=== PATIENT | female | born 1935 | race Caucasian/White ===

== ENCOUNTER 2016-10-21 18:41 | Observation (INO) ==
[2016-10-21 19:19] LABS: MANUAL DIFF NEEDED? NO
[2016-10-21 19:34] LABS: BASO% 0.2 % (0.0-0.8); EOS% 3.6 % (0.0-10.0); HEMATOCRIT 42.5 % (37.0-47.0); HEMOGLOBIN 13.5 g/dL (12.0-16.0); IMM GRAN# 0.01 X1000 (0.0-0.04); IMM GRAN% 0.1 % (0.0-0.5); LYMPH# 1.65 X1000 (1.2-3.4); MCHC 31.8 g/dL (33-37); MCV 97.7 FL (81-99); MONO# 0.84 X1000 (0.11-0.59); MONO% 10.2 % (1.7-9.3); MPV 9.9 FL (7.4-10.4); NEUT% 65.9 % (42.2-75.2); PLT 344 X1000 (130-400); RBC 4.35 XMIL (4.2-5.4)
[2016-10-21 19:43] LABS: ALBUMIN 4.3 g/dL (3.5-5.0); CALCIUM 9.8 mg/dL (8.8-10.2); MAGNESIUM 2.1 mg/dL (1.5-2.7); POTASSIUM 3.9 mmol/L (3.5-5.1); TOTAL BILIRUBIN 0.3 mg/dL (0.20-1.00); TOTAL PROTEIN 8.5 g/dL (6.3-8.3)
[2016-10-21 20:20] LABS: INR 1.69 (0.86-1.15); PROTIME 21.2 Seconds (12.1-15.5)
[2016-10-21 20:21] LABS: PTT PL 38.3 Seconds (22.6-43.9)
--- NOTE | 2016-10-21 20:27 | Diag Imaging Result Doc PS360 ---
EXAM: CHEST-2 VIEWS HISTORY: CP TECHNIQUE: PA and lateral chest COMMENT: The heart size is slightly enlarged. There is evidence of COPD. There is been no significant change in the appearance of the chest since the previous study of 03/13/2016. IMPRESSION: Stable chest. Electronically signed by Gopi Reyes 10/21/2016 8:23 PM
--- NOTE | 2016-10-21 20:29 | EKG Report ---
Test Performed on : 10/21/2016 7:05:48 PM Test Reason : CHEST PAIN Blood Pressure : / mmHG Vent. Rate : 060 BPM Atrial Rate : 060 BPM P-R Int : 156 ms QRS Dur : 090 ms QT Int : 404 ms P-R-T Axes : 033 -07 061 degrees QTc Int : 404 ms Atrial-paced rhythm Abnormal ECG No previous ECGs available Unconfirmed Result
[2016-10-21] MEDS ORDERED: PRINIVIL PO ONE (21:03)
[2016-10-21] MEDS ORDERED: CORDARONE PO ONE (21:15)
[2016-10-21] MEDS ORDERED: NS 1,000 ML IV ONE (23:05)
[2016-10-22] MEDS ORDERED: CORDARONE PO ONE (00:15)
[2016-10-22] MEDS ORDERED: PRINIVIL PO ONE (00:15)
[2016-10-22] MEDS ORDERED: XARELTO PO SCH ×2 (06:00→09:15)
[2016-10-22] MEDS ORDERED: PRINIVIL PO SCH (09:15)
[2016-10-22] MEDS: VITAMIN B-12 PO SCH (10:26)
[2016-10-22] MEDS: VITAMIN D PO SCH (10:27)
[2016-10-22] MEDS: CORDARONE PO SCH (10:27)
--- NOTE | 2016-10-22 10:44 | HISTORY AND PHYSICAL ---
PRIMARY CARE PHYSICIAN: Dr. Castanon. CHIEF COMPLAINT: Syncopal episode. HISTORY OF PRESENTING ILLNESS: This is an 81-year-old female who presents to [facility] ER with complaints of a syncopal episode. States that around midnight she had gotten up to go to the bathroom. When she went to stand up, she apparently passed out. States that she does not remember that episode, but remembers waking up on the floor, stayed there pretty much through the entire night as she was unable to get up out of the floor. The next morning, she states that she scooted herself across the floor into her living room to a phone, called a friend who had manager merchandise at her apartment complex come in, unlocked the door and called 911 where she was brought to the emergency room. Workup was essentially benign. Chest x- ray showed a stable chest. EKG showed an atrial paced rhythm at 60. She has a mild elevation in her D-dimer at 0.89, but I think this is just an incidental finding as she has been on Xarelto 20 mg p.o. daily for a history of atrial fibrillation, but she was admitted to the medical unit for further evaluation and treatment. PAST MEDICAL HISTORY: Atrial fibrillation, hypertension and hyperlipidemia. PAST SURGICAL HISTORY: Left knee, right femur repair and a pacemaker placement. FAMILY HISTORY: Noncontributory. SOCIAL HISTORY: She currently lives alone. Denies any tobacco, alcohol, or illicit drug use. ALLERGIES: She has no known drug allergies. HOME MEDICATIONS: She takes: 1. Amiodarone 200 mg p.o. daily. 2. Vitamin D 3 2000 units p.o. daily. 3. Vitamin B 12 3000 mcg p.o. daily. 4. Lisinopril 20 mg p.o. daily. 5. Xarelto 20 mg p.o. daily. LABORATORY DATA: Showed a white blood cell count of 8.27, hemoglobin 13.5, hematocrit 42.5, platelets 344. PT and INR of 21.2 and 1.69 with a D-dimer of 0.89. Sodium of 135, potassium 3.9, chloride 97, CO2 27, BUN of 22, creatinine 1.1, glucose 118. Creatine kinase of 109 with a troponin of less than 0.010. ProBNP of 96. IMAGING DATA: Chest x-ray showed a stable chest and an EKG that showed an atrial paced rhythm at 60. REVIEW OF SYSTEMS: She denied any fever, chills, blurred vision, dizziness. She was positive for weakness. She denied any chest pain, coughing, shortness of breath, constipation, diarrhea, nausea, vomiting, burning or hurting with urination or abdominal pain. PHYSICAL EXAMINATION: VITAL SIGNS: On arrival showed a temperature of 98 degrees, pulse 76, respirations of 18, blood pressure 144/65, satting 97% on room air. GENERAL: This is an 81-year-old female, who is sitting up in the bed and answers all questions appropriately. HEENT: Normocephalic and atraumatic. Pupils are equal, round, reactive to light. Extraocular movements are intact. The oropharynx and nares are clear. NECK: Supple. LUNGS: Clear to auscultation bilaterally with equal lung expansion and chest wall movement. HEART: With regular rate and rhythm. No murmurs, rubs, or gallops. ABDOMEN: Soft, nontender, nondistended. Bowel sounds are present x4 quadrants. EXTREMITIES: There is no clubbing, cyanosis, or edema. NEUROLOGICAL: The cranial nerves 2-12 appear grossly intact. ASSESSMENT: 1. Syncope. 2. Elevated D-dimer. 3. Generalized weakness. 4. Hypertension. PLAN: She was admitted to the medical unit at [place], placed on telemetry. Healthy heart diet. We will check a carotid ultrasound and an echocardiogram today. Continue her home medications. This certainly could have been a vagal response when she passed out, but we will review the ordered tests and further orders pending. Dictated by MYRA Lee for Taye Cornell MD cc: MYRA Lee MD Zaheer Khan pt examined, agree with above, seen face to face, syncope without clear etiology , cardiac exam, shows murmur, but no ectopy, will have pacer interrogated, and pursue echo and carotid as [facility]
[2016-10-22] MEDS ORDERED: ZOFRAN IV PRN (11:34)
--- NOTE | 2016-10-22 15:55 | Extremity Venous Study ---
EXAM: Carotid Ultrasound INDICATION: syncope TECHNIQUE: COMPARISON: 12/21/2012 FINDINGS: Similar to the previous study, thyroid nodules are identified incidentally suggesting multinodular goiter. Right: There is patchy atherosclerotic calcification involving the carotid bifurcation extending into the ICA on grayscale imaging. The peak systolic velocity measures 93, 104, 88, 71, 108, 85, and 113 cm/s at the right subclavian artery, CCA, bifurcation, proximal ICA, mid ICA, distal ICA, and ECA, respectively. There is antegrade flow in the vertebral artery. The carotid ratio is 1.04. Left: There is patchy atherosclerotic calcification at the carotid bifurcation extending into the ICA on grayscale imaging. The peak systolic velocity measures 113, 104, 62, 76, 95, 84, and 76 cm/s at the left subclavian artery, CCA, bifurcation, proximal ICA, mid ICA, distal ICA, and ECA, respectively. There is antegrade flow in the vertebral artery. The carotid ratio is 0.91. IMPRESSION: Bilateral atherosclerotic calcification as described that is causing only mild stenosis at the proximal ICAs based on hemodynamics. Electronically signed by Sandeep Patel 10/22/2016 3:53 PM
[2016-10-23] MEDS: NS 1,000 ML IV SCH ×2 (00:22→08:18)
[2016-10-23 06:08] LABS: HEMATOCRIT 39.3 % (37.0-47.0); HEMOGLOBIN 12.3 g/dL (12.0-16.0); MCH 30.6 PG (27-31); MCHC 31.3 g/dL (33-37); MCV 97.8 FL (81-99); MPV 10.1 FL (7.4-10.4); RBC 4.02 XMIL (4.2-5.4)
[2016-10-23 06:37] LABS: CALCIUM 9.1 mg/dL (8.8-10.2); POTASSIUM 4.2 mmol/L (3.5-5.1)
[2016-10-23] MEDS ORDERED: XARELTO PO SCH (08:00)
[2016-10-23] MEDS: VITAMIN D PO SCH (08:17)
[2016-10-23] MEDS: CORDARONE PO SCH (08:17)
[2016-10-23] MEDS: VITAMIN B-12 PO SCH (08:18)
--- NOTE | 2016-10-23 09:28 | ECHO REPORT ---
ORDER DATE: 10/22/2016 MEASUREMENTS: Left ventricular end-diastolic diameter 3.2, end-systolic diameter 1.5, posterior wall thickness 1.0, septal thickness 1.0, left atrium 2.8, aortic root 2.8. SUMMARY: 1. Technically difficult study due to limited acoustic window quality. 2. Aortic valve is sclerotic, but appears to open adequately on 2-dimensional images. Velocities across aortic valve are elevated and appear to be due to hyperdynamic left ventricle in the setting of aortic valve sclerosis without significant stenosis. There is mild aortic regurgitation. Mild mitral annular calcification is demonstrated. Trace mitral regurgitation is demonstrated. Tricuspid and pulmonic valves are without structural abnormality, with mild tricuspid regurgitation and mild pulmonic insufficiency. The estimated systolic PA pressure by Doppler is 45 to 50 mmHg. The aortic root is normal size. 3. Normal left ventricular chamber size with borderline concentric left ventricular hypertrophy suggested on 2-dimensional images. Estimated left ventricular ejection fraction appears to be at least 70%. No regional wall motion abnormalities are evident. Doppler suggests grade 1 left ventricular diastolic dysfunction. Left atrium, right atrium, and right ventricle are normal in size, with normal right ventricular systolic function. Doppler suggests grade 1 left ventricular diastolic dysfunction. The velocity time interval for the left ventricular outflow tract is 42, suggesting hyperdynamic left ventricular function. Left atrium, right atrium, and right ventricle are normal in size with normal right ventricular systolic function. 4. No pericardial effusion. 5. Appearance of inferior vena cava suggests normal central venous pressure. CONCLUSIONS: 1. Technically difficult study. 2. Aortic valve sclerosis without significant stenosis. Doppler velocities across the aortic valve are elevated due to hyperdynamic left ventricle. 3. Mild tricuspid regurgitation with mild pulmonary hypertension by Doppler. 4. Borderline concentric left ventricular hypertrophy with hyperdynamic left ventricle. 5. Grade 1 left ventricular diastolic dysfunction. cc: MD Eugenia Carrillo CRNP
[2016-10-23 11:00] VITALS: BP 106/45
--- NOTE | 2016-10-24 08:36 | DISCHARGE SUMMARY ---
ADMISSION DATE: 10/21/2016 DISCHARGE DATE: 10/23/2016 DISCHARGE DIAGNOSIS: Syncope, possibly vasovagal versus related to her antihypertensives. BRIEF HISTORY: Briefly, this is a very pleasant, 81-year-old female with atrial fibrillation status post pacemaker who was standing and passed out, I think, when she was going to the bathroom. She does not remember the events her anything to that effect. She had already been on Xarelto, so she was on Xarelto when she came in. She was admitted and placed in observation. Telemetry was unremarkable. Serial cardiac enzymes were negative. She was orthostatic or close to orthostatics based on her blood pressures, and she says her blood pressure has been low since she has been in the hospital. I am concerned possibly her lisinopril, maybe she is getting too much effect from the antihypertensive. In any case, the cardiac enzymes were negative. Her D- dimer was slightly positive, but she is on Xarelto. I did not feel she was at risk for PE. She was not hypoxic or tachycardic. We did undergo a carotid ultrasound which showed mild stenosis, but no significant stenosis. Her echocardiogram done by Dr. Beavers showed aortic valve sclerosis without stenosis. Mild TR, borderline concentric left ventricular hypertrophy and grade 1 left ventricular diastolic dysfunction. She was given gentle hydration and she was stable the following day. We did interrogate her pacemaker, and pacemaker function was felt to be within normal limits, per pacemaker interrogation. She did have an episode of atrial tachycardia, but it was on the 18 of September, not related to this current event. I did decrease her lisinopril because her blood pressures have been in the one-teens and she was orthostatic, and encouraged her to follow up with Dr. Fabian who will make final recommendations concerning her amiodarone and lisinopril. DISCHARGE CONDITION: Stable. TIME SPENT: 32 minutes on discharge. cc: MD Hoang Wall MD
--- NOTE | 2016-10-30 15:43 | PROVIDER DOCUMENTATION ---
This chart was entered by Fauzia Berumen Scribe, acting as scribe for Marcelo Suarez MD. HPI-Syncope/Dizziness - General Chief Complaint: Syncope Stated Complaint: FALL Time Seen by Provider: 10/21/16 19:20 Source: patient Allergies/Adverse Reactions: Patient Allergies Allergy/AdvReac Type Severity Reaction Status Date / Time No Known Allergies Allergy Verified 10/28/16 23:45 Home Medications: Home Medication List Medication Instructions Recorded Confirmed Last Taken Type Amiodarone [Cordarone] 200 mg PO DAILY 07/30/13 10/28/16 10/21/16 History Cholecalciferol (Vitamin D3) 2,000 unit PO DAILY 10/21/16 10/28/16 10/21/16 History [D3-2000] Cyanocobalamin (Vitamin B-12) 3,000 mcg PO DAILY 10/21/16 10/28/16 10/21/16 History [B-12] Rivaroxaban [Xarelto] 20 mg PO DAILY 10/21/16 10/28/16 10/21/16 History Lisinopril 10 mg PO DAILY #30 10/23/16 10/28/16 10/21/16 Rx - History of Present Illness-Syncope/Dizzy Nature of Presenting Problem: 81 Y/O F presents to ED with syncope. Pt states that she fell last night around midnight, unsure of how she fell. States prior to fall she felt cold on the inside and weakness. Pt states that she laid on the floor all night unable to pick self off of the ground. Pt states that she had bilateral knee surgery previously. C/o of Left shoulder pain but has full ROM. Pt states that she was able to call son and that she lives in a care facility area but alone. Pt states felt the same feeling 1hr ABLE BODIED SEAMAN and came to ED. Prior Episodes: reports: no prior history Onset/Duration: reports: last night Timing: reports: gone now Symptoms prior to episode: reports: other (CHILLS, Weakness). denies: lightheaded, visual disturbance, nausea/vomiting, confusion, diaphoresis Context: reports: felt faint Loss of Consciousness: no loss of consciousness Location of injury. (If syncope resulted in an injury.): reports: none Current Symptoms: reports: chills, weakness. denies: sweaty, nausea, vomiting, headache, weak pulse, headache Recently Seen Here or By Another Healthcare Provider: No Review of Systems - Adult - REVIEW OF SYSTEMS - ADULT Constitutional: reports: chills. denies: fever Eyes: reports: no symptoms reported Ears, Nose, Mouth & Throat: reports: no symptoms reported Cardiovascular: reports: no symptoms reported Respiratory: reports: no symptoms reported Gastrointestinal: denies: constipation, difficulty swallowing, frequent heartburn, nausea, vomiting, other Genitourinary: denies: discharge Musculoskeletal: reports: muscle weakness. denies: bone pain, back pain Integumentary: reports: no symptoms reported Neurological: reports: no symptoms reported Psychiatric: reports: no symptoms reported Endocrine: reports: no symptoms reported Hematologic/Lymphatic: reports: no symptoms reported Allergic/Immunologic: reports: no symptoms reported All Other Systems: Reviewed and Negative Past History - Adult - PAST MEDICAL HISTORY-ADULT Review of Records: reports: Old Records Reviewed, Nursing Assessment Review, Medications Reviewed, Social history reviewed & non-contributory. Major Childhood Illnesses: reports: denies history Cardiovascular: reports: A-Fib, HTN, hyperlipidemia Musculoskeletal: reports: osteoporosis - FAMILY HISTORY Family History: reviewed, not pertinent - SOCIAL HISTORY Smoking: non-smoker Substance Use: none/never Alcohol Use Frequency: never Living Situation: care facility Physical Exam-General - CONSTITUTIONAL General Appearance: alert, no apparent distress - EYES Eyes: pink conjunctivae - HEAD, EARS, NOSE, MOUTH & THROAT HENMT: moist mucous membranes, normal ENT inspection, TMs normal - NECK Neck: full range of motion, supple, normal inspection - RESPIRATORY Respiratory: lungs clear, normal breath sounds - CARDIOVASCULAR Cardiovascular: regular rate, rhythm, no edema, no gallop, no JVD - GASTROINTESTINAL (ABDOMEN) Abdominal Exam: non tender, soft - LYMPHATIC Lymphatic: no adenopathy - MUSCULOSKELETAL Back Exam: no CVA tenderness, no vertebral tenderness Extremity: non-tender - SKIN Integumentary: normal color, normal turgor - NEUROLOGIC Neurologic: grossly normal - PSYCHIATRIC Psych/Mental Status: normal mood/affect, normal thought content, normal thought process, oriented x 3 Progress - PLAN OF CARE/RESULTS Progress/Plan/Lab Results: Orders Category Date Time Status Admit - [facility] Routine AdmDCTranf 10/21/16 23:05 Ordered Cardiac Monitoring DIRECTED Care 10/21/16 19:04 Completed Saline Loc NOW Care 10/21/16 19:04 Completed Vital Signs Order Q 4-HR ASSESS Care 10/21/16 23:05 Active Z-Document. for Tele Applied ORDERED Care 10/21/16 23:05 Completed Heart Healthy Diet Diet 10/21/16 21:01 Completed CHEST-2 VIEWS [RAD] Stat Exams 10/21/16 19:04 Completed CBC WITH ELECTRONIC DIFF [HEME] Stat Lab 10/21/16 19:14 Completed CK PROFILE [SP CHEM] Stat Lab 10/21/16 19:14 Completed COMPREHENSIVE METABOLIC PANEL [CHEM] Stat Lab 10/21/16 19:14 Com[address] D-DIMER PL [COAG] Stat Lab 10/21/16 19:14 Completed MAGNESIUM [CHEM] Stat Lab 10/21/16 19:14 Completed PRO B-NATRIURETIC PEPTIDE Stat Lab 10/21/16 19:14 Completed [address]OTIME WITH INR PL [COAG] Stat Lab 10/21/16 19:[address] [COAG] Stat Lab 10/21/16 19:14 Completed TROPONIN T Stat Lab 10/21/16 19:14 Completed 0.9% Sodium Chloride Inj [Ns] 1,000 ml Med 10/21/16 23:05 Discontinued IV KVO Amiodarone [Cordarone] Med 10/21/16 21:15 Discontinued 200 mg PO NOW ONE LISINOpril [Prinivil] Med 10/21/16 21:03 Discontinued 20 mg PO NOW ONE Rivaroxaban [Xarelto] Med 10/22/16 06:00 Discontinued 20 mg PO DAILY@0600 Telemetry [OM.EQ] Routine Oth 10/21/16 23:05 Active EKG [EKG] Stat Ther 10/21/16 19:04 Draft Transfer/Admit Order [TRANSFER] Routine Transfer 10/21/16 20:59 Completed Result Diagrams: 10/23/16 05:05 10/23/16 05:05 - EKG 1 Time of EKG reading by physician:: 19:05 EKG Read and Signed by:: Marcelo Suarez EKG Interpretation (*Must complete 3 of following elements*): Normal Rate: 60 Rhythm: NSR Comments: Normal ECG - XRAY 1 XRAY Study: Chest Impression: Normal XRAY Interpretation: NAD Departure - Departure Date of Disposition Decision: 10/21/16 Time of Disposition Decision: 20:59 DIAGNOSIS: Syncope Disposition: STILL A PATIENT 30 Certified Medical Emergency: Emergent Condition: Stable - Critical Care Note This patient required my direct & personal management of CC.: No Attestation - Physician/ RASHID Attestation The physician spent face to face time with patient:: Yes Advanced Practice Provider documentation review:: Supervising physician onsite and consulted in the evaluation and care of this patient. The physician did have a face to face encounter with the patient. This chart was documented by the indicated scribe, (Fauzia Berumen Scribe) and accurately reflects the services I performed and decisions made by me, Marcelo Suarez MD, as attested by the provider's signature.
== END 2016-10-23 16:00 | disposition home or self-care (01) ==
LOC: P.ED 18:41 → P.MEDSURG 18:41 → SUATTDRO 21:46
PROVIDERS: ATTEND Internal Medicine

== ENCOUNTER 2018-05-12 16:18 | Inpatient (IN) ==
[2018-05-12] MEDS ORDERED: MORPHINE IV ONE (16:47)
[2018-05-12] MEDS ORDERED: ZOFRAN IM ONE (16:47)
--- NOTE | 2018-05-12 17:45 | Diag Imaging Result Doc PS360 ---
EXAM: CHEST-1 VIEW HISTORY: possible hip fracture TECHNIQUE: Chest single view COMPARISON: 04/08/2017 FINDINGS: The lungs are well expanded. The heart is enlarged. There is a left-sided pacemaker. The vessels are not distended. There are no infiltrates. No effusion identified. Mild scoliosis. IMPRESSION: Cardiomegaly Electronically signed by Rafa Garrison 05/12/2018 5:42 PM
--- NOTE | 2018-05-12 17:47 | Diag Imaging Result Doc PS360 ---
EXAM: XRAY PELVIS W/HIP 2-3VW LT HISTORY: injury TECHNIQUE: Pelvis and left hip, five views COMPARISON: None. FINDINGS: There is a fracture to the left femoral neck extending toward the greater trochanter. The fracture does not involve the greater trochanter. The femoral head remains in the acetabulum. The femoral shaft is rotated and superiorly placed. IMPRESSION: Left femoral neck fracture. Electronically signed by Rafa Garrison 05/12/2018 5:45 PM
--- NOTE | 2018-05-12 17:48 | Diag Imaging Result Doc PS360 ---
EXAM: FEMUR MIN 2 VIEWS LEFT HISTORY: injury TECHNIQUE: Left femur four views COMPARISON: None. FINDINGS: There is a fracture to the left femoral neck. Femoral head remains in the acetabulum. The femoral shaft is rotated and superiorly placed. There has been orthopedic replacement of the knee. IMPRESSION: Left femoral neck fracture. Electronically signed by Rafa Garrison 05/12/2018 5:46 PM
[2018-05-12 18:02] LABS: BASO# 0.02 X1000 (0.0-0.2); BASO% 0.2 % (0.0-0.8); EOS% 0.9 % (0.0-10.0); HEMATOCRIT 46.7 % (37.0-47.0); HEMOGLOBIN 14.7 g/dL (12.0-16.0); IMM GRAN# 0.04 X1000 (0.0-0.04); IMM GRAN% 0.4 % (0.0-0.5); LYMPH# 1.19 X1000 (1.2-3.4); LYMPH% 10.6 % (20.5-51.1); MCH 32.2 PG (27-31); MCHC 31.5 g/dL (33-37); MCV 102.4 FL (81-99); MONO# 0.81 X1000 (0.11-0.59); MONO% 7.2 % (1.7-9.3); MPV 9.5 FL (7.4-10.4); NEUT# 9.03 X1000 (1.4-6.5); NEUT% 80.7 % (42.2-75.2); PLT 307 X1000 (130-400); RBC 4.56 XMIL (4.2-5.4); RDW 13.3 % (11.5-14.5); WBC 11.19 X1000 (4.8-10.8)
[2018-05-12 18:09] LABS: INR 1.64; PROTIME 20.7 Seconds (11.0-16.0); PTT 30.7 Seconds (22.3-41.8)
[2018-05-12 18:32] LABS: AGAP 14; ALB/GLOB RATIO 1.1; ALBUMIN 4.1 g/dL (3.5-5.0); ALKALINE PHOSPHATASE 90 U/L (32-104); BUN 20 mg/dL (8-22); CALCIUM 9.9 mg/dL (8.8-10.2); CHLORIDE 100 mmol/L (98-107); COSMO 284; CREATININE 0.8 mg/dL (0.5-0.9); ESTIMATED GFR > 60; GLUCOSE 109 mg/dL (70-104); GOT 16 U/L (10-30); GPT 10 U/L (10-36); POTASSIUM 4.1 mmol/L (3.5-5.1); SODIUM 141 mmol/L (136-145); TCO2 27 mmol/L (25-35); TOTAL BILIRUBIN 0.38 mg/dL (0.20-1.00)
[2018-05-12 19:51] LABS: URINE SOURCE CLEAN CATCH
[2018-05-12 19:57] LABS: BILIRUBIN URINE NEGATIVE (NEGATIVE); BLOOD URINE MODERATE (NEGATIVE); COLOR YELLOW; GLUCOSE URINE NEGATIVE (NEGATIVE); KETONE URINE TRACE mg/dL (NEGATIVE); LEUKOCYTES URINE NEGATIVE (NEGATIVE); NITRITE URINE NEGATIVE (NEGATIVE); PH URINE 6.5; PROTEIN URINE NEGATIVE (NEGATIVE); SP GRAVITY URINE 1.016; TURBIDITY URINE CLEAR (CLEAR); UROBILINOGEN URINE NORMAL (NORMAL)
[2018-05-12 19:59] LABS: UR EPITHELIAL CELLS <10 /HPF (<10); URINE BACTERIA NEGATIVE /HPF; URINE RBC 20-40 /HPF (<10); URINE WBC <10 /HPF (<10)
[2018-05-12 20:11] LABS: URINE YEAST NONE SEEN
[2018-05-12] MEDS ORDERED: OXY IR PO PRN (20:17)
[2018-05-12] MEDS ORDERED: TYLENOL PO PRN ×2 (20:17→21:53)
[2018-05-12] MEDS ORDERED: MORPHINE IV PRN (20:17)
[2018-05-12] MEDS ORDERED: NS 1,000 ML IV SCH (20:17)
[2018-05-12] MEDS ORDERED: KEFZOL 2 GM/D5W 2 GM/50 ML IVPB IV ONE ×2 (20:43→21:57)
[2018-05-12] MEDS ORDERED: MIRALAX PO SCH (21:00)
--- NOTE | 2018-05-12 21:25 | CONSULTATION ---
DATE OF CONSULTATION: 05/12/2018 CHIEF COMPLAINT: Left hip injury. HISTORY OF PRESENT ILLNESS: Ms. Manzo is an 83-year-old female who had a same- level fall, complained of left hip pain and inability to ambulate. Was seen in the emergency room where she was diagnosed with a left basicervical femoral neck fracture. She denies any loss of consciousness. I was asked to see her in orthopedic consultation. PAST MEDICAL HISTORY: History of adenocarcinoma of the duodenum, syncope, as well cardiovascular disease. PAST SURGICAL HISTORY: See hospital record. MEDICATIONS: Include: Amiodarone, vitamin D3, vitamin B12, iron, MiraLAX, Xarelto and Ultram. ALLERGIES: No known drug allergies. SOCIAL HISTORY: She denies alcohol or tobacco use. REVIEW OF SYSTEMS: Left hip pain and inability to ambulate. Otherwise, all systems are normal with no complaints. PHYSICAL EXAMINATION: General: Physical exam reveals a well-developed, well- nourished female. She is cooperative with exam. Left Hip: Examination of her hip reveals pain with any range of motion. Her leg is otherwise neurovascularly intact. IMAGING: X-rays show a basicervical femoral neck fracture. IMPRESSION: Left basicervical femoral neck fracture. PLAN: We will plan on performing a trochanteric fixation nail placement tomorrow. I have discussed with her the risks, benefits, and alternatives of the surgery including but not limited to bleeding, nerve damage, infection, risk from anesthesia, hardware failure, malunion, nonunion, up to and including loss of limb, life, and other imponderables. She voices her understanding. All questions were answered. No guarantees were given. She requested to proceed as planned. cc: Benji Jean Baptiste MD [facility]
[2018-05-12] MEDS: NS 1,000 ML IV SCH (22:18)
[2018-05-12] MEDS: OXY IR PO PRN (22:18)
[2018-05-13] MEDS ORDERED: FLU VACCINE IM ONE (01:41)
--- NOTE | 2018-05-13 02:13 | HISTORY AND PHYSICAL ---
PRIMARY CARE PHYSICIAN: Patient of Dr. Marisol Martinez, [place], [place]. REASON FOR ADMISSION: Right lower extremity pain for 2 days. HISTORY OF PRESENT ILLNESS: Ms. Deanna Sotomayor is an 83-year-old lady with past medical history of paroxysmal atrial fibrillation with pacemaker, osteoporosis, macular degeneration, who comes in today complaining of a 2-day history of right hip pain radiating to her back and her groin. She says this happened spontaneously yesterday afternoon. She has had to use a walker to get around her house. Sometime this afternoon, she woke up with the same pain, which she describes as sharp and she was in pain. While she was going to her kitchen, she noticed she felt a little snap in her left hip. The pain now started shooting down her leg and she said she was unable to ambulate any further even with her walker, so she sat down. For the next 2 hours, she called out to her neighbor for help but nobody responded. Her son tried to reach her and she could not get to the phone. After about an hour or so, the son appeared in her house because he was concerned his mother had not responded. He called EMS and she was brought to the ER. She denied any falls or any direct trauma to her left hip. She denied any discoloration of her foot. She denied any GI or complaints or cardiorespiratory complaints. REVIEW OF SYSTEMS: Only notable for chronic right lower extremity swelling; has not gotten worse. No PND or orthopnea. Otherwise, a 12-system review was done. Positive findings as per HPI. ALLERGIES: No known drug allergies. HOME MEDICATIONS: 1. Vitamin B12, 3000 mcg daily. 2. Amiodarone 200 mg daily. 3. Vitamin D, 2000 units daily. 4. Iron sulfate 325 mg daily. 5. Xarelto 20 mg daily. 6. MiraLAX 17 grams daily. 7. Ultram 5 mg q.6h p.r.n. 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 FAMILY HISTORY: Notable for lung cancer and colon cancer in first-degree relatives. SOCIAL HISTORY: She lives alone. No alcohol or illicit drug use. LABORATORY WORK: Notable for white count of 11,000, hemoglobin 14, hematocrit 42, MCV of 102, platelets 307 with 80% neutrophils. BUN 20, creatinine 0.8, glucose 109. PT 20, INR 1.6, PTT 30. Urinalysis shows 20-40 RBCs. Chest x-ray shows cardiomegaly. X-ray of the femur shows left femoral neck fracture. EKG is pending at this time. PHYSICAL EXAMINATION: VITAL SIGNS: Blood pressure 150/76, heart rate 63, respirations 18, temperature 97.8 degrees. GENERAL: She is a pleasant, elderly, woman who is alert and oriented x 3 with normal mood and affect. HEAD: Head is normocephalic, atraumatic. EYES: PERRLA. She is anicteric and not pale. ENT: Oropharynx exam is grossly normal. NECK: Supple. She has visible JVD noted but no hepatojugular reflux. No carotid bruits. No thyromegaly. CHEST: Clear to auscultation in both lung bermudez. CARDIOVASCULAR: First and second heart sounds heard. No gallops or rubs. She has a 3/6 systolic ejection murmur radiating to the neck. Rhythm is regular. ABDOMEN: Protuberant and soft. No tenderness or organomegaly. Bowel sounds normal. RECTAL: Exam is deferred. EXTREMITIES: The patient has shortened left lower extremity with extremity rotated. She has 1+ pitting edema of the lower extremities. She has good distal pulses, symmetrical, regular. No distal discoloration. No peripheral cyanosis. No clubbing. NEUROLOGIC: No gross focal deficits. Able to wiggle her toes in both feet. SKIN: Intact with no breakdown, lesions or erythema. MUSCULAR: As noted above. Tenderness on the outer part of her left hip to palpation. ASSESSMENT: 1. Left femoral neck fracture. 2. Atrial fibrillation. 3. Probable stable congestive heart failure. Last echocardiogram showed ejection fraction of 70% two years ago. Also showed aortic sclerosis but no stenosis. Atrium was moderately dilated. 4. Osteoporosis. PLAN: We will get Cardiology input for preoperative clearance due to the fact that the patient has mild clinical symptoms of what I presume to be stable CHF. The patient will need to be optimized from that standpoint prior to surgery. She did mention to me that she was on a diuretic, furosemide, but I did not see it on her home medication list. This needs to be addressed. Very cautious IV fluids infusion with this patient due to her clinical picture. I held the patient's Xarelto in light of patient's surgery, which I anticipate may be in 48 hours, and in that window probably she can be tuned up appropriately. I will order an echocardiogram also, since she will not be able to go for surgery as she has been on Xarelto. In the meantime, the patient will be treated symptomatically. Dr. Jean Baptiste of the orthopedic team was notified and he will see the patient in the a.m.. Bowel regimen was started. cc: Gage Foster MD
[2018-05-13] MEDS: MORPHINE IV PRN (05:53)
[2018-05-13 06:33] LABS: BASO# 0.02 X1000 (0.0-0.2); BASO% 0.3 % (0.0-0.8); EOS% 2.9 % (0.0-10.0); HEMATOCRIT 43.4 % (37.0-47.0); HEMOGLOBIN 13.5 g/dL (12.0-16.0); LYMPH# 1.41 X1000 (1.2-3.4); LYMPH% 20.2 % (20.5-51.1); MCH 32.6 PG (27-31); MCHC 31.1 g/dL (33-37); MCV 104.8 FL (81-99); MONO# 0.81 X1000 (0.11-0.59); MONO% 11.6 % (1.7-9.3); MPV 9.7 FL (7.4-10.4); NEUT# 4.55 X1000 (1.4-6.5); PLT 281 X1000 (130-400); RBC 4.14 XMIL (4.2-5.4); RDW 13.6 % (11.5-14.5); WBC 6.99 X1000 (4.8-10.8)
[2018-05-13 07:11] LABS: AGAP 9; BUN 20 mg/dL (8-22); CALCIUM 9.3 mg/dL (8.8-10.2); CHLORIDE 103 mmol/L (98-107); COSMO 288; CREATININE 0.8 mg/dL (0.5-0.9); ESTIMATED GFR > 60; GLUCOSE 104 mg/dL (70-104); POTASSIUM 3.8 mmol/L (3.5-5.1); SODIUM 143 mmol/L (136-145); TCO2 31 mmol/L (25-35)
[2018-05-13 07:42] LABS: TSH 0.67 uIUmL (0.27-4.20)
--- NOTE | 2018-05-13 07:59 | EKG Report ---
Test Performed on : 05/13/2018 07:06:57 AM Test Reason : chest pain Blood Pressure : / mmHG Vent. Rate : 060 BPM Atrial Rate : 060 BPM P-R Int : 170 ms QRS Dur : 086 ms QT Int : 430 ms P-R-T Axes : 000 -24 040 degrees QTc Int : 430 ms Atrial-paced rhythm Minimal voltage criteria for LVH, may be normal variant Abnormal ECG When compared with ECG of 11-MAR-2017 06:52, No significant change was found Unconfirmed Result
[2018-05-13] MEDS ORDERED: FERROUS SULFATE PO SCH (09:00)
[2018-05-13] MEDS ORDERED: VITAMIN D PO SCH (09:00)
[2018-05-13] MEDS ORDERED: CORDARONE PO SCH (09:00)
[2018-05-13] MEDS: VITAMIN D PO SCH (09:08)
[2018-05-13] MEDS: FERROUS SULFATE PO SCH (09:08)
[2018-05-13] MEDS: CORDARONE PO SCH (09:08)
[2018-05-13] MEDS: MIRALAX PO SCH ×2 (09:08→21:09)
[2018-05-13] MEDS ORDERED: DIPRIVAN 1% ONE (10:00)
[2018-05-13] MEDS ORDERED: XYLOCAINE-MPF 2% ONE (10:03)
--- NOTE | 2018-05-13 11:38 | CONSULTATION ---
DATE OF CONSULTATION: 05/13/2018 IMPRESSION: 1. Status post left hip fracture without fall. 2. Sinus node dysfunction. Patient is status post previous permanent pacemaker. 3. Paroxysmal atrial fibrillation. Patient continues in sinus rhythm on amiodarone. 4. Obesity. 5. History of previous syncope, felt to be vasodepressor syncope in the past which had occurred after she had a permanent pacemaker placed. 6. Systolic murmur noted. This may be mild aortic stenosis versus sclerosis but exam does not suggest severe valvulopathy. RECOMMENDATIONS: 1. The patient appears to be an acceptable cardiovascular risk for elective repair of a right hip fracture under general anesthesia. 2. Continue amiodarone 200 mg daily. 3. Leave off Xarelto until acceptable from a surgical standpoint. HISTORY: This 83-year-old, [place] female with a past history of sick sinus syndrome, previous permanent pacemaker, paroxysmal atrial fibrillation suppressed with amiodarone was admitted last night after she was found to have a left hip fracture. She reports a 2-day history of left hip pain, radiating to her back and groin. This started to occur while she was walking with her walker. There was no fall. Yesterday, the pain suddenly got worse and she was unable to walk or bear weight. There was no fall. She was brought to the emergency room and found to have a left femoral neck fracture. She denies any chest pain or shortness of breath. There has been no recent syncope nor fall. PAST MEDICAL HISTORY: 1. Sick sinus syndrome with previous permanent pacemaker. 2. Paroxysmal atrial fibrillation, suppressed with amiodarone. 3. History of previous syncope related to was felt to be vasodepressor syncope. PAST SURGICAL HISTORY: Left total knee arthroplasty and right hip arthroplasty. She has also had previous unspecified left wrist surgery. She has a history of left duodenal resection for malignancy. ALLERGIES: She has no known drug allergies. MEDICATIONS PRIOR TO ADMISSION: As listed. SOCIAL HISTORY: She lives at home alone but has family in the area. She does not smoke or use alcohol. FAMILY HISTORY: Negative for premature coronary artery disease. REVIEW OF SYSTEMS: Pulmonary: Negative. Gastrointestinal: Negative. Constitutional: Negative. Remainder of the review of systems is negative/noncontributory with 14 total systems reviewed. PHYSICAL EXAMINATION: General: This is an obese, elderly female in no distress. Vital Signs: Blood pressure 124/43, heart rate 60 and regular, oxygen saturation 100% on room air. Neck: Jugular venous pressure appears to be normal based on inspection of the neck veins. Chest: Clear to auscultation bilaterally. Cardiac: Examination reveals a regular rate and rhythm with a grade 1-2/6 systolic murmur at the right upper sternal border. Second heart sound is well preserved. No gallop could be appreciated. Abdomen: Soft, nontender. Bowel sounds are normal. Extremities: Demonstrate very mild edema with venous stasis changes. Neurologic: Examination reveals her to be alert and fully oriented. Speech is fluent. She moves all 4 extremities equally well. Skin: Warm and dry. Psychiatric: Examination reveals her mood to be appropriate. DIAGNOSTIC DATA: A 12 lead EKG demonstrates atrial paced rhythm and minimal voltage criteria for left ventricular hypertrophy. LABORATORY DATA: Includes a white blood cell count of 6.99, hematocrit 43.4, hemoglobin 13.5, platelet count 281,000. Sodium 143, potassium 3.8, chloride 103, carbon dioxide 31, BUN 20, creatinine 0.8, glucose 104. Pro-B natriuretic peptide level 134. cc: Yakov Beavers MD [facility]
[2018-05-13] MEDS ORDERED: TYLENOL PO PRN (12:55)
[2018-05-13] MEDS ORDERED: ZOFRAN ONE (14:50)
[2018-05-13] MEDS ORDERED: DECADRON ONE (14:50)
[2018-05-13] MEDS ORDERED: FENTANYL ONE ×2 (15:18→15:42)
--- NOTE | 2018-05-13 15:41 | OPERATIVE NOTE ---
PROCEDURE DATE: 05/13/2018 PREOPERATIVE DIAGNOSIS: Left displaced basicervical femoral neck fracture. POSTOPERATIVE DIAGNOSIS: Left displaced basicervical femoral neck fracture. PROCEDURE: Left trochanteric fixation nail placement. ANESTHESIA: General. SURGEON: Benji Jean Baptiste MD. MEASUREMENT SPECIALIST: HEIDI Carcamo, who was present throughout the case, whose assistance was critical for exposure, placement of the implant, and wound closure. Her assistance greatly reduced anesthesia and operative time and improved efficiency in the OR. BLOOD LOSS: Minimal. DESCRIPTION OF PROCEDURE: Patient was brought to the operative suite and placed in the supine position. After successful administration of general anesthesia, the patient was placed on the OSI table in the usual position for a left hip. The left hip was then prepped and draped in usual sterile fashion. It was reduced under fluoroscopy and then an incision was made proximal to the tip of the greater trochanter. A guide pin was placed in the center of the femoral canal. Once this was verified to be in good position, a derotation pin was placed in the anterior femoral neck just to keep the basicervical neck fracture from displacing. The canal was reamed and a 12 lead short trochanteric fixation nail was then driven into place through a stab incision laterally. Using the proximal guide, a guide pin was placed in the center of the femoral head. It was measured to 95 mm. It was reamed and a 95 mm helical blade was driven into place. Traction was released and it was compressed and the locking screw was driven into place and then backed up a half turn. Then through the previous stab incision for the distal locking screw, using the guide it was drilled and proper length screw of 42 mm was measured and driven into place. The guide was removed. Excellent placement the hardware and reduction of fracture was obtained on AP and lateral images. The wounds were copiously irrigated. Skin edge reapproximated with 2-0 Vicryl. Skin was closed with skin renetta and a sterile dressing was applied. The patient tolerated the procedure well without complications. At the end of the procedure all counts correct x2. The patient was transferred to the recovery room in stable condition. cc: Benji Jean Baptiste MD
[2018-05-13] MEDS: DEMEROL ONE ×2 (15:46→15:50)
--- NOTE | 2018-05-13 15:54 | ECHO REPORT ---
ORDER DATE: 05/12/2018 2-D ECHOCARDIOGRAM: MEASUREMENTS: 1. Interventricular septum 1.1. 2. Left ventricular posterior wall 1.1. 3. Diastolic diameter 3.0. SUMMARY: 1. Technically suboptimal study. Other measurements could not be accurately obtained. 2. Pulmonic valve not well visualized. 3. Aortic valve leaflets are trileaflet. Mitral valve was normal. There is mild mitral regurgitation. Mild tricuspid regurgitation. There is mitral annular calcification. Peak velocity across the aortic valve was 2.3 m/sec. There is no aortic stenosis. There is mild aortic regurgitation. There is mild tricuspid regurgitation. Peak velocity across the tricuspid valve was 2.5 m/sec. Pulmonary artery systolic pressure 35 mm Hg. 4. Normal left ventricular cavity size. Estimated ejection fraction of 60-65%. 5. There is no pericardial effusion. cc: MD Gage Amador MD
[2018-05-13] MEDS ORDERED: MORPHINE IV PRN (16:21)
[2018-05-13] MEDS ORDERED: HALDOL IV PRN (16:21)
[2018-05-13] MEDS ORDERED: ZOFRAN IV PRN (16:21)
[2018-05-13] MEDS ORDERED: MILK OF MAGNESIA PO PRN (16:21)
[2018-05-13] MEDS ORDERED: OXY IR PO PRN (16:21)
--- NOTE | 2018-05-13 17:22 | PROGRESS NOTE ---
DATE: 05/13/2018 SUBJECTIVE: Patient just came from the OR. She is completely alert and oriented x3. She is able to move all 4 extremities. She is not complaining of pain at this moment. She is willing to go to a rehabilitation center. She is status post left trochanteric fixation nail placement due to a left displaced basicervical femoral neck fracture. OBJECTIVE: Vital Signs: Temperature 98.8 degrees, pulse 60, respiratory rate 12, blood pressure 143/65, oxygen saturation 100% on room air. HEENT: Head normocephalic, no trauma. PERRLA. Neck: Supple. No JVD. No masses. Central trachea. Chest: Clear to auscultation. No wheezing. No rales. Abdomen: Soft, nontender, nondistended. No hepatosplenomegaly. Extremities: Left hip pain, a little bit of swelling. She has a new wound that is covered with a dressing on the left hip and medial thigh. Neurological: The patient is alert and oriented x3. No focal deficits. LABORATORY: WBC 6.9, hemoglobin 13.5, hematocrit. 43.4, platelet 281,000. Sodium 143, potassium 3.8, chloride 103, bicarbonate 31, BUN 20, creatinine 0.8, glucose 104, calcium 9.3. ASSESSMENT AND PLAN: 1. Left displaced basicervical femoral neck fracture status post left trochanteric fixation nail placement. She went to the OR today for that procedure. She is feeling good. Her wound looks clean, dry, and intact. She is moving her toes. I do not think she has any vascular lesion or neurological problem at this moment. She is completely awake, alert, and oriented x3. She is able to keep a conversation with me. 2. Atrial fibrillation, stable, rate controlled. Cardiology department already evaluated this patient. 3. Sick sinus syndrome with previous permanent pacemaker. Aware. 4. History of previous syncope. No more syncopal episodes recently. We will continue to monitor. cc: Joey Steve MD
[2018-05-13] MEDS: NS 1,000 ML IV SCH (18:23)
[2018-05-13] MEDS: COLACE PO SCH (21:08)
[2018-05-13] MEDS: OXY IR PO PRN (21:08)
[2018-05-13] MEDS: PERIDEX MT SCH (21:09)
[2018-05-13] MEDS: KEFZOL 2 GM/D5W 2 GM/50 ML IVPB IV SCH (21:42)
[2018-05-14 06:01] LABS: BASO# 0.01 X1000 (0.0-0.2); BASO% 0.1 % (0.0-0.8); HEMATOCRIT 38.6 % (37.0-47.0); HEMOGLOBIN 12.9 g/dL (12.0-16.0); LYMPH# 0.85 X1000 (1.2-3.4); LYMPH% 9.1 % (20.5-51.1); MCH 34.2 PG (27-31); MCHC 33.4 g/dL (33-37); MCV 102.4 FL (81-99); MONO% 10.7 % (1.7-9.3); MPV 9.5 FL (7.4-10.4); NEUT# 7.45 X1000 (1.4-6.5); NEUT% 80.1 % (42.2-75.2); PLT 238 X1000 (130-400); RBC 3.77 XMIL (4.2-5.4); RDW 13.4 % (11.5-14.5); WBC 9.31 X1000 (4.8-10.8)
[2018-05-14 06:19] LABS: AGAP 11; BUN 16 mg/dL (8-22); CALCIUM 8.8 mg/dL (8.8-10.2); CHLORIDE 104 mmol/L (98-107); COSMO 282; CREATININE 0.7 mg/dL (0.5-0.9); ESTIMATED GFR > 60; GLUCOSE 132 mg/dL (70-104); POTASSIUM 4.2 mmol/L (3.5-5.1); SODIUM 140 mmol/L (136-145); TCO2 25 mmol/L (25-35)
[2018-05-14] MEDS: KEFZOL 2 GM/D5W 2 GM/50 ML IVPB IV SCH (06:30)
[2018-05-14] MEDS: LOVENOX SUBQ SCH (06:57)
[2018-05-14] MEDS: OXY IR PO PRN (06:57)
--- NOTE | 2018-05-14 07:59 | PROGRESS NOTE ---
DATE: 05/14/2018 SUBJECTIVE: Ms. Manzo has no complaints today. She is postoperative day 1 from a left TFN. She states it is feeling much better. She is anxious to try and ambulate today. OBJECTIVE: Her vital signs are stable. She is afebrile. Her hematocrit is 38.6%. Her hemoglobin is 12.9. Her dressings are clean, dry, intact. Her leg is neurovascularly intact. She has no sign of infection or deep venous thrombosis. ASSESSMENT: Postoperative day 1 from a left TFN. PLAN: She will begin working with therapy today and ambulating. Hopefully, she can go to rehab later in the week. cc: Benji Jean Baptiste MD [facility]
[2018-05-14] MEDS: FERROUS SULFATE PO SCH ×2 (08:36→08:37)
[2018-05-14] MEDS: CORDARONE PO SCH (08:36)
[2018-05-14] MEDS: MIRALAX PO SCH ×2 (08:36→22:16)
[2018-05-14] MEDS: VITAMIN D PO SCH (08:36)
[2018-05-14] MEDS: PERIDEX MT SCH ×2 (08:37→22:16)
[2018-05-14] MEDS: NS 1,000 ML IV SCH ×4 (11:32→22:33)
--- NOTE | 2018-05-14 14:27 | PROGRESS NOTE ---
DATE: 05/14/2018 SUBJECTIVE: No acute events overnight. She is status post left trochanteric fixation nail placement, postoperative day #1. She presented with a left displaced basicervical femoral neck fracture. She is complaining a little bit of pain in that area. She is feeling good. The plan is to send this patient to a rehabilitation center. OBJECTIVE: Vital Signs: Temperature 98.4 degrees, pulse 61, respiratory rate 18, blood pressure 134/50, oxygen saturation 93 on room air. HEENT: Head normocephalic, no trauma. PERRLA. Neck: Supple. No JVD. No masses. Central trachea. Chest: Clear to auscultation. No wheezing. No rales. Abdomen: Soft, nontender, nondistended. No hepatosplenomegaly. Extremities: Left hip pain, a little bit of swelling. She has a new wound that is covered with a dressing that looks clean. Neurological: Alert and oriented x3. No focal deficits. LABORATORY: WBC 9.3, hemoglobin 12.9, hematocrit 38.6, platelets 238,000. Sodium 140, potassium 4.2, chloride 104, bicarbonate 25, BUN 16, creatinine 0.7, glucose 132, calcium 8.8. ASSESSMENT AND PLAN: 1. Left displaced basicervical femoral neck fracture status post left trochanteric fixation nail placement postoperative day #1. She is feeling better. Physical Therapy on board. The plan is to send this patient to a rehabilitation center. 2. Atrial fibrillation, stable, rate controlled. Cardiology department already evaluated this patient. 3. Sick sinus syndrome with previous permanent pacemaker. Aware. 4. History of previous syncope. No syncopal episodes during this hospitalization. We will monitor. cc: Joey Steve MD
--- NOTE | 2018-05-14 14:47 | PROGRESS NOTE ---
DATE: 05/14/2018 SUBJECTIVE: Patient continues without chest discomfort or dyspnea. She is status post left trochanteric fixation nail placement yesterday. She has gotten up with the help of physical therapy already today. OBJECTIVE: Blood pressure 130/50, heart rate 61, oxygen saturation 93-94%. There is no significant jugular venous distention. Chest is clear to auscultation. Cardiac examination reveals a regular rate and rhythm without appreciable murmur or gallop. There is no evidence of peripheral edema. Laboratory data includes a white blood cell count of 9.31, hematocrit 38.6, hemoglobin 12.9, platelet count 238,000. Sodium 140, potassium 4.2, chloride 104, carbon dioxide 25, BUN 16, creatinine 0.7, glucose 132. IMPRESSION: 1. Status post left hip fracture without fall. She is now status post surgical repair. 2. Sinus node dysfunction with history of previous permanent pacemaker. 3. Paroxysmal atrial fibrillation. Patient continues without recurrence on amiodarone. 4. Obesity. 5. Systolic murmur. Recent echocardiography demonstrates mild mitral regurgitation, mild tricuspid regurgitation, and mild aortic regurgitation but no significant aortic stenosis. Left ventricular ejection fraction is normal. RECOMMENDATIONS: 1. Continue amiodarone 200 mg p.o. daily. 2. Resume Xarelto when acceptable from a surgical standpoint. 3. Given patient's clinical stability from a cardiovascular standpoint, I will see her further on an inpatient basis as needed. cc: Yakov Beavers MD
[2018-05-14] MEDS: COLACE PO SCH (22:16)
[2018-05-15] MEDS: NS 1,000 ML IV SCH (05:09)
[2018-05-15 05:45] LABS: HEMATOCRIT 34.9 % (37.0-47.0); HEMOGLOBIN 11.7 g/dL (12.0-16.0)
[2018-05-15] MEDS: LOVENOX SUBQ SCH (07:57)
--- NOTE | 2018-05-15 07:59 | PROGRESS NOTE ---
DATE: 05/15/2018 SUBJECTIVE: Ms. Manzo is an 83-year-old female who is postoperative day 2 from a left basicervical femoral neck fracture with TFN placement. She has no complaints today. She was able to walk with therapy yesterday. OBJECTIVE: She is a well-developed, well-nourished female. She is alert, oriented, and cooperative exam. Her wounds are clean, dry, intact without sign of infection. Her leg is neurovascularly intact. She walked, got up and sat in the chair yesterday with physical therapy. Her vital signs are stable she is afebrile. LABS: Her hematocrit today is 34.5, her hemoglobin is 11.7. ASSESSMENT: Stable left basicervical femoral neck fracture. PLAN: She can be transferred to rehab when a bed is available and she is cleared medically. There is nothing further for me to add from an orthopedic standpoint. I am happy to assist if anything is needed in the future. Otherwise, I am going to be available as needed. cc: Benji Jean Baptiste MD
[2018-05-15] MEDS: OXY IR PO PRN ×2 (08:33→15:06)
[2018-05-15] MEDS: MIRALAX PO SCH (08:33)
[2018-05-15] MEDS: CORDARONE PO SCH (08:34)
[2018-05-15] MEDS: VITAMIN D PO SCH (08:34)
[2018-05-15] MEDS: PERIDEX MT SCH (08:34)
[2018-05-15] MEDS: FERROUS SULFATE PO SCH ×2 (08:34→08:37)
[2018-05-15] MEDS: MORPHINE IV PRN (11:51)
--- NOTE | 2018-05-15 11:59 | DISCHARGE SUMMARY ---
ADMISSION DATE: 05/12/2018 DISCHARGE DATE: 05/15/2018 ADMISSION DIAGNOSIS: 1. Left femoral neck fracture. 2. Atrial fibrillation. 3. Diastolic heart failure. 4. Osteoporosis. DISCHARGE DIAGNOSIS: 1. Left femoral neck fracture. 2. Atrial fibrillation. 3. Diastolic heart failure. 4. Osteoporosis. CONSULTATIONS: Yakov Beavers MD with Cardiology, and Benji Jean Baptiste MD with Orthopedics. DIAGNOSTIC PROCEDURES AND FINDINGS: Femur x-ray 05/12/2018 shows left femoral neck fracture. Hip/pelvis x-ray 05/12/2018 shows left femoral neck fracture. Chest x-ray 05/12/2018 shows cardiomegaly. Echocardiogram 05/12/2018: EF 60% to 65%, technically suboptimal study, mild AR, mild TR, no pericardial effusion. EKG 05/13/2018: Atrial paced rhythm. HOSPITAL COURSE: Ms. Manzo is an 83-year-old female with a history of PAF and pacemaker, who came in with left hip pain, which essentially happened spontaneously. She was walking in her kitchen and felt a small "snap" in her left hip at which time she had to sit down and she was unable to get up. Eventually, family came to check on her and when they found her they called 911 and she was brought to the ER and found to have a left femoral neck fracture. She has a history of paroxysmal atrial fibrillation and had cardiomegaly on chest x-ray so we consulted Cardiology for preoperative risk stratification. Dr. Beavers saw the patient and deemed her acceptable cardiovascular risk for elective repair of left hip fracture under general anesthesia. Dr. Jean Baptiste was consulted and performed a left trochanteric fixation with nail placement on 05/13/2018. Prior to that, she had an echocardiogram, which was done and found to be really unremarkable. Her medications were continued except for the Xarelto. Operative procedure and her overall admission have been unremarkable, physical therapy and social work have seen the patient and she is now stable for discharge to [facility]. DISCHARGE MEDICATIONS: 1. Amiodarone 200 mg daily. 2. Vitamin D3 2000 units p.o. daily. 3. Vitamin B12 3000 mcg daily. 4. Iron sulfate 325 mg daily. 5. MiraLAX 17 g daily. 6. Xarelto 20 mg daily. 7. Altn-sy-ogejeagt 30 mL p.o. daily as needed. 8. Acetaminophen 650 mg p.o. as needed. 9. Colace 200 mg p.o. at bedtime. 10.Oxycodone IR 5 mg p.o. q.3 hours p.r.n. pain, #20 tablets, no refills. LABS ON DAY OF DISCHARGE: Hemoglobin 11.7, hematocrit 34.9. DISCHARGE DIET: Heart healthy. DISCHARGE ACTIVITY: Resume activity as tolerated [facility]. DISPOSITION AND OTHER DISCHARGE INSTRUCTIONS: 1. The patient is discharged to [facility]. 2. She is to follow up with Dr. 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 3. She is to return to ER or call 911 for any worsening complaints or concerns. All questions answered. DISCHARGE TIME: Greater than 35 minutes. Dictated by MYRA Garcia for Joey Steve MD cc: MYRA Garcia MD Richard S. Sharp, MD William D. Denney, MD
[2018-05-15 16:05] VITALS: BP 132/70
--- NOTE | 2018-05-17 19:37 | PROVIDER DOCUMENTATION ---
This chart was entered by Gil Silvestre Scribe, acting as scribe for Iván Puckett MD. HPI-Musculoskeletal Pain/Inj - GENERAL Chief Complaint: Hip Injury Stated Complaint: hip fracture Time Seen by Provider: 05/12/18 16:31 Source: patient - HX OF PRESENT ILLNESS-MUSKULOSKELTAL Nature of Presenting Problem: Pt is a 83 y/o F walkings with her walker when her left foot caught and pt reports a pop in her left foot. Sh c/o of pain from her hip to her knee. Pt denies falling. Quality of Pain: reports: aching Severity in ED: severe Onset/Duration: just prior to arrival Timing: still present Modifying Factors: improves with: nothing Any recent injury?: No Locality of Occurance: Home Similar Symptoms Previously?: No Recently seen or treated by another doctor?: No Review of Systems - Adult - REVIEW OF SYSTEMS - ADULT Constitutional: denies: chills, fever Eyes: reports: no symptoms reported Ears, Nose, Mouth & Throat: reports: no symptoms reported Cardiovascular: reports: no symptoms reported Respiratory: denies: cough, shortness of breath Gastrointestinal: denies: nausea, vomiting Genitourinary: denies: dysuria, discharge Musculoskeletal: reports: bone pain, joint pain. denies: back pain, neck pain Integumentary: reports: no symptoms reported Neurological: denies: dizziness/vertigo, headache/migraines Psychiatric: reports: no symptoms reported Endocrine: reports: no symptoms reported Hematologic/Lymphatic: reports: no symptoms reported Allergic/Immunologic: reports: no symptoms reported All Other Systems: Reviewed and Negative Past History - Adult - PAST MEDICAL HISTORY-ADULT Review of Records: reports: Old Records Reviewed, Nursing Assessment Review, Medications Reviewed Major Childhood Illnesses: reports: denies history Cardiovascular: reports: A-Fib, HTN, hyperlipidemia Musculoskeletal: reports: osteoporosis - PRIOR SURGERIES/PROCEDURES Surgical/Procedure History: reports: orthopedic (extremity), joint replacement - IMMUNIZATION STATUS Childhood Immunizations: See Nurse Assessment Flu Vaccine: See Nurse Assessment - FAMILY HISTORY Family History: reviewed, not pertinent - SOCIAL HISTORY Smoking: non-smoker Living Situation: family Physical Exam-Injury Related - Physical Exam-Injury Related Initial Vital Signs Reviewed: Yes General Appearance: appears well, alert, no apparent distress Eyes: PERRL/EOMI, pink conjunctivae Head, Ears, Nose, Mouth & Throat: moist mucous membranes, normal ENT inspection, pharynx normal Neck: non-tender, full range of motion, supple, normal inspection Respiratory: lungs clear, normal breath sounds, no pleuratic chest pain, no respiratory distress, no accessory muscle use Cardiovascular: normal peripheral pulses, regular rate, rhythm Abdominal Exam: non tender, soft Back Exam: normal inspection, no CVA tenderness, no vertebral tenderness Extremity: tenderness. negative: normal range of motion, normal gait, normal inspection (left leg externally rotated and 2 inches short than right) Integumentary: normal color, warm/dry Psych/Mental Status: normal mood/affect, normal thought content, normal thought process, oriented x 3 Progress - PLAN OF CARE/RESULTS Progress/Plan/Lab Results: Orders Category Date Time Status Admit - [facility] Routine AdmDCTranf 05/12/18 20:17 Active Intake and Output-Strict ORDERED Care 05/12/18 20:17 Completed Vital Signs Order Q 8-HR ASSESS Care 05/12/18 20:17 Completed Physician/Provider Consults Routine Cons 05/12/18 20:17 Ordered Heart Healthy Diet Diet 05/12/18 18:33 Completed CHEST-1 VIEW [RAD] Stat Exams 05/12/18 17:05 Completed FEMUR MIN 2 VIEWS LEFT [RAD] Stat Exams 05/12/18 16:22 Completed XRAY PELVIS W/HIP 2-3VW LT [RAD] Stat Exams 05/12/18 16:22 Completed BASIC METABOLIC PANEL [CHEM] Routine Lab 05/13/18 05:40 Completed CBC WITH DIFF [HEME] Routine Lab 05/13/18 05:40 Completed CBC WITH ELECTRONIC DIFF [HEME] Stat Lab 05/12/18 17:42 Completed COMPREHENSIVE METABOLIC PANEL [CHEM] Stat Lab 05/12/18 17:42 Completed FOLATE Routine Lab 05/13/18 05:40 Completed PROTIME WITH INR [COAG] Stat Lab 05/12/18 17:42 Completed PTT [COAG] Stat Lab 05/12/18 17:42 Completed TSH Routine Lab 05/13/18 05:40 Completed TYPE & SCREEN [BBK] Routine Lab 05/12/18 17:42 Completed UA NIMS W/REFLEX CULT [URINALYSIS] Stat Lab 05/12/18 17:50 Completed URINE MANUAL MICROSCOPIC [URINALYSIS] Stat Lab 05/12/18 17:50 Completed VITAMIN B12 Routine Lab 05/13/18 05:40 Completed 0.9% Sodium Chloride Inj [Ns] 1,000 ml Med 05/12/18 20:17 Discontinued IV 30 mls/hr Acetaminophen [Tylenol] Med 05/12/18 20:17 Discontinued 650 mg PO Q6H PRN PRN Amiodarone [Cordarone] Med 05/13/18 09:00 Discontinued 200 mg PO DAILY Cholecalciferol (Vit D3) [Vitamin D] Med 05/13/18 09:00 Discontinued 2,000 unit PO DAILY Ferrous Sulfate Med 05/13/18 09:00 Discontinued 325 mg PO DAILY Morphine Med 05/12/18 20:17 Discontinued 2 mg IV Q3H PRN PRN Morphine Med 05/12/18 16:47 Discontinued 4 mg IV NOW ONE Ondansetron [Zofran] Med 05/12/18 16:47 Discontinued 4 mg IM NOW ONE Oxycodone I.r. [Oxy Ir] Med 05/12/18 20:17 Discontinued 5 mg PO Q3H PRN PRN Polyethylene Glycol 3350 [Miralax] Med 05/12/18 21:00 Discontinued 17 gm PO BID Telemetry [OM.EQ] Routine Oth 05/12/18 20:17 Active EKG [EKG] Routine Ther 05/13/18 08:00 Draft Transfer/Admit Order [TRANSFER] Routine Transfer 05/12/18 19:21 Completed A/P Fracture of Left femoral neck, will admit for surgery, vitals stable. Result Diagrams: 05/15/18 05:30 05/14/18 05:34 - XRAY 1 XRAY: Left XRAY Study: Hip Impression: Abnormal ([facility] [address], [address], [place] [address] Department of Imaging Patient: ROSIE ALVARADOADM Date: 05/12/18MR#: [id number] : 1935DM Status: REG ERAcct#: [id number] Age/Sex: 83/FRoom/Bed: Loc: ED Ordering Physician: Iván Puckett MD Family Physician: Carine Martinez RN Reason for Procedure: injury Signed EXAM: XRAY PELVIS W/HIP 2-3VW LT HISTORY: injury TECHNIQUE: Pelvis and left hip, five views COMPARISON: None. FINDINGS: There is a fracture to the left femoral neck extending toward the greater trochanter. The fracture does not involve the greater trochanter. The femoral head remains in the acetabulum. The femoral shaft is rotated and superiorly placed. IMPRESSION: Left femoral neck fracture. Electronically signed by Rafa Garrison 05/12/2018 5:45 PM 05/12/18 1742 Interpreting Physician: Rafa Garrison MD Dictated Date/Time: 05/12/18 2591 cc: Iván Puckett MD; Carine Martinez) 2 XRAY Study: Chest Impression: Abnormal ([facility] [address] , [address], [place] [address] Department of Imaging Patient: ROSIE ALVARADOADM Date: 05/12/18#: [id number] : 1935DM Status: [facility] ERAcct#: [id number] Age/Sex: 83/FRoom/Bed: Loc: ED Ordering Physician: Iván Puckett MD Family Physician: Carine Martinez, RN Reason for Procedure: possible hip fracture Signed EXAM: CHEST-1 VIEW HISTORY: possible hip fracture TECHNIQUE: Chest single view COMPARISON: 04/08/2017 FINDINGS: The lungs are well expanded. The heart is enlarged. There is a left-sided pacemaker. The vessels are not distended. There are no infiltrates. No effusion identified. Mild scoliosis. IMPRESSION: Cardiomegaly Electronically signed by Rafa Garrison 05/12/2018 5:42 PM 05/12/181741 Interpreting Physician: Rafa Garrison MD Dictated Date/Time: 05/12/181741 cc: Iván Puckett MD; Carine Martinez) Departure - Departure Date of Disposition Decision: 05/12/18 Time of Disposition Decision: 20:52 DIAGNOSIS: Femoral neck fracture Disposition: ADMITTED INPATIENT 09 Certified Medical Emergency: Emergent Condition: Stable - Critical Care Note This patient required my direct & personal management of CC.: No Attestation - Physician/ RASHID Attestation Patient care was provided by Advanced Practice Provider:: No The physician spent face to face time with patient:: Yes Advanced Practice Provider documentation review:: Supervising physician onsite and consulted in the evaluation and care of this patient. The physician did have a face to face encounter with the patient. This chart was documented by the indicated scribe, (Gil Silvestre Scribe) and accurately reflects the services I performed and decisions made by me, Iván Puckett MD, as attested by the provider's signature.
== END 2018-05-15 16:16 | DRG 481 ==
LOC: SUPCPDRO → ED 16:18 → SUATTDRO 19:53 → 4N 19:53
PROVIDERS: ATTEND Internal Medicine
CPT/HCPCS: 51702; 71010; 71045; 73502; 73552; 76000; 80048; 80053; 81001; 82607; 82746; 83880; 84443; 85014; 85018; 85025; 85610; 85730; 86850; 86900; 86901; 90686; 93005; 93010; 93306; 94761; 94799; 96372; 96374; 97110; 97116; 97162; 97530; 99285; A9270; J0690; J1100; J1650; J2175; J2270; J2405; J3010; J7030

== ENCOUNTER 2018-08-13 10:13 | Inpatient (IN) ==
[2018-08-13] MEDS ORDERED: ZOFRAN IV ONE (10:56)
[2018-08-13] MEDS ORDERED: NS 500 ML IV ONE ×2 (10:56→13:12)
[2018-08-13 11:19] LABS: BASO# 0.01 X1000 (0.0-0.2); BASO% 0.1 % (0.0-0.8); EOS# 0.03 X1000 (0.0-0.7); EOS% 0.2 % (0.0-10.0); HEMATOCRIT 39.4 % (37.0-47.0); HEMOGLOBIN 12.9 g/dL (12.0-16.0); IMM GRAN% 0.6 % (0.0-0.5); LYMPH# 0.95 X1000 (1.2-3.4); MCH 30.4 PG (27-31); MCHC 32.7 g/dL (33-37); MCV 92.9 FL (81-99); MONO# 1.06 X1000 (0.11-0.59); MONO% 6.7 % (1.7-9.3); MPV 11.8 FL (7.4-10.4); NEUT# 13.57 X1000 (1.4-6.5); NEUT% 86.4 % (42.2-75.2); PLT 138 X1000 (130-400); RBC 4.24 XMIL (4.2-5.4); RDW 15.9 % (11.5-14.5); WBC 15.72 X1000 (4.8-10.8)
[2018-08-13] MEDS ORDERED: MORPHINE IV ONE (11:23)
[2018-08-13 11:28] LABS: ALB/GLOB RATIO 0.6; ALBUMIN 2.5 g/dL (3.5-5.0); CALCIUM 9.3 mg/dL (8.8-10.2); CREATININE 1.3 mg/dL (0.5-0.9); POTASSIUM 4.1 mmol/L (3.5-5.1); TOTAL BILIRUBIN 0.63 mg/dL (0.20-1.00); TOTAL PROTEIN 6.9 g/dL (6.3-8.3)
[2018-08-13 11:33] LABS: BANDS 3 % (0-1); LYMPHS 4 % (21-51); MONO 5 % (1-9); SEGS 87 % (42-75)
--- NOTE | 2018-08-13 12:01 | Diag Imaging Result Doc PS360 ---
EXAM: LOWER LEG-LEFT HISTORY: pain TECHNIQUE: Left tibia and fibula, three views COMPARISON: None. FINDINGS: No fracture. No dislocation. Prior orthopedic replacement of the knee. The bones are osteopenic. Prominent atherosclerosis. IMPRESSION: No acute bony injury. Electronically signed by Rafa Garrison 08/13/2018 11:59 AM
--- NOTE | 2018-08-13 12:03 | Diag Imaging Result Doc PS360 ---
EXAM: FEMUR MIN 2 VIEWS LEFT HISTORY: pain TECHNIQUE: Left femur, five views COMPARISON: 05/12/2018 FINDINGS: There has been fixation of the previously described left hip fracture. There is incomplete union. The femoral head is not dislocated. The bones are osteopenic. Prior orthopedic replacement of the knee. IMPRESSION: Incomplete union of the recent fixation of the left hip fracture. Electronically signed by Rafa Garrison 08/13/2018 12:01 PM
--- NOTE | 2018-08-13 12:04 | Diag Imaging Result Doc PS360 ---
EXAM: KUB ABDOMEN HISTORY: pain TECHNIQUE: Abdomen single view COMPARISON: None. FINDINGS: No bowel obstruction. No organomegaly. No foreign body. No abnormal calcifications. IMPRESSION: No acute abnormality. Electronically signed by Rafa Garrison 08/13/2018 12:02 PM
[2018-08-13 12:32] LABS: URINE SOURCE CLEAN CATCH
[2018-08-13 12:35] LABS: BILIRUBIN URINE NEGATIVE (NEGATIVE); BLOOD URINE MODERATE (NEGATIVE); COLOR YELLOW; GLUCOSE URINE NEGATIVE (NEGATIVE); KETONE URINE NEGATIVE (NEGATIVE); LEUKOCYTES URINE LARGE (NEGATIVE); NITRITE URINE NEGATIVE (NEGATIVE); PROTEIN URINE 100 mg/dL (NEGATIVE); SP GRAVITY URINE 1.014; TURBIDITY URINE HAZY (CLEAR); UROBILINOGEN URINE NORMAL (NORMAL)
[2018-08-13 12:37] LABS: UR EPITHELIAL CELLS <10 /HPF (<10); URINE BACTERIA 4+ /HPF; URINE RBC <10 /HPF (<10); URINE WBC TNTC /HPF (<10)
--- NOTE | 2018-08-13 12:51 | PROVIDER DOCUMENTATION ---
This chart was entered by Mary Adams Scribe, acting as scribe for Supriya Hickey MD. HPI-General Adult - General Chief Complaint: General Adult Stated Complaint: N/V/LEG PAIN Time Seen by Provider: 08/13/18 10:36 Source: patient Allergies/Adverse Reactions: Patient Allergies Allergy/AdvReac Type Severity Reaction Status Date / Time No Known Allergies Allergy Verified 11/08/17 00:30 Home Medications: Home Medication List Medication Instructions Recorded Confirmed Last Taken Type Amiodarone [Cordarone] 200 mg PO DAILY 07/30/13 08/13/18 03/10/17 07:00 History Cholecalciferol (Vitamin D3) 2,000 unit PO DAILY 10/21/16 08/13/18 03/09/17 0 7:00 History [D3-2000] Cyanocobalamin (Vitamin B-12) 3,000 mcg PO DAILY 10/21/16 08/13/18 03/09/17 12:00 History [B-12] Ferrous Sulfate [Iron] 325 mg PO DAILY 02/14/17 08/13/18 02/13/17 07:00 History Polyethylene Glycol 3350 [Miralax] 17 gm PO DAILY #14 powder, packet 03/21/17 08/13/18 Unknown Rx Rivaroxaban [Xarelto] 20 mg PO DAILY 11/08/17 08/13/18 Unknown History Acetaminophen [Tylenol] 650 mg PO Q6H PRN PRN tab 05/15/18 08/13/18 Unknown Rx Magnesium Hydroxide [Milk of 30 ml PO DAILY PRN PRN udc 05/15/18 08/13/18 Unknown Rx Magnesia] Oxycodone I.r. [Oxy Ir] 5 mg PO Q3H PRN PRN #20 tab 05/15/18 08/13/18 Unknown Rx Docusate Sodium [Colace] 100 mg PO QHS 08/13/18 08/13/18 Unknown History Furosemide [Lasix] 40 mg PO DAILY 08/13/18 08/13/18 Unknown History - History of Present Illness -Gen Adult Nature of Presenting Problems: Patient is a 83 year old female who presents to the ED via EMS with nausea and vomiting that has been present for 5 days. Denies abdominal pain. 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 Bridges last year. Patient's son states patient was recently diagnosed with h. pylori but did not receive treatment. Denies chest pain and shortness of breath. Location of Pain/Injury: reports: none Pain Radiation: reports: no radiation Quality of Pain: reports: none Severity: reports: mild Onset/Duration: reports: 5 days ago Timing: reports: still present Context/Activities at Onset: reports: light activity Associated Symptoms: reports: nausea, vomiting Similar Symptoms Previously?: Yes Recently seen or treated by another doctor?: Yes Review of Systems - Adult - REVIEW OF SYSTEMS - ADULT Constitutional: reports: no symptoms reported. denies: chills, fever, fatique Eyes: reports: no symptoms reported Ears, Nose, Mouth & Throat: reports: no symptoms reported Cardiovascular: reports: no symptoms reported Respiratory: reports: no symptoms reported Gastrointestinal: reports: see HPI, nausea, vomiting. denies: abdominal pain, diarrhea Genitourinary: reports: no symptoms reported Musculoskeletal: reports: see HPI, other (left leg pain). denies: back pain, neck pain Integumentary: reports: no symptoms reported Neurological: reports: no symptoms reported Psychiatric: reports: no symptoms reported Endocrine: reports: no symptoms reported Hematologic/Lymphatic: reports: no symptoms reported Allergic/Immunologic: reports: no symptoms reported All Other Systems: Reviewed and Negative Past History - Adult - PAST MEDICAL HISTORY-ADULT Review of Records: reports: Old Records Reviewed, Nursing Assessment Review, Medications Reviewed, Social history reviewed & non-contributory. Major Childhood Illnesses: reports: denies history Cardiovascular: reports: A-Fib, CHF, HTN, hyperlipidemia, pacemaker Respiratory: reports: COPD Gastrointestinal: reports: denies history Obstetrical/Gynecological: reports: denies history Genitourinary: reports: denies history Musculoskeletal: reports: osteoporosis Neurological: reports: denies history Endocrine/Immune: reports: denies history Other Conditions: reports: denies history - PRIOR SURGERIES/PROCEDURES Surgical/Procedure History: reports: orthopedic (extremity), joint replacement - IMMUNIZATION STATUS Childhood Immunizations: See Nurse Assessment Flu Vaccine: See Nurse Assessment - FAMILY HISTORY Family History: reviewed, not pertinent - SOCIAL HISTORY Smoking: denies Substance Use: denies Living Situation: care facility (rehab) Physical Exam-General - PHYSICAL EXAM-ADULT Initial Vital Signs Reviewed: Yes - CONSTITUTIONAL General Appearance: alert, no apparent distress. negative: lethargic, slow to respond - HEAD, EARS, NOSE, MOUTH & THROAT HENMT: normocephalic/atraumatic, other (dry mucous membranes). negative: angioedema, hearing deficit - RESPIRATORY Respiratory: chest non-tender, lungs clear, normal breath sounds. negative: crackles, rhonchi, stridor - CARDIOVASCULAR Cardiovascular: normal peripheral pulses, regular rate, rhythm. negative: tachycardia, systolic murmur - GASTROINTESTINAL (ABDOMEN) Abdominal Exam: normal bowel sounds, distended, tenderness (diffuse). negative: guarding, rebound - MUSCULOSKELETAL Extremity: swelling (left thigh and left knee), tenderness (left thigh and left knee). negative: deformity, erythema - SKIN Integumentary: normal color, normal turgor, warm/dry. negative: cyanosis, ecchymosis, erythema, jaundice, rash - NEUROLOGIC Neurologic: grossly normal. negative: aphasia, facial droop - PSYCHIATRIC Psych/Mental Status: normal mood/affect, oriented x 3. negative: anxious, paranoid Progress - PLAN OF CARE/RESULTS Progress/Plan/Lab Results: Vital Signs - 8 hr 08/13/18 10:27 Temperature 98.2 F Pulse Rate 59 L Respiratory Rate 18 Blood Pressure 99/58 O2 Sat by Pulse Oximetry 85 L Orders Category Date Time Status FEMUR MIN 2 VIEWS LEFT [RAD] Stat Exams 08/13/18 10:51 Ordered LOWER LEG-LEFT [RAD] Stat Exams 08/13/18 10:52 Ordered Result Diagrams: 08/13/18 10:25 08/13/18 10:25 - XRAY 1 XRAY: Left XRAY Study: Femur Impression: See EMR Report ( EXAM: FEMUR MIN 2 VIEWS LEFT HISTORY: pain TECHNIQUE: Left femur, five views COMPARISON: 05/12/2018 FINDINGS: There has been fixation of the previously described left hip fracture. There is incomplete union. The femoral head is not dislocated. The bones are osteopenic. Prior orthopedic replacement of the knee. IMPRESSION: Incomplete union of the recent fixation of the left hip fracture. Electronically signed by Rafa Garrison 08/13/2018 12:01 PM 08/13/18 1201 Interpreting Physician: Rafa Garrison MD Dictated Date/Time: 08/13/18 1931 cc: Supriya Hickey MD; None,PCP) 2 XRAY: Left XRAY Study: Tibia/Fibula Impression: See EMR Report ( EXAM: LOWER LEG-LEFT HISTORY: pain TECHNIQUE: Left tibia and fibula, three views COMPARISON: None. FINDINGS: No fracture. No dislocation. Prior orthopedic replacement of the knee. The bones are osteopenic. Prominent atherosclerosis. IMPRESSION: No acute bony injury. Electronically signed by Rafa Garrison 08/13/2018 11:59 AM 08/13/18 1159 Interpreting Physician: Rafa Garrison MD Dictated Date/Time: 08/13/18 1158 cc: Supriya Hickey MD; None,PCP) 3 XRAY Study: Abdomen Impression: See EMR Report ( EXAM: KUB ABDOMEN HISTORY: pain TECHNIQUE: Abdomen single view COMPARISON: None. FINDINGS: No bowel obstruction. No organomegaly. No foreign body. No abnormal calcifications. IMPRESSION: No acute abnormality. Electronically signed by Rafa Garrison 08/13/2018 12:02 PM 08/13/18 1202 Interpreting Physician: Rafa Garrison MD Dictated Date/Time: 08/13/18 1201 cc: Supriya Hickey MD; None,PCP) 4 XRAY Study: Chest Impression: See EMR Report ( EXAM: CHEST-PORTABLE HISTORY: low O2 sat TECHNIQUE: Chest single view COMPARISON: 05/12/2018 FINDINGS: The lungs are well expanded. The heart is mildly enlarged and there is pulmonary edema. No consolidation. No pleural effusions identified. There is a left-sided pacemaker. IMPRESSION: Cardiomegaly with pulmonary edema. Electronically signed by Rafa Garrison 08/13/2018 1:31 PM 08/13/18 1331 Interpreting Physician: Rafa Garrison MD Dictated Date/Time: 08/13/18 1331 cc: Supriya Hickey MD; None,PCP) - CT/MRI 1 CT Study: Abdomen, Pelvis Impression: See EMR Report (Signed EXAM: CT ABDOMEN/PELVIS W/O CONTRAST INDICATION: abd pain TECHNIQUE: This exam was performed using automated exposure control, adjustment of mA or kV according to patient size, and/or use of iterative reconstruction technique. COMPARISON: 02/07/2017 FINDINGS: There are stable fibrotic changes at the lung bases. The gallbladder is distended and there are several hyperdense stones layering in the gallbladder lumen. No definite pericholecystic inflammatory changes appreciated. No biliary dilatation is identified. The liver, spleen, and pancreas are unremarkable. There is mild stable adrenal thickening, likely due to mild hyperplasia or underlying adenomas. There are several stable renal cysts bilaterally. There is bilateral nephrolithiasis and there is an 11 mm stone at the left UPJ with associated mild left hydronephrosis. The urinary bladder is distended and there is gas in the urinary bladder lumen. It is nonspecific. This may be from recent catheterization. Please correlate clinically. There is no urinary bladder wall thickening. The reproductive tract is grossly unremarkable as imaged. The appendix is normal. There is no focal bowel wall thickening or evidence of bowel obstruction. There is a tiny hiatal hernia. The remainder of the GI tract is essentially unremarkable. No free abdominal gas or free fluid is identified. There are medullary cirilo associated with both femurs. There is a helical nail associated with the left femoral neck bridging a fracture with little if any bony bridging. IMPRESSION: 1.Bilateral nephrolithiasis with an 11 mm obstruc ting stone at the left UPJ and associated mild left hydronephrosis. 2.Distended gallbladder with cholelithiasis but no definite surrounding inflammatory change. 3.Interval ORIF for a left femoral neck fracture with little if any bony bridging. Electronically signed by Sandeep Patel 08/13/2018 3:07 PM 08/13/18 1507 Interpreting Physician: Sandeep Patel MD Dictated Date/Time: 08/13/18 4177 cc: Supriya Hickey MD; None,PCP) - CONSULTS/PCP/HOSPITALIST Notification #1 *Consult/PCP/Hospitalist*: MYRA Bello for Hospitalist Time Discussed: 15:40 Reason/Comments: Dr. Hickey consulted with Eugenia about patient. Consult Disposition: Will see in ED, Admit #2 Consult: Dr. Mike Time Discussed: 15:50 Reason/Comments: Dr. Hickey consulted with Dr. Mike about patient. Consult Disposition: other (will consult on patient.) Departure - Departure Date of Disposition Decision: 08/13/18 Time of Disposition Decision: 15:46 DIAGNOSIS: Ureterolithiasis UTI (urinary tract infection) Qualifiers: Urinary tract infection type: site unspecified Hematuria presence: without emile turia Qualified Code(s): N39.0 - Urinary tract infection, site not specified Cholelithiasis Qualifiers: Cholelithiasis location: gallbladder Cholecystitis presence: without cholecystitis Biliary obstruction: without biliary obstruction Qualified Code(s): K80.20 - Calculus of gallbladder without cholecystitis without obstruction Disposition: ADMITTED INPATIENT 09 Certified Medical Emergency: Emergent Condition: Fair Referrals and Follow-Ups: Carine Martinez CRNP [NON-STAFF PROVIDER] - - Critical Care Note This patient required my direct & personal management of CC.: No Attestation - Physician/ RAHSID Attestation Patient care was provided by Advanced Practice Provider:: No The physician spent face to face time with patient:: Yes Advanced Practice Provider documentation review:: Supervising physician onsite and consulted in the evaluation and care of this patient. The physician did have a face to face encounter with the patient. This chart was documented by the indicated scribe, (Mary Adams Scribe) and accurately reflects the services I performed and decisions made by me, Supriya Hickey MD, as attested by the provider's signature.
[2018-08-13] MEDS ORDERED: ROCEPHIN 1 GM in NS 50 ML IV ONE (13:04)
--- NOTE | 2018-08-13 13:34 | Diag Imaging Result Doc PS360 ---
EXAM: CHEST-PORTABLE HISTORY: low O2 sat TECHNIQUE: Chest single view COMPARISON: 05/12/2018 FINDINGS: The lungs are well expanded. The heart is mildly enlarged and there is pulmonary edema. No consolidation. No pleural effusions identified. There is a left-sided pacemaker. IMPRESSION: Cardiomegaly with pulmonary edema. Electronically signed by Rafa Garrison 08/13/2018 1:31 PM
--- NOTE | 2018-08-13 15:10 | Diag Imaging Result Doc PS360 ---
EXAM: CT ABDOMEN/PELVIS W/O CONTRAST INDICATION: abd pain TECHNIQUE: This exam was performed using automated exposure control, adjustment of mA or kV according to patient size, and/or use of iterative reconstruction technique. COMPARISON: 02/07/2017 FINDINGS: There are stable fibrotic changes at the lung bases. The gallbladder is distended and there are several hyperdense stones layering in the gallbladder lumen. No definite pericholecystic inflammatory changes appreciated. No biliary dilatation is identified. The liver, spleen, and pancreas are unremarkable. There is mild stable adrenal thickening, likely due to mild hyperplasia or underlying adenomas. There are several stable renal cysts bilaterally. There is bilateral nephrolithiasis and there is an 11 mm stone at the left UPJ with associated mild left hydronephrosis. The urinary bladder is distended and there is gas in the urinary bladder lumen. It is nonspecific. This may be from recent catheterization. Please correlate clinically. There is no urinary bladder wall thickening. The reproductive tract is grossly unremarkable as imaged. The appendix is normal. There is no focal bowel wall thickening or evidence of bowel obstruction. There is a tiny hiatal hernia. The remainder of the GI tract is essentially unremarkable. No free abdominal gas or free fluid is identified. There are medullary cirilo associated with both femurs. There is a helical nail associated with the left femoral neck bridging a fracture with little if any bony bridging. IMPRESSION: 1.Bilateral nephrolithiasis with an 11 mm obstructing stone at the left UPJ and associated mild left hydronephrosis. 2.Distended gallbladder with cholelithiasis but no definite surrounding inflammatory change. 3.Interval ORIF for a left femoral neck fracture with little if any bony bridging. Electronically signed by Sandeep Patel 08/13/2018 3:07 PM
[2018-08-13 16:04] LABS: ALLEN TEST YES; BE 5.4 mmoll (-3.0-3.0); BLOOD TYPE ARTERIAL; HCO3-(ACT) 29.1 mmoll (20.0-26.0); METHB 1.4 % (0.0-1.5); MODALITY CANNULA; O2(CT) 16.3 mL/dL (15.0-23.0); O2HB 95.3 % (95.0-99.0); PCO2(98.6) 38 mmHg (35-45); PO2(98.6) 96 mmHg (60-100); SAMPLE BLOOD; SAO2 98.7 % (95.0-100.0); THB 12.1 g/dL (11.5-17.4); pH(98.6) 7.49 (7.35-7.45)
[2018-08-13] MEDS ORDERED: NS 1,000 ML IV SCH ×2 (16:30→17:14)
[2018-08-13] MEDS ORDERED: MILK OF MAGNESIA PO PRN (16:34)
--- NOTE | 2018-08-13 19:51 | CONSULTATION ---
DATE OF CONSULTATION: 08/13/2018 REFERRING: Consult health care provider, hospitalist. REASON FOR CONSULTATION: Obstructing ureteral stone. HISTORY OF PRESENT ILLNESS: 83-year-old female, without previous history of urolithiasis, who presented to the emergency room with a 4 week history of nausea, intermittent vomiting, chills, and left flank and groin pain. She reports the pain has worsened over the last week. The pain is sharp, intermittent, can be severe, radiates from her back to her groin. She denied associated gross hematuria or dysuria. She reported chills and subjective fevers. She attributed her nausea to possibly gallstones. She eventually presented to the emergency room and had CT scan done of abdomen and pelvis which revealed bilateral renal stones with 11 mm left ureteropelvic junction obstructing stone, and associated hydronephrosis. She continues to have discomfort. PAST MEDICAL HISTORY: 1. Duodenal cancer. 2. Coronary artery disease. 3. Atrial fibrillation. 4. Hyperlipidemia. 5. CHF. PAST SURGICAL HISTORY: 1. Duodenal cancer excision with primary closure and G-tube placement in 2018. 2. Left total knee arthroplasty. 3. Right femur ORIF repair. ALLERGIES: No known drug allergies. HOME MEDICATIONS: 1. Amiodarone. 2. Xarelto. 3. Oxycodone. 4. Lasix. 5. Colace. 6. Vitamin D. 7. Vitamin B12. 8. MiraLAX. SOCIAL HISTORY: Denies tobacco, alcohol, illicit drug use. She is an immigrant from [place]. FAMILY HISTORY: No reported malignancies. No urolithiasis. REVIEW OF SYSTEMS: Review of 12 systems negative except for the HPI. PHYSICAL EXAMINATION: Vital Signs: T 97.4 degrees, P 62, BP 122/77. General: Pleasant female who speaks relatively decent Emir[place]. She has a son who is attentive and speaks good Emirati at bedside. HEENT: Normocephalic, atraumatic. Cardiovascular: Regular rhythm at the time of examination. Pulmonary: Bilateral breath sounds. Abdomen: Mildly tender to palpation in the left upper quadrant. No guarding, no peritoneal signs. Back: No CVA tenderness. : Bladder is nontender to palpation. Dermatologic: No obvious skin rashes. Lymphatic: No cervical or groin lymphadenopathy. Neurologic: Alert and oriented x3. Psychiatric: Appropriate mood and affect. PERTINENT LABS: White cell count is 16,000. Creatinine is 1.3. Urinalysis is positive for leukocytes, bacteria, and red cells. PERTINENT IMAGES: CT abdomen and pelvis as per HPI. ASSESSMENT: An 83-year-old female with left ureteropelvic junction obstructing stone and urinary tract infection with chills and leukocytosis. I have discussed with the patient and her son that she would need to have her 11 mm stone addressed, as she is very unlikely to pass it. We discussed that she would benefit from cystoscopic examination with left ureteral stent placement, followed by treatment of her urinary tract infection, followed by then extracorporeal shockwave lithotripsy and stent removal on an outpatient basis. The patient and her son voiced understanding. We discussed the risks of cystoscopy and left ureteral stent placement including, but not limited to, bleeding, infection, injury to the bladder, injury to the ureter, inability to place a stent, and need for additional interventions were explained. She voiced understanding and wants to proceed. PLAN: 1. N.p.o. after midnight. 2. To operating room tomorrow for cystoscopy and left ureteral stent placement. 3. I agree with antibiotics. Thank you for the consultation. cc: Conrad Mike MD
--- NOTE | 2018-08-13 21:11 | HISTORY AND PHYSICAL ---
CHIEF COMPLAINT: It is left leg pain. HISTORY OF PRESENT ILLNESS: Mrs. Manzo is an 83-year-old Latin-Samoan female who presents to the hospital today with complaints of left leg and abdominal pain. She states that about 2 days ago she started having excruciating pain to her left leg and abdomen region. This pain was worse than any other pain she had ever experienced before. The patient states that about 3 months ago she had a left femur repair and she has been receiving physical therapy. She has been getting around walking and doing just fine up until about 2 days ago. She denies any burning when she urinates or difficulty urinating. The patient states she has been vomiting and she has been unable to eat for the past few days. She denies any chest pain. Upon assessment, abdomen is tender to palpation. The left hip area is tender to palpation. There is some mild edema noted to the bilateral lower extremities. The patient does have a notable murmur to the heart. LABORATORY FINDINGS: White blood cell count is elevated at 15.2. Creatinine is elevated at 1.3 with a BUN 34. ProBNP is elevated at 4257. Urinalysis shows moderate amount of blood with a large amount of leukocyte and white blood cell count is noted in the urine. A CT of the abdomen and pelvis was performed which showed bilateral nephrolithiasis with an 11 mm obstructing stone at the left UPJ and associated mild left hydronephrosis. It showed a distended gallbladder with cholelithiasis, but no definite surrounding inflammatory change. It showed the left femoral neck bridging a fracture with little if any bony bridging is noted. An x-ray of the femur is done. It shows an incomplete union of the recent fixation of the left hip fracture. PAST MEDICAL HISTORY: Atrial fibrillation, congestive heart failure, hypertension, osteoporosis, macular degeneration, vitamin D deficiency, sick sinus syndrome with permanent pacemaker, obesity, systolic murmur. PAST SURGICAL HISTORY: Left total knee arthroplasty, right hip arthroplasty, left hip arthroplasty, left wrist surgery, left duodenal resection for cancer of the duodenum, permanent pacemaker placement for sick sinus syndrome. FAMILY HISTORY: Notable for lung cancer and colon cancer in first-degree relatives. SOCIAL HISTORY: She lives alone. No alcohol or illicit drug abuse. ALLERGIES: No known drug allergies. MEDICATIONS: Tylenol 650 mg p.o. q.6 hours p.r.n., Lasix 40 mg p.o. daily, Xarelto 20 mg p.o. daily, amiodarone 200 mg p.o. daily, vitamin D3 2000 units p.o. daily, vitamin B12 3000 mcg p.o. daily, Colace 100 mg p.o. at bedtime, ferrous sulfate 325 mg p.o. daily, milk a magnesia 300 mL p.o. daily p.r.n., oxycodone IR 5 mg p.o. q.3 hours p.r.n., and MiraLAX 17 g p.o. daily. LABS AND DIAGNOSTICS: White blood cell count 15.72, hemoglobin 12.9, hematocrit 39.4, platelet count 138,000, pH 7.49, pCO2 38, PO2 96, bicarb 29.1, oxyhemoglobin 95.3. Sodium 135, potassium 4.1, chloride 95, carbon dioxide 32, anion gap 10, BUN 34, creatinine 1.3, GFR 39, glucose 138, calcium 9.3, total bilirubin 0.63. AST 6, ALT 5. ProBNP 4257. Urinalysis shows 100 of protein and moderate amount of blood, a large amount of leukocytes, white blood cell count, 4+ bacteria. CT of the abdomen and pelvis shows bilateral nephrolithiasis with an 11 mm obstructing stone at the left UPJ and associated mild left hydronephrosis, distended gallbladder with cholelithiasis, but no definite surrounding inflammatory change. Interval ORIF for a left femoral neck fracture with little, if any bony bridging. Chest x-ray did showed cardiomegaly with pulmonary edema. Abdominal x-ray showed no acute abnormality. Left lower leg extremity x-ray showed no acute bony injury. Femur x-ray to the left femur showed incomplete union of the recent fixation of the left hip fracture. REVIEW OF SYSTEMS: A 12-point review of systems was obtained and all are negative except what is stated above in HPI. PHYSICAL EXAMINATION: GENERAL: She is a pleasant elderly woman who is alert and oriented x3, lying in the ER stretcher in no acute distress except of pain to the left hip and abdomen area. HEENT: Atraumatic, normocephalic. Pupils equal, round, reactive. Mucous membranes are dry with no dentition. NECK: Supple. No lymphadenopathy. Trachea is midline. No JVD. CV: A systolic murmur is noted. No gallops or rubs. Regular rate and rhythm noted. RESPIRATIONS: Lungs are clear and equal chest excursion. Respirations are nonlabored with no accessory muscle usage. GI: Abdomen is soft and tender to palpation. Bowel sounds are present. Abdomen is nondistended. NEUROLOGIC: The patient is awake, alert, and oriented. No focal deficits noted. Speech is clear. Cranial nerves are intact. MUSCULOSKELETAL: Full distal strength noted. No abnormalities. No deformities. The patient complains of pain to the left hip area and to the left foot when pushing on foot. EXTREMITIES: No clubbing, cyanosis. There is edema noted to the bilateral lower extremities. The leg is soft and nonpitting. DP and PT pulses are present. SKIN: Warm, dry, and intact. No rashes or bruises noted. ASSESSMENT: 1. Acute kidney injury. 2. Dehydration. 3. Left hip pain. 4. Abdominal pain. 5. Congestive heart failure. 6. Hypertension. 7. History of atrial fibrillation, has permanent pacemaker. PLAN: We will admit this patient to the medical floor. We will consult Dr. Mike to look at this patient's kidney stone that is present in the bladder. We will slowly hydrate this patient for 24 hours because the patient has a history of congestive heart failure, and also the patient has a small amount of dehydration going on with this kidney stone. The patient does have abdominal pain, most likely related to the kidney stone. The patient has had some nausea and vomiting. Mucous membranes are a little dry. We will repeat a chest x-ray in the morning. We will repeat labs in the morning. We will consult Dr. 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 Keep this patient on bed rest. We will support this patient with pain medication and nausea medications and keep her NPO at present time. We will continue her home medications. We will hold off on her Lasix and her Xarelto further to see if they are going to do any procedures on her for her kidney stone. We are going to give her some Rocephin for a urinary tract infection. Dictated by MYRA Monique for Bryson Matos MD cc: MD Conrad Mcgill MD
[2018-08-13] MEDS: COLACE PO SCH (21:55)
--- NOTE | 2018-08-13 21:55 | CONSULTATION ---
DATE OF CONSULTATION: 08/13/2018 REASON FOR ADMISSION: Kidney stone. HISTORY OF PRESENT ILLNESS: Ms. Manzo is an 83-year-old female who is admitted for kidney issues today. 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 She originally had surgery with Dr. Jean Baptiste back in April 2018, for trochanteric femoral nailing, and she says she has been doing fairly well. Over the past few weeks though, she has gotten more hip pain, but also has gotten this belly pain as well. PAST MEDICAL HISTORY: 1. Atrial fibrillation. 2. She has a pacemaker. 3. Osteoporosis. 4. Macular degeneration. PAST SURGICAL HISTORY: 1. Left total knee arthroplasty. 2. Left trochanteric femoral nailing. 3. Right retrograde nailing of the hip. HOME MEDICATIONS: Per the medical record. ALLERGIES: No known drug allergies. SOCIAL HISTORY: She denies any alcohol or tobacco use. REVIEW OF SYSTEMS: Positive for left hip pain and belly pain. All other systems are essentially negative. PHYSICAL EXAMINATION: General: Elderly appearing female, lying in hospital bed in no acute distress. Head and Neck: Normocephalic, atraumatic. Respirations: Nonlabored breathing. Cardiovascular: Regular pulse. Abdomen: A little tender to palpation. Extremities: On left lower extremity exam, she has tenderness to palpation around the hip as well. She is neurovascularly intact in the left lower extremity. Her previous incision is well healed. RADIOGRAPHS: Several views of the left hip show a short trochanteric femoral nail. The helical blade has subsided some. There does not appear to be a lot of healing at the fracture site. ASSESSMENT: Left delayed healing, intertrochanteric hip fracture, status post trochanteric femoral nailing. PLAN: I discussed with Ms. Manzo about her hip. I am going to make her touchdown weightbearing for now. Physical Therapy can get her up and moving, but she would just be touchdown weightbearing. From this hospital admission, from an orthopedic standpoint, this may need to be addressed with a revision hip surgery. At this point though, I think it is better for her to get her kidney issues resolved first and then once she is discharged, she will be able to see Dr. Jean Baptiste in clinic and he can start going over everything with her about the hip. I will notify him that she is in the hospital as well. cc: Virgil Still MD
[2018-08-14] MEDS: OXY IR PO PRN ×3 (03:19→14:21)
[2018-08-14 06:25] LABS: BASO# 0.01 X1000 (0.0-0.2); BASO% 0.1 % (0.0-0.8); EOS# 0.11 X1000 (0.0-0.7); EOS% 0.8 % (0.0-10.0); HEMATOCRIT 36.4 % (37.0-47.0); HEMOGLOBIN 11.7 g/dL (12.0-16.0); IMM GRAN# 0.17 X1000 (0.0-0.04); IMM GRAN% 1.2 % (0.0-0.5); LYMPH# 0.75 X1000 (1.2-3.4); LYMPH% 5.3 % (20.5-51.1); MCH 30.3 PG (27-31); MCHC 32.1 g/dL (33-37); MCV 94.3 FL (81-99); MONO# 1.28 X1000 (0.11-0.59); MONO% 9.1 % (1.7-9.3); MPV 11.6 FL (7.4-10.4); NEUT# 11.81 X1000 (1.4-6.5); NEUT% 83.5 % (42.2-75.2); PLT 158 X1000 (130-400); RBC 3.86 XMIL (4.2-5.4); WBC 14.13 X1000 (4.8-10.8)
--- NOTE | 2018-08-14 06:28 | Diag Imaging Result Doc PS360 ---
CHEST-PORTABLE - 08/14/2018 INDICATION: chf COMPARISON: 08/13/2018 FINDINGS: Stable pacemaker. Stable cardiomegaly and pulmonary vascular congestion. No new or focal infiltrates. No large pleural effusion. IMPRESSION: No change from prior. Electronically signed by David Connors 08/14/2018 6:26 AM
[2018-08-14 06:30] LABS: INR 1.07; PROTIME 14.8 Seconds (11.0-16.0)
[2018-08-14 06:42] LABS: CALCIUM 9.4 mg/dL (8.8-10.2); MAGNESIUM 1.9 mg/dL (1.5-2.7); POTASSIUM 3.8 mmol/L (3.5-5.1)
[2018-08-14] MEDS: PRILOSEC PO SCH (06:52)
[2018-08-14 07:48] LABS: BANDS 4 % (0-1); LYMPHS 4 % (21-51); MONO 6 % (1-9); SEGS 86 % (42-75)
[2018-08-14] MEDS: MIRALAX PO SCH (09:00)
[2018-08-14] MEDS: VITAMIN D PO SCH (09:00)
[2018-08-14] MEDS: FERROUS SULFATE PO SCH (09:00)
[2018-08-14] MEDS: VITAMIN B-12 PO SCH (09:00)
[2018-08-14] MEDS: CORDARONE PO SCH (10:48)
--- NOTE | 2018-08-14 13:45 | ECHO REPORT ---
ORDER DATE: 08/14/2018 INDICATION FOR THE STUDY: No indication for the study is provided. FINDINGS: This is a difficult and limited study secondary to the patient's limited ability to cooperate. 1. Overall the left ventricle appears normal in size with LV systolic function that appears to be normal and greater than 55%. 2. Normal RV size and systolic function. 3. Mild tricuspid regurgitation. RV systolic pressure of 62. 4. No mitral valve prolapse. Mild mitral regurgitation. Suggestion of mild mitral annular calcification. 5. Aortic valve appears to be somewhat calcified with restriction of motion thought to be consistent with mild aortic stenosis. The peak gradient across the valve is 30 with a mean of 13. There is mild aortic insufficiency. 6. No pericardial effusion seen. cc: Sai Mata MD
[2018-08-14] MEDS ORDERED: DIPRIVAN 1% ONE (14:56)
[2018-08-14] MEDS ORDERED: ROBINUL ONE (14:57)
[2018-08-14] MEDS ORDERED: XYLOCAINE-MPF 2% ONE (14:57)
[2018-08-14] MEDS ORDERED: TORADOL ONE ×2 (15:08→15:48)
[2018-08-14] MEDS ORDERED: KETAMINE ONE (15:45)
[2018-08-14] MEDS ORDERED: ZOFRAN ONE (15:48)
[2018-08-14] MEDS ORDERED: ROCEPHIN 1 GM in NS 50 ML IV SCH (16:45)
--- NOTE | 2018-08-14 17:39 | PROGRESS NOTE ---
DATE: 08/14/2018 INTERVAL HISTORY: Patient with some increased left hip/leg pain earlier today, although reasonably well controlled at the time of my exam. Still some low abdomen to groin pain as well. Currently awaiting cystoscopy for stone removal/stenting. No new complaints. REVIEW OF SYSTEMS: Twelve point review of systems negative except as per interval history. LABS: WBC 14.1, hemoglobin 11.7, hematocrit 36.4, platelets 158,000. Sodium 138, potassium 3.8, BUN 26, creatinine 1.0, glucose 107. TSH 0.2, free T4 1.54. IMAGIN. Chest x-ray: Stable from previous. 2. Echocardiogram: Normal EF. Pulmonary pressure is much higher than previous with right ventricular systolic pressure of 62. Mild aortic stenosis. VITAL SIGNS: T-max 98.4 degrees, pulse 71, respirations 18, blood pressure 104/59, O2 saturation 98% on room air. PHYSICAL EXAMINATION: General: No acute distress. Vital signs: As above. HEENT: Normocephalic, atraumatic. Moist mucous membranes. No cervical adenopathy. Cardiovascular: Regular rate and rhythm. Right upper sternal border murmur, unchanged. Pulmonary: Very slight bibasilar crackles, otherwise clear to auscultation bilaterally. Abdomen: Soft. Still some mild lower abdominal tenderness without rebound or guarding. Bowel sounds present. Extremities: Peripheral pulses intact. No clubbing or cyanosis. Left hip is somewhat tender. Pain with movement of left lower extremity. Neurologic: Cranial nerves grossly intact. No deficits identified. Psychiatric: Normal mood and affect. Awake, alert, oriented x3. Patient seems to jump around a lot and does require frequent redirection, but not clearly tangential. Skin: No new rashes or lesions identified. ASSESSMENT AND PLAN: 1. Acute kidney injury with ureteral stone and mild hydronephrosis. Urology on board and planning on cystoscopy with likely stone removal later today. Kidney function somewhat improved overnight. Initial creatinine 1.3, repeat 1.0, baseline 0.7 to 0.8 so still a little bit to go. Holding on additional fluids as patient had mild edema on chest x-ray and BNP markedly elevated from previous. 2. Left hip pain, delayed healing of left hip fracture. Patient with repair of left femur fracture several weeks ago. Was reportedly doing well initially but increased pain over the last few days. X-ray here showing incomplete union of recent fixation. Dr. Still with Orthopedic Surgery has seen the patient and plans on making her toe-touch weightbearing for now. They plan on her following up in the clinic with Dr. Jean Baptiste. If she continues to have issues, then may need repeat surgery. 3. Chronic diastolic congestive heart failure. Patient with elevated BNP and mild edema on chest x-ray, but really asymptomatic from a respiratory standpoint. No dyspnea. No increased cough. Continues to saturate well on room air. We will hold off on any additional IV fluids to avoid volume overload, but no need for aggressive diuresis at this time. Echo repeated and shows normal EF but does have worsening pulmonary hypertension. Pulmonary pressures today 62. Previous pulmonary pressures just a few months ago 35. May need outpatient evaluation by pulmonology given rapid worsening. 4. Likely urinary tract infection. Pain could be coming from stone, but urinalysis suggestive of UTI with too numerous to count white cells, large leukocytes, 4+ bacteria, no epithelial cells. Patient on Rocephin. Urine culture growing gram-negative cirilo with speciation pending. 5. Atrial fibrillation. Patient with paroxysmal atrial fibrillation. Has been largely in normal sinus rhythm here. 6. Osteoporosis. Recommend patient discuss initiating therapy with her PCP on discharge. 7. Low thyroid-stimulating hormone. Patient's screening TSH low, but free T4 in the upper end of normal. Recommend recheck with PCP as an outpatient in a few weeks to confirm that she is not trying to get hyperthyroidism.
--- NOTE | 2018-08-14 19:35 | PROGRESS NOTE ---
DATE: 08/14/2018 Ms. Manzo reports she has had a decent night overnight. She currently denies vomiting. She continues to have left flank pain. T 98.4 degrees, P 71, BP 104/59.General: No acute distress. Abdomen: Nontender, nondistended. Back: Mild CVA tenderness. : Bladder nontender by palpation. PERTINENT LABS: White cell count 14,000, creatinine is 1.0. ASSESSMENT/PLAN: An 83-year-old female with 11 mm left ureteropelvic junction stone with obstruction, hydronephrosis, urinary tract infection and nausea and vomiting. I discussed with the patient cystoscopy with left ureteral stent placement today followed by left extracorporeal shockwave lithotripsy and stent removal in 1 to 2 weeks after she gets treated for urinary tract infection. We discussed the risks cystoscopy and left ureteral stent placement include but not limited to, bleeding, infection, injury to the bladder, injury to adjacent structures, inability to place a stent and need for additional interventions explained. She voiced understanding and wants to proceed. PLAN: To operating room today for cystoscopy, left ureteral stent placement. cc: Conrad Mike MD
--- NOTE | 2018-08-14 21:57 | OPERATIVE NOTE ---
PROCEDURE DATE: 08/14/2018 SURGEON: Dr. Conrad Mike. PREOPERATIVE DIAGNOSIS: 1. Left ureteropelvic junction stone with obstruction. 2. Left hydronephrosis. 3. Urinary tract infection. 4. Nausea and vomiting. POSTOPERATIVE DIAGNOSIS: 1. Left ureteropelvic junction stone with obstruction. 2. Left hydronephrosis. 3. Urinary tract infection. 4. Nausea and vomiting. PROCEDURE: Cystoscopy, placement of 6-Taiwanese, 24 cm left ureteral stent. INDICATIONS: An 83-year-old female who has had nausea, vomiting and left flank pain for 1 month. She acutely developed worsening nausea, vomiting for 1 week, presented to the hospital. She was found have leukocytosis, UTI and imaging revealing 11 mm left ureteropelvic junction stone with obstruction as well as bilateral stones. She presents for cystoscopy with stent placement and then in a scheduled fashion to undergo ESWL followed by stent removal after her infection is treated. FINDINGS: Bladder was full of purulent material. It was irrigated multiple copious times with normal saline. Successful stent placement. Purulent material was exiting the stent after it was placed. The stent successful bypassed the stone. DESCRIPTION OF PROCEDURE: After obtaining informed consent, patient brought to the operating room. Preoperative antibiotics and laryngeal mask anesthesia were administered. She was placed in lithotomy position, prepped and draped sterile fashion. A 20-Taiwanese cystoscope was used to gain access to the bladder which was then examined systematic fashion. She has a fairly significant cystocele as well as vaginal wall prolapse. The bladder showed no evidence of mucosal lesions, excessive trabeculations or diverticula. She did have gravity dependent white apparent sediment which was irrigated by filling the bladder and emptying several times via the cystoscope. We then placed a PTFE wire up to the level left renal pelvis and it was advanced without difficulties. A 6-Taiwanese, 24 cm stent was advanced over the wire via the cystoscope with the proximal coil position confirmed fluoroscopically, the distal coil directly visualized. The string was detached from the stent. The bladder was emptied, cystoscope was removed, she was extubated and taken to PACU for further recovery. ESTIMATED BLOOD LOSS: None. COMPLICATIONS: None. SPECIMENS: None. DRAINS: 6-Taiwanese, 24 cm ureteral stent. DISPOSITION: To PACU and subsequently floor. Will continue antibiotics. cc: Conrad Mike MD
[2018-08-14] MEDS: COLACE PO SCH (22:48)
[2018-08-14] MEDS: PERIDEX MT SCH (22:49)
[2018-08-15] MEDS: PRILOSEC PO SCH (06:15)
[2018-08-15 06:37] LABS: BASO# 0.01 X1000 (0.0-0.2); BASO% 0.1 % (0.0-0.8); EOS% 1.7 % (0.0-10.0); HEMATOCRIT 36.7 % (37.0-47.0); HEMOGLOBIN 11.4 g/dL (12.0-16.0); IMM GRAN# 0.18 X1000 (0.0-0.04); IMM GRAN% 1.5 % (0.0-0.5); LYMPH# 0.84 X1000 (1.2-3.4); MCH 29.7 PG (27-31); MCHC 31.1 g/dL (33-37); MCV 95.6 FL (81-99); MONO# 0.63 X1000 (0.11-0.59); MONO% 5.3 % (1.7-9.3); MPV 11.2 FL (7.4-10.4); NEUT# 10.14 X1000 (1.4-6.5); NEUT% 84.4 % (42.2-75.2); PLT 198 X1000 (130-400); RBC 3.84 XMIL (4.2-5.4); RDW 16.4 % (11.5-14.5)
[2018-08-15 06:47] LABS: CALCIUM 9.3 mg/dL (8.8-10.2); POTASSIUM 4.2 mmol/L (3.5-5.1)
--- NOTE | 2018-08-15 07:18 | Diag Imaging Result Doc PS360 ---
EXAM: CHEST-PORTABLE HISTORY: dyspnea TECHNIQUE: Portable chest single view COMPARISON: 08/14/2018 FINDINGS: The lungs are well expanded. The heart is enlarged. The vessels are mildly distended. There is a left-sided pacemaker. There are no infiltrates. No effusion identified. IMPRESSION: Improved inspiratory effort. Cardiomegaly and pulmonary edema remain. Electronically signed by Rafa Garrison 08/15/2018 7:15 AM
[2018-08-15 07:23] LABS: EOS 3 % (1-10); LYMPHS 9 % (21-51); MONO 4 % (1-9); SEGS 84 % (42-75)
[2018-08-15] MEDS ORDERED: NS 500 ML IV SCH (09:15)
[2018-08-15] MEDS: PERIDEX MT SCH ×2 (09:59→22:58)
[2018-08-15] MEDS: MIRALAX PO SCH (09:59)
[2018-08-15] MEDS: KEFZOL 1 GM/D5W 1 GM/50 ML IVPB IV SCH ×2 (09:59→17:04)
[2018-08-15] MEDS: FERROUS SULFATE PO SCH (10:00)
[2018-08-15] MEDS: CORDARONE PO SCH (10:00)
[2018-08-15] MEDS: VITAMIN D PO SCH (10:00)
[2018-08-15] MEDS: VITAMIN B-12 PO SCH (10:00)
[2018-08-15] MEDS: MORPHINE IV PRN (10:12)
--- NOTE | 2018-08-15 12:21 | Diag Imaging Result Doc PS360 ---
EXAM: FLUROSCOPY CYSTO HISTORY: L URETER STONE TECHNIQUE: Seven films submitted COMPARISON: None. FINDINGS: A wire was placed in the left ureter. A stent was placed over the wire and then the wire was removed. IMPRESSION: Left ureteral stent placed. Electronically signed by Rafa Garrison 08/15/2018 12:18 PM
--- NOTE | 2018-08-15 13:18 | PROGRESS NOTE ---
DATE: 08/15/2018 INTERVAL HISTORY: Ms. Manzo underwent cystoscopy and left ureteric stenting yesterday which she tolerated well. However, postprocedure, she was noted to be hypotensive. Also, I was informed by the nursing team that the patient only had about 100 mL of urine output. I ordered a bladder scan, lactate, blood cultures, and normal saline for her. SUBJECTIVE: She is feeling better. She states she has been able to eat better today. Denies any chest pain, shortness of breath, nausea, vomiting. Her abdominal pain is also better. We discussed about exam findings and answered all of her questions. PHYSICAL EXAMINATION: Vital signs: Currently, temperature 97.6 degrees, pulse 60, respiratory rate 20, blood pressure is 123/56. She is saturating 96% on room air. General: Morbidly obese. Not in any acute distress. HEENT: Oral cavity is moist. Pulmonary: She has bilateral inspiratory crackles in infrascapular region. No wheeze or rhonchi, and adequate and equal air entry bilaterally. Cardiovascular: S1, S2 normal. She has a prominent systolic murmur affecting right second intercostal space. No rub or gallop. Abdomen: Obese, soft. Generalized tender. Extremities: She has bilateral lower extremity edema. LABORATORY DATA: Suggestive of improving leukocytosis, normocytic anemia, normal platelet count, normal electrolytes. She has a jump in her BUN, creatinine remains the same. Her acute kidney injury is currently slightly improved from presentation. MICROBIOLOGY DATA: Urine culture is growing Escherichia coli, sensitive to cefazolin. IMAGING: No new imaging today except chest x-ray for dyspnea which suggests improved inspiratory effort and a similar degree of pulmonary edema. ASSESSMENT AND PLAN: 1. Acute kidney injury due to acute obstructive uropathy with left ureteropelvic junction nephrolithiasis leading to left acute pyelonephritis and left hydronephrosis, status post cystoscopy and left ureteric stent on 14 August. I will give her 500 mL of normal saline if she still has hypotension. We will follow up with blood culture and lactate. Change antibiotics to intravenous cefazolin. Chest x-ray suggests stable pulmonary edema. 2. Hypotension. This could be in the setting of sepsis related to acute pyelonephritis. I will follow up with blood culture and lactate level and consider gentle normal saline fluid resuscitation. 3. Left hip pain with delayed healing of left hip fracture which was repaired in April 2018 with trochanteric femoral nailing. Currently, Orthopedic recommends touchdown weightbearing and outpatient followup to see if she would need a revision surgery. 4. Chronic diastolic congestive heart failure with elevated proBNP. Echocardiogram suggests mild aortic stenosis with ejection fraction of 55%. I will keep a close eye over her respiratory status and give her Lasix as needed to avoid volume overload. 5. History of paroxysmal atrial fibrillation. Continue her home amiodarone. She is status post pacemaker. 6. Osteoporosis and low TSH. She should follow up with her regular doctor as an outpatient. 7. Disposition. I will continue to monitor patient in the hospital considering her hypotension and as we await blood culture results. Plan of care discussed with the patient. All of her questions have been answered. Physical Therapy has been seeing her. cc: Mynor Colunga MD MTDD
--- NOTE | 2018-08-15 14:05 | PROGRESS NOTE ---
DATE: 08/15/2018 SUBJECTIVE: Ms. Manzo underwent cystoscopy with left ureteral stent placement. Intraoperatively, she had significant amount of purulent discharge after the stent was placed and emanating from her kidney. She denies nausea and vomiting. OBJECTIVE: Vital Signs: Temperature 97.6 degrees, pulse 60, blood pressure 123/56. General: No acute distress. Abdomen: Nontender, nondistended. Bladder nontender to palpation. PERTINENT LABORATORY DATA: White cell count is 12,000, creatinine is 1.0. ASSESSMENT/PLAN: An 83-year-old female, who has obstructing left ureteral stone with hydronephrosis, nausea, vomiting, chills and urinary tract infection. She underwent cystoscopy with left ureteral stent placement on 08/14/2018. The patient's urine culture has grown Escherichia coli which is pansensitive. I do not see that she has had any blood cultured sent. The patient as previously discussed will benefit from left extracorporeal shockwave lithotripsy and stent removal, which can be done in the next 1 to 2 weeks. I would recommend treating her urinary tract infection for 14 days, given that it is a complicated one and she had an obstructing stone, and has been sick for quite some time. PLAN: No further intervention needed During his hospitalization from urologist, who recommends antibiotics for a total course of 14 days. We will set the patient up for left extracorporeal shockwave lithotripsy and cystoscopy with left ureteral stent removal in the near future. cc: Conrad Mike MD
[2018-08-15] MEDS ORDERED: BLISTEX MEDICATED BERRY LIP BALM TOP PRN (15:23)
[2018-08-15 15:42] LABS: CALCIUM 8.9 mg/dL (8.8-10.2); POTASSIUM 3.8 mmol/L (3.5-5.1)
[2018-08-15] MEDS: COLACE PO SCH (22:59)
[2018-08-15] MEDS: OXY IR PO PRN (23:03)
[2018-08-16] MEDS: KEFZOL 1 GM/D5W 1 GM/50 ML IVPB IV SCH ×3 (01:15→17:21)
[2018-08-16] MEDS: PRILOSEC PO SCH ×2 (05:51→08:33)
[2018-08-16 06:32] LABS: AGAP 9; BUN 20 mg/dL (8-22); CALCIUM 8.7 mg/dL (8.8-10.2); CHLORIDE 100 mmol/L (98-107); COSMO 274; CREATININE 0.8 mg/dL (0.5-0.9); ESTIMATED GFR > 60; GLUCOSE 123 mg/dL (70-104); POTASSIUM 3.9 mmol/L (3.5-5.1); SODIUM 135 mmol/L (136-145); TCO2 26 mmol/L (25-35)
[2018-08-16 07:23] LABS: BASO# 0.01 X1000 (0.0-0.2); BASO% 0.1 % (0.0-0.8); EOS# 0.27 X1000 (0.0-0.7); EOS% 1.8 % (0.0-10.0); HEMATOCRIT 35.7 % (37.0-47.0); HEMOGLOBIN 11.5 g/dL (12.0-16.0); IMM GRAN# 0.23 X1000 (0.0-0.04); IMM GRAN% 1.5 % (0.0-0.5); LYMPH% 6.7 % (20.5-51.1); MCH 30.3 PG (27-31); MCHC 32.2 g/dL (33-37); MCV 93.9 FL (81-99); MONO# 0.89 X1000 (0.11-0.59); MPV 11.2 FL (7.4-10.4); NEUT# 12.46 X1000 (1.4-6.5); NEUT% 83.9 % (42.2-75.2); PLT 292 X1000 (130-400); RDW 16.3 % (11.5-14.5); WBC 14.86 X1000 (4.8-10.8)
[2018-08-16] MEDS: VITAMIN B-12 PO SCH (08:31)
[2018-08-16] MEDS: FERROUS SULFATE PO SCH (08:32)
[2018-08-16] MEDS: PERIDEX MT SCH ×2 (08:32→22:58)
[2018-08-16] MEDS: VITAMIN D PO SCH (08:32)
[2018-08-16] MEDS: CORDARONE PO SCH (08:32)
[2018-08-16] MEDS: MIRALAX PO SCH (08:33)
[2018-08-16] MEDS: MORPHINE IV PRN ×2 (09:05→20:25)
--- NOTE | 2018-08-16 11:13 | PROGRESS NOTE ---
DATE: 08/16/2018 SUBJECTIVE: Ms. Manzo states she feels better. Her nausea has resolved. She denies flank discomfort. OBJECTIVE: Vital Signs: Temperature 97.5 degrees, pulse 60, blood pressure 110/52. General: No acute distress. Abdomen nontender, nondistended. Bladder nontender to palpation. PERTINENT LABORATORY DATA: White cell count is 15,000, hematocrit 36, and creatinine is 0.8. ASSESSMENT: 83-year-old female, who is postop day 2, status post cystoscopy with left ureteral stent placement secondary to obstructing left ureteropelvic junction stone and urinary tract infection. Her urine culture came back as Escherichia coli and she is on Ancef to which Escherichia is susceptible. I have discussed with the patient that her stone was not addressed but rather the stent bypassed the stone and while she is feeling better, the stone still needs to be treated in the near future. We discussed that she would benefit from left extracorporeal shockwave lithotripsy and cystoscopy with stent removal. We could do it as early as this if the schedule allows. The patient voiced understanding. PLAN: 1. If she is cleared by the hospitalist doctors for discharge she will come in on an outpatient basis and be set up for left extracorporeal shockwave lithotripsy, cystoscopy with stent removal. If she is still in the hospital we could add her on 08/20/2018 for left extracorporeal shockwave lithotripsy with cystoscopy and stent removal. 2. I will follow along in the hospital. cc: Conrad Mike MD
--- NOTE | 2018-08-16 13:01 | PROGRESS NOTE ---
DATE: 08/16/2018 SUBJECTIVE: Patient has no new complaints, although she states she feels terrible but notes that it is a little bit better than yesterday. OBJECTIVE: Temperature 97.5, pulse 60, respiratory rate 18, BP 110/52.General: Patient is awake, alert, currently in no distress. HEENT: Normocephalic. Neck: Supple. Cardiovascular: Regular rate. Chest: Clear. Abdomen: Soft. Extremities: Moves all extremities. ASSESSMENT: 1. Acute kidney injury. Continues to improve. 2. Hypotension, resolved. 3. Left hip pain with delayed healing from hip fracture which was repaired 05/15/2018. 4. Congestive heart failure, chronic. PLAN: We will continue patient in the hospital. Her antibiotics were changed yesterday due to sensitivities. We will discuss with Infectious Disease and will follow. cc: Gilmar Tovar MD
[2018-08-16] MEDS: OXY IR PO PRN (17:31)
[2018-08-16] MEDS: COLACE PO SCH (22:58)
[2018-08-17] MEDS: OXY IR PO PRN ×3 (00:52→20:11)
[2018-08-17] MEDS: KEFZOL 1 GM/D5W 1 GM/50 ML IVPB IV SCH ×2 (00:53→10:52)
[2018-08-17] MEDS: PRILOSEC PO SCH (06:18)
[2018-08-17 06:19] LABS: BASO# 0.01 X1000 (0.0-0.2); BASO% 0.1 % (0.0-0.8); EOS# 0.24 X1000 (0.0-0.7); EOS% 1.3 % (0.0-10.0); HEMATOCRIT 35.8 % (37.0-47.0); HEMOGLOBIN 11.4 g/dL (12.0-16.0); IMM GRAN# 0.27 X1000 (0.0-0.04); IMM GRAN% 1.4 % (0.0-0.5); LYMPH# 1.21 X1000 (1.2-3.4); LYMPH% 6.4 % (20.5-51.1); MCH 30.1 PG (27-31); MCHC 31.8 g/dL (33-37); MCV 94.5 FL (81-99); MONO# 0.75 X1000 (0.11-0.59); MPV 10.6 FL (7.4-10.4); NEUT# 16.29 X1000 (1.4-6.5); NEUT% 86.8 % (42.2-75.2); PLT 361 X1000 (130-400); RBC 3.79 XMIL (4.2-5.4); RDW 16.4 % (11.5-14.5); WBC 18.77 X1000 (4.8-10.8)
[2018-08-17 06:33] LABS: CALCIUM 8.9 mg/dL (8.8-10.2); CREATININE 0.9 mg/dL (0.5-0.9); POTASSIUM 3.8 mmol/L (3.5-5.1)
[2018-08-17] MEDS: VITAMIN D PO SCH (10:52)
[2018-08-17] MEDS: PERIDEX MT SCH ×2 (10:52→20:12)
[2018-08-17] MEDS: MIRALAX PO SCH (10:52)
[2018-08-17] MEDS: VITAMIN B-12 PO SCH (10:53)
[2018-08-17] MEDS: FERROUS SULFATE PO SCH (10:53)
[2018-08-17] MEDS: CORDARONE PO SCH (10:54)
[2018-08-17] MEDS: MORPHINE IV PRN (11:04)
--- NOTE | 2018-08-17 17:01 | PROGRESS NOTE ---
DATE: 08/17/2018 SUBJECTIVE: She does not feel well but she seems to be doing okay. OBJECTIVE: Blood pressure is 122/63, heart rate 68, respiratory rate 20, temperature 98.1 degrees, 98% on room air.Cardiovascular: Regular rate and rhythm. Pulmonary: Bilateral breath sounds. Clear to auscultation. GI: Soft, nontender, nondistended. Bowel sounds are positive. LABORATORY DATA: Her white count is still elevated 18,000, unclear in the face of a E coli UTI for which she is pretty well tolerant. White count 18, hemoglobin and hematocrit 11, 35. Micro showed E coli. PROBLEM LIST: 1. Escherichia coli urinary tract infection. She is on cefazolin. I am going to increase it to 2 g q.8 and will monitor her. 2. Acute kidney injury that also seems to be improving. Will continue to monitor closely. 3. Hypertension appears to be fairly stable. Will continue regular medications. 4. Atrial fibrillation also appears to be fairly stable. DISPOSITION: I anticipate we let her go home soon depending on how she is looking. cc: Taye Cornell MD
[2018-08-17] MEDS: KEFZOL 2 GM/D5W 2 GM/50 ML IVPB IV SCH (18:46)
[2018-08-17] MEDS: COLACE PO SCH (20:12)
[2018-08-17] MEDS: TYLENOL PO PRN (20:12)
[2018-08-17] MEDS: UROGESIC-BLUE PO PRN (20:32)
[2018-08-18] MEDS: KEFZOL 2 GM/D5W 2 GM/50 ML IVPB IV SCH ×3 (01:18→18:47)
[2018-08-18] MEDS: OXY IR PO PRN ×4 (01:19→23:19)
[2018-08-18] MEDS: UROGESIC-BLUE PO PRN (02:41)
[2018-08-18 06:49] LABS: CALCIUM 9.3 mg/dL (8.8-10.2); CREATININE 0.9 mg/dL (0.5-0.9)
[2018-08-18] MEDS: TYLENOL PO PRN ×3 (06:54→23:19)
[2018-08-18] MEDS: PRILOSEC PO SCH (06:54)
[2018-08-18 06:55] LABS: BASO# 0.02 X1000 (0.0-0.2); BASO% 0.1 % (0.0-0.8); EOS# 0.25 X1000 (0.0-0.7); EOS% 1.4 % (0.0-10.0); HEMATOCRIT 36.4 % (37.0-47.0); HEMOGLOBIN 11.5 g/dL (12.0-16.0); IMM GRAN# 0.25 X1000 (0.0-0.04); IMM GRAN% 1.4 % (0.0-0.5); LYMPH# 1.63 X1000 (1.2-3.4); LYMPH% 9.1 % (20.5-51.1); MCH 30.3 PG (27-31); MCHC 31.6 g/dL (33-37); MCV 95.8 FL (81-99); MONO# 0.77 X1000 (0.11-0.59); MONO% 4.3 % (1.7-9.3); MPV 10.5 FL (7.4-10.4); NEUT# 15.01 X1000 (1.4-6.5); NEUT% 83.7 % (42.2-75.2); PLT 439 X1000 (130-400); RDW 16.5 % (11.5-14.5); WBC 17.93 X1000 (4.8-10.8)
[2018-08-18 07:11] LABS: BANDS 4 % (0-1); LYMPHS 6 % (21-51); MONO 2 % (1-9); SEGS 88 % (42-75)
[2018-08-18] MEDS: FERROUS SULFATE PO SCH (09:00)
[2018-08-18] MEDS: VITAMIN D PO SCH (09:00)
[2018-08-18] MEDS: MIRALAX PO SCH (09:00)
[2018-08-18] MEDS: PERIDEX MT SCH ×2 (09:00→22:55)
[2018-08-18] MEDS: VITAMIN B-12 PO SCH (09:00)
[2018-08-18] MEDS: CORDARONE PO SCH (09:01)
--- NOTE | 2018-08-18 17:20 | PROGRESS NOTE ---
DATE: 08/18/2018 SUBJECTIVE: The patient has no major complaints. She is sitting up in bed. Seems fairly comfortable. No nausea, but she says she does not feel very good, which she has had said every day since she has been in the hospital. OBJECTIVE: Vital Signs: Blood pressure is 106/67, heart rate of 60, respiratory rate of 20, temperature 97.6. Cardiovascular: Regular rate and rhythm. Pulmonary: Bilateral breath sounds. Clear to auscultation. Gastrointestinal: Soft, nontender, nondistended. Bowel sounds are positive. LABORATORY DATA: White count 17, which is a little bit of a drop. Hemoglobin and hematocrit 11 and 36, platelets 439,000. Basic was normal. Creatinine 0.9. PROBLEM LIST: 1. Escherichia coli urinary tract infection. She is currently on cefazolin and seems to be doing okay. White count is a little bit better. Dr. Mike feels that we should proceed with a lithotripsy because was she is still showing signs of infection. There was a lot of purulence when he placed a stent during her initial JJ stent placement. 2. Acute kidney injury. That also is improving. 3. Hypertension. Continue regular medications. 4. Atrial fibrillation, is also stable. DISPOSITION: Anticipate discharge on after lithotripsy. We will continue to follow. cc: Taye Cornell MD
[2018-08-18] MEDS: COLACE PO SCH (22:55)
[2018-08-19] MEDS: OXY IR PO PRN ×4 (02:40→14:24)
[2018-08-19] MEDS: KEFZOL 2 GM/D5W 2 GM/50 ML IVPB IV SCH ×3 (02:41→18:55)
[2018-08-19] MEDS: PRILOSEC PO SCH (07:02)
[2018-08-19] MEDS: TYLENOL PO PRN (07:03)
[2018-08-19 09:43] LABS: CREATININE 0.9 mg/dL (0.5-0.9); POTASSIUM 4.1 mmol/L (3.5-5.1)
[2018-08-19 10:25] LABS: BASO# 0.01 X1000 (0.0-0.2); BASO% 0.1 % (0.0-0.8); EOS# 0.19 X1000 (0.0-0.7); EOS% 1.3 % (0.0-10.0); HEMATOCRIT 35.5 % (37.0-47.0); HEMOGLOBIN 11.2 g/dL (12.0-16.0); IMM GRAN# 0.18 X1000 (0.0-0.04); IMM GRAN% 1.2 % (0.0-0.5); LYMPH# 1.58 X1000 (1.2-3.4); LYMPH% 10.9 % (20.5-51.1); MCH 30.4 PG (27-31); MCHC 31.5 g/dL (33-37); MCV 96.5 FL (81-99); MONO# 0.83 X1000 (0.11-0.59); MONO% 5.8 % (1.7-9.3); MPV 10.4 FL (7.4-10.4); NEUT# 11.64 X1000 (1.4-6.5); NEUT% 80.7 % (42.2-75.2); PLT 544 X1000 (130-400); RBC 3.68 XMIL (4.2-5.4); RDW 16.7 % (11.5-14.5); WBC 14.43 X1000 (4.8-10.8)
[2018-08-19] MEDS: FERROUS SULFATE PO SCH (10:25)
[2018-08-19] MEDS: MIRALAX PO SCH (10:25)
[2018-08-19] MEDS: PERIDEX MT SCH ×2 (10:25→22:32)
[2018-08-19] MEDS: VITAMIN D PO SCH (10:25)
[2018-08-19] MEDS: CORDARONE PO SCH (10:26)
[2018-08-19] MEDS: VITAMIN B-12 PO SCH (10:26)
[2018-08-19 11:06] LABS: BANDS 2 % (0-1); EOS 3 % (1-10); LYMPHS 13 % (21-51); MONO 2 % (1-9); SEGS 80 % (42-75)
--- NOTE | 2018-08-19 11:44 | PROGRESS NOTE ---
DATE: 08/18/2018 SUBJECTIVE: Ms. Manzo states she is doing well. She continues to have mild flank pain. She denies nausea or vomiting. OBJECTIVE: Vital Signs: T 97.6 degrees, pulse 60, and BP 106/67. General: No acute distress. Abdomen: Nontender, nondistended. : Bladder nontender by palpation. PERTINENT LABORATORY DATA: White cell count 18,000. Creatinine is 0.9. ASSESSMENT/PLAN: An 83-year-old female who is status post cystoscopy and left ureteral stent placement secondary to left ureteropelvic junction stone with obstruction. She would like to undergo left extracorporeal shockwave lithotripsy and cystoscopy with left ureteral stent removal on 08/20/2018. PLAN: 1. Continue antibiotics for now. 2. We will plan for left extracorporeal shockwave lithotripsy, cystoscopy with left ureteral stent removal on 08/20/2018. cc: Conrad Mike MD
--- NOTE | 2018-08-19 18:33 | PROGRESS NOTE ---
DATE: 08/19/2018 SUBJECTIVE: The patient has no complaints, but it looks like she has emesis today associated with some Ensure she drank. OBJECTIVE DATA: Vital Signs: Blood pressure is 154/43, heart rate is 60, respiratory rate of 14, temperature 98.6 degrees, 100% saturation on room air. Cardiovascular: Regular rate and rhythm. Pulmonary: Bilateral breath sounds. Clear to auscultation. GI: Soft, nontender, nondistended. Bowel sounds are positive. LABORATORY DATA: Her white count is down to 14, hemoglobin and hematocrit 11 and 35, platelets 544,000. Micro showed E coli with negative blood cultures, non ESBL. PROBLEM LIST: 1. Escherichia coli urinary tract infection, complicated with a ureterolithiasis with obstruction. She is currently on cefazolin. Dr. Mike is going to do a lithotripsy tomorrow because she still has infection and she had pretty significant pyuria when she came in, when he evaluated her cystoscopically in the operating room, she is going to undergo lithotripsy tomorrow. 2. Acute kidney injury. She appears to be improving. I am going to give her a little bit of fluid overnight. Her persistent nausea and vomiting concern me. I am not quite sure why she is having issues with pain. She did have a bowel movement today, but I am not sure why she is still throwing up. We will repeat labs and get plain films and follow closely. Otherwise, anticipated discharge tomorrow, but it will be pending her clinical course. cc: Taye Cornell MD
[2018-08-19 19:07] LABS: AGAP 12; ALB/GLOB RATIO 0.7; ALBUMIN 2.5 g/dL (3.5-5.0); ALKALINE PHOSPHATASE 127 U/L (32-104); BUN 17 mg/dL (8-22); CALCIUM 9.1 mg/dL (8.8-10.2); CHLORIDE 98 mmol/L (98-107); COSMO 277; CREATININE 0.9 mg/dL (0.5-0.9); ESTIMATED GFR 60; GLUCOSE 133 mg/dL (70-104); GOT 11 U/L (10-30); GPT < 5 U/L (10-36); POTASSIUM 3.8 mmol/L (3.5-5.1); SODIUM 137 mmol/L (136-145); TCO2 27 mmol/L (25-35); TOTAL BILIRUBIN 0.27 mg/dL (0.20-1.00); TOTAL PROTEIN 6.2 g/dL (6.3-8.3)
[2018-08-19] MEDS: ZOFRAN IV PRN (19:59)
[2018-08-19] MEDS: MORPHINE IV PRN (20:00)
--- NOTE | 2018-08-19 21:45 | Diag Imaging Result Doc PS360 ---
EXAM: ABDOMEN FLAT/UPRIGHT INDICATION: pain TECHNIQUE: 3 views COMPARISON: 08/13/2018 FINDINGS: There is abundant stool in the rectum suggesting a small rectal fecal impaction. There is no obstructive bowel pattern. There is no evidence of large volume free abdominal gas. There is nephrolithiasis and there has been interval placement of a left ureteral stent. IMPRESSION: 1.Interval placement of left ureteral stent. 2.Small rectal fecal impaction. Electronically signed by Sandeep Patel 08/19/2018 9:43 PM
[2018-08-19] MEDS: COLACE PO SCH (22:32)
[2018-08-20] MEDS: MORPHINE IV PRN (00:38)
[2018-08-20] MEDS: ZOFRAN IV PRN (00:39)
--- NOTE | 2018-08-20 03:31 | PROGRESS NOTE ---
DATE: 08/19/2018 SUBJECTIVE: Ms. Manzo denies significant left flank pain. She does report left lower extremity pain as well as generalized abdominal pain. She is concerned about her left hip. OBJECTIVE: Vital signs: T 98.6 degrees, P 60, BP 154/43. General: No acute distress. Abdomen: Nontender, nondistended. Genitourinary: Bladder is nontender to palpation. PERTINENT LABORATORY DATA: White cell count 14,000. Creatinine is 0.9. PERTINENT IMAGES: Abdominal x-ray reveals ureteral stent in decent position as well as left nephrolithiasis. ASSESSMENT/PLAN: An 83-year-old female, who has undergone cystoscopy and left ureteral stent placement secondary to left ureteropelvic junction stone with obstruction. We plan for her to undergo left extracorporeal shockwave lithotripsy as well as cystoscopy with left ureteral stent removal on 08/20/2018. Discussed the risks of the procedure with the patient including, but not limited to, bleeding, infection, injury to the kidney, injury to adjacent structures, inability to break up all the stones, stone fragments traveling down the ureter and become enlarged, need for additional interventions were explained. She voiced understanding and wants to proceed. PLAN: 1. NPO after midnight. 2. To operating room on 08/20/2018 for left extracorporeal shockwave lithotripsy and cystoscopy with left ureteral stent removal. cc: Conrad Mike MD
[2018-08-20] MEDS: KEFZOL 2 GM/D5W 2 GM/50 ML IVPB IV SCH (04:30)
[2018-08-20 06:56] LABS: BASO# 0.01 X1000 (0.0-0.2); BASO% 0.1 % (0.0-0.8); EOS# 0.19 X1000 (0.0-0.7); EOS% 1.3 % (0.0-10.0); HEMATOCRIT 35.4 % (37.0-47.0); IMM GRAN# 0.21 X1000 (0.0-0.04); IMM GRAN% 1.4 % (0.0-0.5); LYMPH# 1.34 X1000 (1.2-3.4); LYMPH% 9.1 % (20.5-51.1); MCH 29.7 PG (27-31); MCHC 31.1 g/dL (33-37); MCV 95.7 FL (81-99); MONO# 0.98 X1000 (0.11-0.59); MONO% 6.7 % (1.7-9.3); MPV 10.2 FL (7.4-10.4); NEUT# 11.98 X1000 (1.4-6.5); NEUT% 81.4 % (42.2-75.2); PLT 562 X1000 (130-400); RDW 16.7 % (11.5-14.5); WBC 14.71 X1000 (4.8-10.8)
[2018-08-20] MEDS: PRILOSEC PO SCH (06:57)
[2018-08-20] MEDS ORDERED: XYLOCAINE-MPF 2% ONE (07:29)
[2018-08-20] MEDS ORDERED: DIPRIVAN 1% ONE (07:29)
[2018-08-20] MEDS ORDERED: ZOFRAN ONE (08:15)
[2018-08-20] MEDS ORDERED: LASIX ONE (08:15)
[2018-08-20] MEDS: MORPHINE ONE ×2 (09:38→09:44)
--- NOTE | 2018-08-20 09:41 | OPERATIVE NOTE ---
PROCEDURE DATE: 08/20/2018 PREOPERATIVE DIAGNOSES: 1. Left ureteropelvic junction stone. 2. Left ureteral stent. POSTOPERATIVE DIAGNOSES: 1. Left ureteropelvic junction stone. 2. Left ureteral stent. PROCEDURES PERFORMED: 1. Left extracorporeal shockwave lithotripsy. 2. Cystoscopy with left ureteral stent removal. SURGEON: Conrad Mike M.D. INDICATIONS: An 83-year-old female who was admitted to the hospital and found to have an 11 mm left ureteropelvic junction stone with obstruction. She had undergone cystoscopy and left ureteral stent placement a few days ago. She has been treated with antibiotics for UTI. She now presents for definitive intervention on the stone with ESWL, as well as cystoscopy and stent removal. FINDINGS: The stent was removed in one piece. It was discarded. Successful stone break-up with 3000 shocks delivered at a frequency 1.5 hertz, energy settings from 1 until 7. Total fluoroscopy time 1 minute 35 seconds. DESCRIPTION OF PROCEDURE: After obtaining informed consent, the patient was brought to the operating room. Perioperative antibiotics had not been given as she is on scheduled antibiotics. Anesthesia was administered. She was placed in the supine position. We made sure that her lower extremities were appropriately padded as she has had hip fractures. The stone was seen easily under fluoroscopy. The Lithotripter was positioned over the left flank. The above-stated number of shocks were delivered. Then, 20 mg of intravenous Lasix were given. After that, she was placed in the modified frogleg position of the right lower extremity. We could not bend her left lower extremity, and left it alone. She was prepped and draped. A 16-Nauruan flexible cystoscope was used to gain access to the urethra and the bladder, which was briefly examined. I was able to visualize the stent protruding from the left ureteral orifice. It was secured with graspers and removed. She was then extubated and taken to PACU for further recovery. ESTIMATED BLOOD LOSS: None. COMPLICATIONS: None. DISPOSITION: To PACU, and subsequently the floor for observation. From the urologic standpoint, the patient can now be discharged as she has had her stone addressed. I have educated her preoperatively that she could expect hematuria as well as spasms, and there was a small chance that the stone fragments could get lodged in the ureter, possibly requiring additional intervention. She voiced understanding preoperatively. cc: Conrad Mike MD
[2018-08-20] MEDS ORDERED: NORCO-5 PO PRN (09:49)
[2018-08-20] MEDS: MIRALAX PO SCH (10:45)
[2018-08-20] MEDS: VITAMIN D PO SCH (10:46)
[2018-08-20] MEDS: VITAMIN B-12 PO SCH (10:46)
[2018-08-20] MEDS: PERIDEX MT SCH ×2 (10:46→20:33)
[2018-08-20] MEDS: FERROUS SULFATE PO SCH (10:46)
[2018-08-20] MEDS: CORDARONE PO SCH (10:47)
--- NOTE | 2018-08-20 11:33 | PROGRESS NOTE ---
DATE: 08/20/2018 INTERVAL HISTORY: Ms. Manzo had an episode of vomiting yesterday and since night, she has had multiple bowel movements. Today, she just underwent a urological procedure with a left extracorporeal shockwave lithotripsy and removal of left ureteral stent. SUBJECTIVE: She is feeling better. Denies any nausea or vomiting. She does have right-sided upper and lower quadrant abdominal pain. VITALS: Currently afebrile, temperature 97.1 degrees, pulse 60, respiratory rate 14, blood pressure 124/49. She is saturating 100% on 2 L nasal cannula to room air. PHYSICAL EXAMINATION: Not in any acute distress. Oral cavity is moist. Lungs: Air entry bilaterally equal. No wheeze or rhonchi or crackles except mild crackles in the infrascapular region. S1, S2 normal. Prominent systolic murmur affecting right second intercostal space. No rub or gallop. Abdomen: Obese, soft. Mildly tender in the right upper and lower quadrants. No rebound, rigidity, and negative Blanco signs. Extremities: Bilateral mild lower extremity edema. LABS: Today suggestive of persistent leukocytosis, normocytic anemia, thrombocytosis. She does not have any BMP for today. MICROBIOLOGY: Blood culture, no growth to date. Urine culture has E. coli which is sensitive to first generation cephalosporin. IMAGING: Abdominal x-ray yesterday had fecal impaction in the rectum. ASSESSMENT AND PLAN: 1. Acute kidney injury due to acute obstructive uropathy with left ureteropelvic junction nephrolithiasis leading to left acute pyelonephritis and left hydronephrosis, status post cystoscopy, temporary placement of left ureteric stent on August 14, and lithotripsy of stone with removal of stent on August 20. Blood culture did not have any growth. Change intravenous cefazolin to oral cephalexin for her Escherichia coli acute pyelonephritis. 2. Nausea, vomiting, and abdominal pain. This could be in the setting of fecal impaction and my hope is with resolution of her constipation, it should get better. If she continues to have nausea and vomiting, the plan is to get ultrasound of the abdomen since her CAT scan did have cholelithiasis and possibly consider surgery evaluation if she would need cholecystectomy. 3. Left hip pain with delayed healing of left hip fracture which was repaired in April 2018 with trochanteric femoral nailing. Orthopedic recommends touchdown weightbearing and outpatient followup to see if she would need revision surgery. 4. Chronic diastolic congestive heart failure, mild aortic stenosis with ejection fraction of 55%, currently well compensated. 5. Paroxysmal atrial fibrillation. Continue her home amiodarone. She is status post pacemaker. She is not listed to be taking any blood thinner medication except Xarelto, which I would resume tomorrow onwards. 6. Other issues including osteoporosis and low TSH, stable. She should follow up with outpatient provider. 7. Disposition. The patient still has 10 days of rehab left. My plan is to monitor her for any recurrence of nausea, vomiting, and abdominal pain today. Social work team has not been able to get a hold of patient's son. When both are done, my plan is to potentially discharge her to rehab tomorrow. Plan of care discussed with her. All of her questions have been answered. cc: Mynor Colunga MD
[2018-08-20] MEDS: DULCOLAX PR SCH (20:33)
[2018-08-20] MEDS: COLACE PO SCH (20:33)
[2018-08-20] MEDS: KEFLEX PO SCH (20:33)
[2018-08-21 06:51] LABS: BASO# 0.02 X1000 (0.0-0.2); BASO% 0.2 % (0.0-0.8); EOS# 0.22 X1000 (0.0-0.7); EOS% 1.8 % (0.0-10.0); HEMATOCRIT 34.7 % (37.0-47.0); HEMOGLOBIN 10.6 g/dL (12.0-16.0); IMM GRAN# 0.11 X1000 (0.0-0.04); IMM GRAN% 0.9 % (0.0-0.5); LYMPH# 1.26 X1000 (1.2-3.4); LYMPH% 10.5 % (20.5-51.1); MCH 29.7 PG (27-31); MCHC 30.5 g/dL (33-37); MCV 97.2 FL (81-99); MONO# 0.94 X1000 (0.11-0.59); MONO% 7.8 % (1.7-9.3); MPV 9.7 FL (7.4-10.4); NEUT# 9.49 X1000 (1.4-6.5); NEUT% 78.8 % (42.2-75.2); PLT 598 X1000 (130-400); RBC 3.57 XMIL (4.2-5.4); RDW 16.8 % (11.5-14.5); WBC 12.04 X1000 (4.8-10.8)
[2018-08-21 07:05] LABS: AGAP 9; BUN 15 mg/dL (8-22); CALCIUM 9.5 mg/dL (8.8-10.2); CHLORIDE 99 mmol/L (98-107); COSMO 278; CREATININE 0.8 mg/dL (0.5-0.9); ESTIMATED GFR > 60; GLUCOSE 117 mg/dL (70-104); MAGNESIUM 2.2 mg/dL (1.5-2.7); PHOSPHORUS 3.1 mg/dL (2.7-4.5); SODIUM 138 mmol/L (136-145); TCO2 30 mmol/L (25-35)
[2018-08-21] MEDS ORDERED: LOVENOX SUBQ SCH (08:00)
[2018-08-21] MEDS: FERROUS SULFATE PO SCH (09:20)
[2018-08-21] MEDS: VITAMIN D PO SCH (09:20)
[2018-08-21] MEDS: VITAMIN B-12 PO SCH (09:20)
[2018-08-21] MEDS: MIRALAX PO SCH (09:20)
[2018-08-21] MEDS: KEFLEX PO SCH (09:20)
[2018-08-21] MEDS: PRILOSEC PO SCH (09:20)
[2018-08-21] MEDS: CORDARONE PO SCH (09:21)
[2018-08-21] MEDS: DULCOLAX PR SCH (09:21)
[2018-08-21] MEDS: PERIDEX MT SCH (09:21)
[2018-08-21 11:41] VITALS: BP 107/41
--- NOTE | 2018-08-21 12:11 | DISCHARGE SUMMARY ---
ADMISSION DATE: 08/13/2018 DISCHARGE DATE: 08/21/2018 DISCHARGE DISPOSITION: To [facility] and [facility]. DISCHARGE CONDITION: Hemodynamically stable, alert, oriented x3. She is denying any nausea or vomiting. She has mild right upper quadrant abdominal pain. She is tolerating diet well. She is passing gas. She denies any hematuria. DISCHARGE DIAGNOSES: 1. Acute kidney injury. 2. Acute obstructive uropathy. 3. Left ureteropelvic junction nephrolithiasis. 4. Left acute pyelonephritis and left hydronephrosis. 5. Status post cystoscopy, temporary placement of left ureteric stent and then lithotripsy of stone with removal of stent. 6. Nausea, vomiting, and persistent abdominal pain in the setting of symptomatic nephrolithiasis. 7. Cholelithiasis without any signs of acute cholecystitis. 8. Left hip pain with delayed healing of left hip fracture after surgery, which was repaired in April 2018. OTHER DIAGNOSES: 1. Chronic diastolic congestive heart failure. 2. Mild aortic stenosis. 3. Paroxysmal atrial fibrillation, on Xarelto. 4. Osteoporosis. 5. Chronic anemia. CONSULTATION DURING HOSPITAL ADMISSION: Urology, Dr. Mike. PROCEDURES DURING HOSPITAL ADMISSION: On 08/14/2018, she underwent cystoscopy, placement of 6- Iranian, 24 cm left ureteral stent for left ureteropelvic junction stone with obstruction. On 08/20/2018, she underwent left extracorporeal shock wave lithotripsy and cystoscopy with left ureteral stent removal. PHYSICAL EXAMINATION: Vital signs: At the time of discharge, temperature 97.7 degrees, pulse 60, respiratory rate 16, blood pressure 110/50, saturating 100% on 2 L nasal cannula. General: Does not appear in any acute distress. HEENT: Oral cavity is moist. Lungs: Air entry bilaterally equal. Mild crackles in infrascapular region. Cardiovascular: S1, S2 normal. Systolic murmur affecting the right 2nd intercostal space. No rub or gallop. Abdomen: Obese, soft, mildly tender in right upper quadrant without any guarding, rigidity, or rebound, and negative Blanco signs. Extremities: Mild bilateral lower extremities edema. Neurologic: She is alert and oriented x3. DISCHARGE MEDICATIONS: 1. Docusate 100 mg at nighttime. 2. Vitamin B12, 3000 mcg daily. 3. Amiodarone 200 mg daily. 4. Cholecalciferol 2000 units daily. 5. Ferrous sulfate 325 mg daily. 6. Furosemide 40 mg daily. 7. Bisacodyl 10 mg per rectal b.i.d. 8. Cephalexin 500 mg every 12 hours for 10 days for acute pyelonephritis. 9. Milk of magnesia 30 mL p.o. daily as needed for constipation. 10. MiraLAX 17 g p.o. daily. 11. Oxycodone immediate release 5 mg every 8 hours, 10 tablets have been prescribed for severe abdominal pain. 12. Acetaminophen 650 mg every 6 hours as needed for pain less than 7 on 10. 13. Rivaroxaban 20 mg p.o. daily to be started on 08/23/2018 for her paroxysmal atrial fibrillation. 14. Zofran 4 mg IV every 4 hours as needed for nausea and vomiting. SIGNIFICANT IMAGING DURING HOSPITAL ADMISSION: 1. Femur x-ray on 08/13/2018 had incomplete union of recent fixation of left hip fracture. 2. Abdomen and pelvis CT on August 13 had bilateral nephrolithiasis with 11 mm obstructing stone at left ureteropelvic junction, associated left hydronephrosis. Distended gallbladder with cholelithiasis without any surrounding inflammatory changes. 3. Echocardiogram on 08/14/2018 had suggested left ventricular ejection fraction of 55%. Normal right ventricular systolic function. Calcified aortic valve with mild aortic stenosis. HOSPITAL COURSE SUMMARY: Ms. Manzo is an 83-year-old lady who presented on 08/13/2018 with chief complaints of left leg pain. Apparently, patient did have repair of her left femoral fracture in April 2018 and her pain had become intractable progressively. She also had vomiting and decreased appetite with abdominal tenderness. While in the emergency room, she was found to have acute kidney injury, volume depletion, and the CT scan of the abdomen and pelvis had detected nephrolithiasis with ureteropelvic junction left-sided stone with hydronephrosis. So she was admitted for suspected acute pyelonephritis and Urology was consulted. She was started on intravenous antibiotics and initially she underwent left ureteric stent placement. Urine culture grew E coli which was sensitive to cephalexin. Her antibiotics were changed to cefazolin intravenously and she was monitored inside the hospital. She did have a fecal impaction which was probably contributing to her nausea and vomiting and she was started on stool softeners, following which her nausea and vomiting had improved. She eventually underwent a repeat surgical procedure with removal of the stent and extracorporeal shockwave lithotripsy a few days later, which she tolerated well. DISCHARGE CONDITION: At the time of discharge, she is tolerating diet well though her appetite is low. She is not complaining of nausea and vomiting. She should be okay to be discharged to rehab on oral antibiotic. DISCHARGE INSTRUCTIONS: The patient and her son on phone were extensively counseled about need for following up with orthopedic doctor, need for follow up with general surgeon and discuss about cholecystectomy. TIME SPENT: More than 30 minutes was spent in discharging this patient. Discharge instructions were explained to in detail her son and all his questions were answered appropriately. cc: Mynor Colunga MD MTDD
[2018-08-22] MEDS ORDERED: XARELTO PO SCH (17:00)
== END 2018-08-21 13:40 | DRG 660 ==
LOC: SUPCPDRO → ED 10:13 → SUATTDRO 17:22 → 4N 17:22
PROVIDERS: ATTEND Internal Medicine
PROC: UR.ESWL (2018-08-20 08:07)
CPT/HCPCS: 71010; 71045; 73552; 73590; 74000; 74018; 74019; 74020; 74176; 76000; 80048; 80053; 81001; 82805; 83605; 83690; 83735; 83880; 84100; 84439; 84443; 85025; 85610; 85730; 87040; 87077; 87088; 87186; 93306; 94761; 96361; 96365; 96375; 97162; 97530; 99285; A9270; J0690; J0696; J1885; J1940; J2270; J2405; J7040

== ENCOUNTER 2019-06-01 14:56 | Inpatient (IN) ==
[2019-06-01 15:56] LABS: BASO# 0.14 X1000 (0.0-0.2); BASO% 0.3 % (0.0-0.8); EOS# 0.09 X1000 (0.0-0.7); EOS% 0.2 % (0.0-10.0); HEMATOCRIT 47.8 % (37.0-47.0); HEMOGLOBIN 15.2 g/dL (12.0-16.0); IMM GRAN# 1.09 X1000 (0.0-0.04); IMM GRAN% 2.6 % (0.0-0.5); LYMPH# 1.58 X1000 (1.2-3.4); LYMPH% 3.7 % (20.5-51.1); MCH 30.5 PG (27-31); MCHC 31.8 g/dL (33-37); MONO# 3.05 X1000 (0.11-0.59); MONO% 7.2 % (1.7-9.3); MPV 10.2 FL (7.4-10.4); NEUT# 36.61 X1000 (1.4-6.5); PLT 437 X1000 (130-400); RBC 4.98 XMIL (4.2-5.4); RDW 15.8 % (11.5-14.5); WBC 42.56 X1000 (4.8-10.8)
--- NOTE | 2019-06-01 16:06 | Diag Imaging Result Doc PS360 ---
EXAM: KUB ABDOMEN HISTORY: abd pain, N/V TECHNIQUE: Single view COMPARISON: 08/19/2018 FINDINGS: Nonspecific bowel gas pattern. No organomegaly. Orthopedic replacement of the left hip. Right femoral cirilo. No abnormal abdominal calcifications. IMPRESSION: Negative exam Electronically signed by Rafa Garrison 06/01/2019 4:03 PM
[2019-06-01 16:08] LABS: ALB/GLOB RATIO 1.1; ALBUMIN 2.9 g/dL (3.5-5.0); CALCIUM 9.1 mg/dL (8.8-10.2); CREATININE 1.1 mg/dL (0.5-0.9); POTASSIUM 4.5 mmol/L (3.5-5.1); TOTAL BILIRUBIN 0.26 mg/dL (0.20-1.00); TOTAL PROTEIN 5.5 g/dL (6.3-8.3)
[2019-06-01 16:09] LABS: INR 1.56
[2019-06-01 16:10] LABS: PTT 32.1 Seconds (22.3-41.8)
[2019-06-01 16:31] LABS: BANDS 2 % (0-1); EOS 2 % (1-10); LYMPHS 5 % (21-51); MONO 6 % (1-9); SEGS 85 % (42-75)
--- NOTE | 2019-06-01 16:33 | PROVIDER DOCUMENTATION ---
HPI-Abdominal Pain/GI Problem - General Chief Complaint: Abdominal Pain Stated Complaint: N/V Time Seen by Provider: 06/01/19 15:30 Source: patient, EMS Allergies/Adverse Reactions: Patient Allergies Allergy/AdvReac Type Severity Reaction Status Date / Time No Known Allergies Allergy Verified 11/08/17 00:30 Home Medications: Home Medication List Medication Instructions Recorded Confirmed Last Taken Type Amiodarone [Cordarone] 200 mg PO DAILY 07/30/13 08/13/18 03/10/17 07:00 History Cholecalciferol (Vitamin D3) 2,000 unit PO DAILY 10/21/16 08/13/18 03/09/17 07:00 History [D3-2000] Cyanocobalamin (Vitamin B-12) 3,000 mcg PO DAILY 10/21/16 08/13/18 03/09/17 12:00 History [B-12] Ferrous Sulfate [Iron] 325 mg PO DAILY 02/14/17 08/13/18 02/13/17 07:00 History Polyethylene Glycol 3350 [Miralax] 17 gm PO DAILY #14 powder, packet 03/21/17 08/13/18 Unknown Rx Acetaminophen [Tylenol] 650 mg PO Q6H PRN PRN tab 05/15/18 08/13/18 Unknown Rx Magnesium Hydroxide [Milk of 30 ml PO DAILY PRN PRN udc 05/15/18 08/13/18 Unknown Rx Magnesia] Docusate Sodium [Colace] 100 mg PO QHS 08/13/18 08/13/18 Unknown History Furosemide [Lasix] 40 mg PO DAILY 08/13/18 08/13/18 Unknown History Bisacodyl [Dulcolax] 10 mg SD BID supp 08/21/18 Unknown Rx CephALEXIN [Keflex] 500 mg PO Q12H #40 cap 08/21/18 Unknown Rx Ondansetron [Zofran] 4 mg IV Q4H PRN PRN vial 08/21/18 Unknown Rx Oxycodone I.r. [Oxy Ir] 5 mg PO Q8H PRN #10 tab 08/21/18 Unknown Rx Rivaroxaban [Xarelto] 20 mg PO DAILY #0 08/21/18 08/13/18 Unknown Rx - History of Present Illness-ABD Nature of Presenting Problems: [id number] presents from [facility] with a 3 day ho abdominal pain, nausea, vomiting and diarrhea. Patient states she can barely eat anything. Patient was noted to have an elevated WBC count today and was sent over by the MD. Patient is non-toxic in appearance. Abdominal Pain Onset Location: reports: generalized abdomen Pain Radiation: reports: no radiation Quality of Pain: reports: cramping Severity in ED: reports: moderate Onset/Duration: reports: 3 days ago Timing: reports: still present Activities at Onset: reports: none Exposure to sick contacts?: Yes (lives in rehab facilty) Modifying Factors: improves with: nothing Associated Symptoms: reports: diarrhea, nausea, weakness Last BM: unsure Dark Stools Present?: reports: other (unknown) Rectal Bleeding: reports: other (unknown) Emesis Description: reports: other (unknown) Bruising or Bleeding Gums?: No Similar Symptoms Previously?: No Recently seen or treated by another doctor?: No Review of Systems - Adult - REVIEW OF SYSTEMS - ADULT Constitutional: reports: no symptoms reported. denies: chills, fever Eyes: reports: no symptoms reported Ears, Nose, Mouth & Throat: reports: no symptoms reported Cardiovascular: reports: no symptoms reported Respiratory: reports: no symptoms reported. denies: cough, shortness of breath Gastrointestinal: reports: abdominal pain, diarrhea, nausea, vomiting Genitourinary: reports: no symptoms reported Musculoskeletal: reports: no symptoms reported Integumentary: reports: no symptoms reported Neurological: reports: no symptoms reported. denies: dizziness/vertigo, numbness Psychiatric: reports: no symptoms reported Endocrine: reports: no symptoms reported Hematologic/Lymphatic: reports: no symptoms reported Allergic/Immunologic: reports: no symptoms reported All Other Systems: Reviewed and Negative Past History - Adult - PAST MEDICAL HISTORY-ADULT Review of Records: reports: Old Records Reviewed, Nursing Assessment Review, Medications Reviewed, Social history reviewed & non-contributory. Major Childhood Illnesses: reports: denies history Cardiovascular: reports: A-Fib, CHF, HTN, hyperlipidemia, pacemaker Respiratory: reports: COPD Gastrointestinal: reports: denies history Obstetrical/Gynecological: reports: denies history Genitourinary: reports: denies history Musculoskeletal: reports: osteoporosis Neurological: reports: denies history Endocrine/Immune: reports: denies history Other Conditions: reports: denies history - PRIOR SURGERIES/PROCEDURES Surgical/Procedure History: reports: orthopedic (extremity), joint replacement - IMMUNIZATION STATUS Childhood Immunizations: See Nurse Assessment Flu Vaccine: See Nurse Assessment - FAMILY HISTORY Family History: reviewed, not pertinent - SOCIAL HISTORY Smoking: denies Substance Use: denies Living Situation: care facility ([facility]) Physical Exam-General - PHYSICAL EXAM-ADULT Initial Vital Signs Reviewed: Yes - CONSTITUTIONAL General Appearance: appears well, alert, no apparent distress, mild distress - EYES Eyes: PERRL/EOMI, pink conjunctivae - HEAD, EARS, NOSE, MOUTH & THROAT HENMT: normocephalic/atraumatic, moist mucous membranes, normal ENT inspection - NECK Neck: non-tender, full range of motion - RESPIRATORY Respiratory: chest non-tender, lungs clear, normal breath sounds, no pleuratic chest pain, no respiratory distress, no accessory muscle use - CARDIOVASCULAR Cardiovascular: normal peripheral pulses, regular rate, rhythm, no edema, no gallop, no JVD, systolic murmur - GASTROINTESTINAL (ABDOMEN) Abdominal Exam: soft, tenderness - LYMPHATIC Lymphatic: no adenopathy - MUSCULOSKELETAL Extremity: normal range of motion, non-tender, pedal edema, other (scabbed area to left lower ext) Peripheral Pulses: radial (R): 2+, radial (L): 2+, dorsalis-pedis (R): 2+, dorsalis-pedis (L): 2+ - SKIN Integumentary: normal color, warm/dry - NEUROLOGIC Neurologic: grossly normal - PSYCHIATRIC Psych/Mental Status: normal mood/affect, oriented x 3 Progress - PLAN OF CARE/RESULTS Progress/Plan/Lab Results: Vital Signs - 8 hr 06/01/19 15:00 Temperature 98.3 F Pulse Rate 62 Respiratory Rate 16 Blood Pressure 136/63 O2 Sat by Pulse Oximetry 97 Laboratory Results - last 24 hr 06/01/19 06/01/19 06/01/19 15:07 15:07 15:35 WBC 42.56 H RBC 4.98 Hgb 15.2 Hct 47.8 H MCV 96.0 MCH 30.5 MCHC 31.8 L RDW Std Deviation 15.8 H Plt Count 437 H MPV 10.2 Immature Gran % (Auto) 2.6 H Neut % (Auto) 86.0 H Lymph % (Auto) 3.7 L Prentiss % (Auto) 7.2 Eos % (Auto) 0.2 Baso % (Auto) 0.3 Immature Gran # (Auto) 1.09 H Neut # (Auto) 36.61 H Lymph # (Auto) 1.58 Prentiss # (Auto) 3.05 H Eos # (Auto) 0.09 Baso # (Auto) 0.14 PT 19.0 H INR 1.56 PTT (Actin FS) 32.1 Sodium 134 L Potassium 4.5 Chloride 93 L Carbon Dioxide 25 Anion Gap 16 BUN 30 H Creatinine 1.1 H Estimated GFR/1.73 m2 47 BUN/Creatinine Ratio 27 Glucose 128 H Calculated Osmolality 276 Calcium 9.1 Total Bilirubin 0.26 AST 16 ALT 9 L Alkaline Phosphatase 151 H Total Protein 5.5 L Albumin 2.9 L Globulin 2.6 Albumin/Globulin Ratio 1.1 Orders Category Date Time Status CHEST-PORTABLE [RAD] Stat Exams 06/01/19 16:26 Ordered KUB ABDOMEN [RAD] Stat Exams 06/01/19 15:26 Completed C REACTIVE PROT QUANT [CHEM] Stat Lab 06/01/19 16:26 Uncollected CBC WITH DIFF [HEME] Stat Lab 06/01/19 15:07 Results COMPREHENSIVE METABOLIC PANEL [CHEM] Stat Lab 06/01/19 15:35 Completed LACTATE, PLASMA [CHEM] Stat Lab 06/01/19 15:07 Received PROTIME WITH INR [COAG] Stat Lab 06/01/19 15:07 Completed PTT [COAG] Stat Lab 06/01/19 15:07 Completed SED RATE [HEME] Stat Lab 06/01/19 16:26 Uncollected UA Reflex [URINALYSIS W/POSS RFLX CULT] [URINALYSIS] Lab 06/01/19 15:19 Uncollected Stat Patient agrees with POC rendered today. Result Diagrams: 06/01/19 15:07 06/01/19 15:35 - XRAY 1 XRAY Study: Abdomen Impression: See EMR Report (FINDINGS: Nonspecific bowel gas pattern. No organomegaly. Orthopedic replacement of the left hip. Right femoral cirilo. No abnormal abdominal calcifications. IMPRESSION: Negative exam Electronically signed by Rafa Garrison 06/01/2019 4:03 PM) 2 XRAY Study: Chest Impression: See EMR Report (FINDINGS: The lungs are well expanded. The heart is enlarged. There is a left pacemaker. Mild vascular distention. No consolidation. No pleural effusions identified. IMPRESSION: Cardiomegaly with mild pulmonary edema Electronically signed by Rafa Garrison 06/01/2019 5:04 PM) - CT/MRI 1 CT Study: Abdomen, Pelvis Impression: See EMR Report (FINDINGS: There is a tiny amount of fluid about the liver. There is fatty infiltration of the liver. No splenomegaly. Normal pancreas. There is thickening to the adrenal glands. There are several stones within an overly distended gallbladder. The gallbladder measures approximately 6.0 x 10.5 cm. There are scattered renal cysts. The largest is on the left measuring 4.5 cm. There is cortical thinning to the left kidney. No hydroneph rosis. No aortic aneurysm. Severe atherosclerosis. Stable adrenal thickening. There is thickening to the colonic wall throughout. The appendix is also thickened, but no definite inflammation about the pancreas although there is fluid in the right paracolic gutter. No free air. No abscess. Moderate fluid in the pelvis. There is a Guzman catheter in the urinary bladder. Orthopedic replacement of left hip. The bones are osteopenic. Mild compression fractures to the L1 and L3 vertebra. IMPRESSION: 1.Diffuse colitis. Appendiceal thickening and prominence is likely due to the adjacent colitis. 2 .Cholelithiasis with overly distention of the gallbladder. This is similar to the prior exam. 3.Renal cysts with left renal atrophy and cortical thinning. Nonobstructing left renal stones. 4.Fatty infiltration of the liver 5.Severe atherosclerosis This exam was performed using automated exposure control, adjustment of mA or kV according to patient size, and/or use of iterative reconstruction technique. Electronically signed by Rafa Garrison 06/01/2019 8:07 PM) - CONSULTS/PCP/HOSPITALIST Notification #1 *Consult/PCP/Hospitalist*: Dr. Forbes Time Discussed: 21:01 Consult Disposition: Admit Departure - Departure Date of Disposition Decision: 06/01/19 Time of Disposition Decision: 20:59 DIAGNOSIS: Clostridium difficile colitis, Volume depletion, gastrointestinal loss Leukocytosis Qualifiers: Leukocytosis type: unspecified Qualified Code(s): D72.829 - Elevated white blood cell count, unspecified Disposition: ADMITTED INPATIENT 09 Certified Medical Emergency: Emergent Condition: Fair Referrals and Follow-Ups: None,PCP [Primary Care Provider] - - Critical Care Note This patient required my direct & personal management of CC.: Yes Total Time (mins): 30 Critical Care Statement: This patient required my direct personal management to treat or rule out processes, the absence of which, could potentiallly result in sudden, clinically significant life or limb threatening deterioration. Attestation - Physician/ RASHID Attestation Patient care was provided by Advanced Practice Provider:: Yes Advanced Practice Provider:: Debbie Guardado Advanced Practice Provider documentation review:: The Mid-level provider documentation, treatment plan and medical decision making was reviewed by the physician who agrees with all treatment and medical decision making by the MLP. The physician spent face to face time with patient:: Yes Advanced Practice Provider documentation review:: Supervising physician onsite and consulted in the evaluation and care of this patient. The physician did have a face to face encounter with the patient.
--- NOTE | 2019-06-01 17:06 | Diag Imaging Result Doc PS360 ---
EXAM: CHEST-PORTABLE HISTORY: leukocytosis TECHNIQUE: Single view COMPARISON: 08/15/2018 FINDINGS: The lungs are well expanded. The heart is enlarged. There is a left pacemaker. Mild vascular distention. No consolidation. No pleural effusions identified. IMPRESSION: Cardiomegaly with mild pulmonary edema Electronically signed by Rafa Garrison 06/01/2019 5:04 PM
[2019-06-01] MEDS ORDERED: VANCOMYCIN IV PER PHARMACY MISC SCH (17:30)
[2019-06-01] MEDS ORDERED: ZOSYN 4.5 GM in NS 100 ML IV ONE (17:30)
[2019-06-01 17:49] LABS: URINE SOURCE CLEAN CATCH
[2019-06-01 17:52] LABS: BILIRUBIN URINE NEGATIVE (NEGATIVE); BLOOD URINE MODERATE (NEGATIVE); COLOR YELLOW; GLUCOSE URINE NEGATIVE (NEGATIVE); KETONE URINE NEGATIVE (NEGATIVE); LEUKOCYTES URINE NEGATIVE (NEGATIVE); NITRITE URINE NEGATIVE (NEGATIVE); PROTEIN URINE 50 mg/dL (NEGATIVE); SP GRAVITY URINE 1.025; TURBIDITY URINE CLEAR (CLEAR); UROBILINOGEN URINE NORMAL (NORMAL)
[2019-06-01 17:54] LABS: UR EPITHELIAL CELLS <10 /HPF (<10); URINE BACTERIA NEGATIVE /HPF; URINE RBC TNTC /HPF (<10); URINE WBC <10 /HPF (<10)
[2019-06-01] MEDS ORDERED: VANCOMYCIN 1,800 MG in NS 500 ML IV ONE (19:00)
[2019-06-01] MEDS ORDERED: NS 1,000 ML, NS 1,000 ML IV ONE ×2 (20:09)
--- NOTE | 2019-06-01 20:10 | Diag Imaging Result Doc PS360 ---
EXAM: CT ABD/PELVIS W/IV CONT ONLY HISTORY: colitis TECHNIQUE: CT abdomen and pelvis with intravenous contrast. No oral contrast given. COMPARISON: 08/13/2018 FINDINGS: There is a tiny amount of fluid about the liver. There is fatty infiltration of the liver. No splenomegaly. Normal pancreas. There is thickening to the adrenal glands. There are several stones within an overly distended gallbladder. The gallbladder measures approximately 6.0 x 10.5 cm. There are scattered renal cysts. The largest is on the left measuring 4.5 cm. There is cortical thinning to the left kidney. No hydronephrosis. No aortic aneurysm. Severe atherosclerosis. Stable adrenal thickening. There is thickening to the colonic wall throughout. The appendix is also thickened, but no definite inflammation about the pancreas although there is fluid in the right paracolic gutter. No free air. No abscess. Moderate fluid in the pelvis. There is a Guzman catheter in the urinary bladder. Orthopedic replacement of left hip. The bones are osteopenic. Mild compression fractures to the L1 and L3 vertebra. IMPRESSION: 1.Diffuse colitis. Appendiceal thickening and prominence is likely due to the adjacent colitis. 2.Cholelithiasis with overly distention of the gallbladder. This is similar to the prior exam. 3.Renal cysts with left renal atrophy and cortical thinning. Nonobstructing left renal stones. 4.Fatty infiltration of the liver 5.Severe atherosclerosis This exam was performed using automated exposure control, adjustment of mA or kV according to patient size, and/or use of iterative reconstruction technique. Electronically signed by Rafa Garrison 06/01/2019 8:07 PM
[2019-06-01] MEDS ORDERED: NS 2,000 ML ONE (20:19)
[2019-06-01] MEDS ORDERED: ZOFRAN IV PRN (21:41)
[2019-06-01] MEDS ORDERED: NS 1,000 ML IV SCH (21:45)
[2019-06-01] MEDS: PERCOCET-10 PO PRN (22:45)
[2019-06-01] MEDS ORDERED: VANCOCIN PO ONE (23:00)
[2019-06-02] MEDS: VANCOCIN PO SCH ×5 (00:57→22:47)
[2019-06-02 04:11] LABS: BASO% 0.3 % (0.0-0.8); EOS# 0.11 X1000 (0.0-0.7); EOS% 0.3 % (0.0-10.0); HEMATOCRIT 42.6 % (37.0-47.0); HEMOGLOBIN 13.4 g/dL (12.0-16.0); IMM GRAN# 0.66 X1000 (0.0-0.04); IMM GRAN% 1.8 % (0.0-0.5); LYMPH# 1.35 X1000 (1.2-3.4); LYMPH% 3.7 % (20.5-51.1); MCH 30.5 PG (27-31); MCHC 31.5 g/dL (33-37); MCV 96.8 FL (81-99); MONO# 2.12 X1000 (0.11-0.59); MONO% 5.8 % (1.7-9.3); MPV 9.9 FL (7.4-10.4); NEUT# 32.15 X1000 (1.4-6.5); NEUT% 88.1 % (42.2-75.2); PLT 390 X1000 (130-400); RDW 15.8 % (11.5-14.5); WBC 36.49 X1000 (4.8-10.8)
[2019-06-02 04:12] LABS: INR 1.22; PROTIME 15.6 Seconds (11.0-16.0)
[2019-06-02 04:13] LABS: PTT 25.3 Seconds (22.3-41.8)
[2019-06-02 04:26] LABS: AGAP 9; ALB/GLOB RATIO 0.7; ALBUMIN 2.2 g/dL (3.5-5.0); ALKALINE PHOSPHATASE 103 U/L (32-104); BUN 23 mg/dL (8-22); CALCIUM 8.2 mg/dL (8.8-10.2); CHLORIDE 99 mmol/L (98-107); COSMO 276; CREATININE 0.8 mg/dL (0.5-0.9); ESTIMATED GFR > 60; GLUCOSE 110 mg/dL (70-104); GOT 12 U/L (10-30); GPT 6 U/L (10-36); POTASSIUM 4.1 mmol/L (3.5-5.1); SODIUM 136 mmol/L (136-145); TCO2 28 mmol/L (25-35); TOTAL PROTEIN 5.5 g/dL (6.3-8.3)
[2019-06-02] MEDS ORDERED: DUONEB (A & A) INH PRN (06:49)
--- NOTE | 2019-06-02 07:06 | HISTORY AND PHYSICAL ---
CHIEF COMPLAINT: Nausea and vomiting with abdominal pains. HISTORY OF PRESENT ILLNESS: Ms. Deanna Manzo is an 84-year-old female who has a history of multiple medical conditions, including atrial fibrillation, congestive heart failure, hyperlipidemia, history of pacemaker implantation, hypertension, COPD. She presents to the hospital because of nausea, vomiting, as well as abdominal pains. This has been going on for about at least 6 days. The patient has also had associated diarrhea. She moves her bowels at least twice a day. She denies any hematochezia. When she presented to the emergency room, her white count was about 42.56, and stool for Clostridium difficile came back positive. Apparently, the patient had been on antibiotics for a urinary tract infection. Patient now admitted to the floor for further management. PAST MEDICAL HISTORY: Atrial fibrillation, congestive heart failure, hypertension, osteoporosis, macular degeneration, sick sinus syndrome with pacemaker in place, hyperlipidemia, COPD, history of small bowel tumor, gallstones, nephrolithiasis. 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 FAMILY HISTORY: Positive for cancer. SOCIAL HISTORY: No history of cigarette smoking. No alcohol or drug use. ALLERGIES: No known medication allergies. MEDICATIONS: Include the following: Amiodarone 200 mg p.o. once a day, vitamin D 2000 units p.o. daily, cyanocobalamin 3000 units once a day, ferrous sulfate 325 mg p.o. once a day, MiraLAX 17 grams daily, acetaminophen 650 mg every 6 hours p.r.n., magnesium hydroxide 30 mL p.o. daily, docusate 100 mg p.o. daily, Lasix 40 mg p.o. once a day, bisacodyl 10 mg p.o. twice a day, cephalexin 500 mg p.o. every 12 hours, Zofran 4 mg every 6 hours p.r.n., oxycodone 5 mg p.r.n., Xarelto 20 mg p.o. once a day. REVIEW OF SYSTEMS: Constitutional: No fever. PROOFER BLACK AND WHITE: No headaches. Eyes: Has blurred vision. ENT: No sinus problem or hearing loss. Cardiovascular: No chest pain. Genitourinary: Has dysuria. Dermatology: No skin lesions. Hematology: No bleeding problems. Musculoskeletal: Has joint pain. Endocrinology: No thyroid disease or diabetes. Psychiatric: No anxiety or depression. Allergy/Immunology: No symptoms suggestive of allergic rhinitis. PHYSICAL EXAMINATION: VITAL SIGNS: Temperature 98.2 degrees, pulse 65, respirations 20, blood pressure 141/70, oxygen saturation is 95%. HEENT: Atraumatic, normocephalic. She is anicteric. No oral lesions noted. NECK: No lymphadenopathy or thyromegaly. CARDIOVASCULAR: S1, S2. RESPIRATORY: Has evidence of good air entry bilaterally. ABDOMEN: Soft, nontender. No masses felt. EXTREMITIES: Has trace edema in the lower extremities. CENTRAL NERVOUS SYSTEM: No obvious focal deficit noted. IMAGING AND LABORATORY DATA: WBC is 42.56, hematocrit is 47.8, with a platelet count of 437,000. INR is 1.56. Sodium is 134, potassium 4.5, chloride is 93, bicarb 25, BUN is 30, creatinine is 1.1. CT scan of the abdomen and pelvis shows evidence of diffuse colitis. There is appendiceal thickening and prominence that is likely due to adjacent colitis. There is evidence of cholelithiasis with overdistention of the gallbladder. There is also presence of renal cyst with left renal atrophy and cortical thickening. Fatty infiltration of the liver. Severe atherosclerosis. X-ray of the chest shows cardiomegaly with mild pulmonary edema. Stool for Clostridium difficile: Toxin A and B positive. ASSESSMENT AND PLAN: 1. Clostridium difficile colitis. Maintain the patient nothing by mouth, except for clear liquids. Start oral vancomycin 125 mg by mouth every 6 hours. Follow up on the patient's clinical progression. 2. Acute congestive heart failure. Monitor intakes and outputs, as well as daily weights. Diuretics as needed. 3. Atrial fibrillation. Continue amiodarone as well as Rivaroxaban. 4. Chronic obstructive pulmonary disease. Nebulized bronchodilators as needed. 5. History of pacemaker implantation. Aware. 6. History of osteoporosis. Await followup with primary care physician in the outpatient. 7. Hypertension. Optimize blood pressure control. 8. History of macular degeneration. Aware. 9. Deep vein thrombosis prophylaxis. The patient is on Xarelto. 10. Gastrointestinal prophylaxis. Proton pump inhibitor. cc: Jon Forbes MD
[2019-06-02] MEDS ORDERED: DUONEB (A & A) INH SCH (07:30)
--- NOTE | 2019-06-02 07:52 | EKG Report ---
Test Performed on : 06/02/2019 07:36:27 AM Test Reason : chf Blood Pressure : / mmHG Vent. Rate : 063 BPM Atrial Rate : 063 BPM P-R Int : 174 ms QRS Dur : 086 ms QT Int : 428 ms P-R-T Axes : 005 -22 015 degrees QTc Int : 437 ms Atrial-paced rhythm Moderate voltage criteria for LVH, may be normal variant Possible Lateral infarct , age undetermined Cannot rule out Inferior infarct , age undetermined Abnormal ECG When compared with ECG of 13-MAY-2018 07:06, Borderline criteria for Lateral infarct are now present Minimal criteria for Inferior infarct are now present Confirmed by Kojo MIN, Timur Ogden ([id number]) on 06/02/2019 9:58:17 AM
--- NOTE | 2019-06-02 08:34 | GENERAL SURGERY CONSULTATION ---
DATE: 06/02/2019 HISTORY OF PRESENT ILLNESS: Ms. Manzo is admitted with nausea, vomiting, abdominal pain. She is known to me from previous duodenal resection for cancer. She has multiple medical problems, but this time she is admitted with abdominal pain, nausea and vomiting and diarrhea. She apparently has been tested for Clostridium difficile and it is positive. A CT scan shows diffuse colitis. PAST MEDICAL HISTORY: Her past history is pertinent for atrial fibrillation, congestive heart failure, hypertension, sick sinus syndrome with pacemaker, hyperlipidemia, COPD, duodenal adenocarcinoma, gallstones, and kidney stones. PAST SURGICAL HISTORY: Her previous surgery includes a total knee arthroplasty, right hip surgery, left hip surgery, left wrist surgery, duodenal resection for cancer, and a permanent pacemaker implantation. FAMILY HISTORY: Pertinent for malignancy. SOCIAL HISTORY: She denies smoking history. Denies alcohol and illicit drug use. Her daughter- in-law is a nurse. MEDICATIONS: Her home medications are listed and include Xarelto. ALLERGIES: She has no known drug allergies. REVIEW OF SYSTEMS: Negative in all the 10 subsystems except as noted above with the abdominal complaints, nausea, vomiting, and diarrhea. PHYSICAL EXAMINATION: Vital Signs: She is afebrile, heart rate 60, respiratory rate 18, blood pressure 128/52. Lungs: Bilateral breath sounds are present. Heart: Regular rate and rhythm. Abdomen: Soft, but diffusely tender. She has diarrhea currently. Extremities: She has trace peripheral edema. Neurologic: She is confused and does not know that she is in the hospital. LABORATORY: White count is 36,000 today, hemoglobin 13.4, hematocrit 42.6. PLAN: There is no operative intervention recommended. Her gallstones are asymptomatic. Her symptoms are related to her Clostridium difficile colitis. I do not recommend any operative intervention at this time. cc: Nils Bridges MD
[2019-06-02] MEDS: VENTOLIN HFA INH SCH ×3 (09:03→21:14)
[2019-06-02] MEDS: VITAMIN B-12 PO SCH (09:21)
[2019-06-02] MEDS: XARELTO PO SCH (09:22)
[2019-06-02] MEDS: CORDARONE PO SCH (09:22)
[2019-06-02] MEDS: PERCOCET-10 PO PRN ×3 (09:22→22:47)
[2019-06-02] MEDS: DULCOLAX PR SCH ×2 (09:22→22:48)
[2019-06-02] MEDS: FERROUS SULFATE PO SCH (09:22)
[2019-06-02] MEDS: PRILOSEC PO SCH (09:22)
--- NOTE | 2019-06-02 12:04 | PROGRESS NOTE ---
DATE: 06/02/2019 SUBJECTIVE: Patient reports feeling fine. Apparently since last night she had just 1 bowel movement. No abdominal pain. OBJECTIVE: Vital Signs: Temperature 98.1 degrees, heart rate 59, respiratory rate 18, blood pressure 128/60, O2 saturation 98% on room air. General examination: This is an 84-year-old female, lying in bed in no acute distress. Cardiovascular exam: S1, S2 heard. Irregularly irregular. No murmurs, gallops or rubs noted. Respiratory exam: Clear bilaterally to auscultation. No work of breathing or using accessory muscles. Abdomen: Soft, nontender to palpation. Bowel sounds present. No organomegaly. Extremities: Mild edema in both lower extremities. Peripheral pulses present in both legs. Neurological exam: Patient is alert and oriented x3. Moves 4 extremities. LABORATORY DATA: White cell count 36.49, hemoglobin 13.4, hematocrit 42.6, platelets. 390. BMP normal. Normal renal function. Calcium 8.2. ASSESSMENT AND PLAN: 1. Clostridium difficile colitis. Patient has been started on vancomycin oral 125 mg oral every 6 hours. Considering her elevated white cell count prefer Dificid 200 mg oral twice daily to her current treatment. We will continue to monitor this patient closely. 2. Acute congestive heart failure. I do not think this patient is in any exacerbation. We will continue home medications. 3. Atrial fibrillation. That condition is controlled. Heart rate is under control less than 100. We will continue with amiodarone and Xarelto. 4. Chronic obstructive pulmonary disease. The patient is not in any exacerbation. We will continue to monitor. 5. Hypertension. Blood pressure is under control. We will continue with the same medication. 6. Disposition: We will continue to monitor this patient closely. cc: Prem Durham MD
[2019-06-02] MEDS: DIFICID PO SCH ×2 (12:11→22:47)
[2019-06-02] MEDS: COLACE PO SCH (22:47)
[2019-06-03] MEDS: VENTOLIN HFA INH SCH ×4 (04:23→21:59)
[2019-06-03] MEDS: PRILOSEC PO SCH ×2 (05:57→06:02)
[2019-06-03] MEDS: VANCOCIN PO SCH ×3 (05:57→18:23)
[2019-06-03 07:46] LABS: BASO# 0.15 X1000 (0.0-0.2); BASO% 0.5 % (0.0-0.8); EOS% 2.1 % (0.0-10.0); HEMATOCRIT 46.6 % (37.0-47.0); HEMOGLOBIN 14.3 g/dL (12.0-16.0); IMM GRAN# 0.99 X1000 (0.0-0.04); LYMPH# 1.76 X1000 (1.2-3.4); LYMPH% 5.3 % (20.5-51.1); MCH 30.4 PG (27-31); MCHC 30.7 g/dL (33-37); MCV 98.9 FL (81-99); MONO# 2.22 X1000 (0.11-0.59); MONO% 6.7 % (1.7-9.3); MPV 10.2 FL (7.4-10.4); NEUT# 27.22 X1000 (1.4-6.5); NEUT% 82.4 % (42.2-75.2); PLT 459 X1000 (130-400); RBC 4.71 XMIL (4.2-5.4); RDW 16.3 % (11.5-14.5); WBC 33.04 X1000 (4.8-10.8)
[2019-06-03] MEDS ORDERED: VANCOMYCIN 1,500 MG in NS 250 ML IV SCH (08:00)
[2019-06-03 08:33] LABS: ALBUMIN 2.6 g/dL (3.5-5.0); CALCIUM 9.6 mg/dL (8.8-10.2); CREATININE 0.9 mg/dL (0.5-0.9); PHOSPHORUS 3.5 mg/dL (2.7-4.5)
[2019-06-03] MEDS: VITAMIN B-12 PO SCH (09:50)
[2019-06-03] MEDS: FERROUS SULFATE PO SCH (09:50)
[2019-06-03] MEDS: CORDARONE PO SCH (09:50)
[2019-06-03] MEDS: DIFICID PO SCH (09:51)
[2019-06-03] MEDS: XARELTO PO SCH (09:51)
[2019-06-03] MEDS: DULCOLAX PR SCH ×2 (11:57→21:00)
--- NOTE | 2019-06-03 14:51 | PROGRESS NOTE ---
DATE: 06/03/2019 SUBJECTIVE: I have seen and examined Ms. Manzo today. Ms. Manzo refers to be doing well. Denies any more abdominal pain. She said her GI symptoms have significantly improved. There are 2 bowel movements documented today. OBJECTIVE: Vital signs: Blood pressure is 133/54, pulse of 63, respirations 16, temperature 98.7 degrees. General: Ms. Manzo is an 84-year-old female. She is in a chair. No distress. Mucosa is pink and moist. Anicteric. Acyanotic. Neck: Supple. Chest: Clear to auscultation. There were no crepitations. No rhonchi. Cardiovascular: Regular rate and rhythm. No murmurs, no rubs, no gallops. Gastrointestinal: Abdomen is soft, it is protuberant, but nontender. Bowel sounds present. Extremities: No pedal edema. Central Nervous System: Patient is awake, alert, and oriented. There is no focal deficit. LABORATORY DATA: WBC is down to 33.04, hemoglobin is 14.3, platelet count of 459,000. Chemistry is also reviewed, completely within normal range. Creatinine has normalized. ASSESSMENT: 1. Severe Clostridium difficile colitis on presentation. Patient is currently on vancomycin and fidaxomicin. 2. History of congestive heart failure currently euvolemic. 3. Atrial fibrillation currently rate controlled. Patient is on amiodarone and Xarelto for stroke prophylaxis. 4. History of chronic obstructive pulmonary disease not in exacerbation. 5. Hypertension controlled. 6. Morbid obesity with body mass index of 35.4. 7. Cholelithiasis with distended gallbladder, which seems to be similar to previous imaging. The patient was evaluated by General surgery. At this point, because this is asymptomatic, recommend to follow up on outpatient. 8. Fatty infiltration of the liver secondary to fatty liver disease noted. 9. Severe atherosclerosis noted on imaging. We will start Ms. Manzo on low-dose aspirin and statin. PLAN: In general, I think Ms. Manzo is doing well. We are still waiting for her COVID testing to come back before she is [facility]. cc: Nolan Reeves MD
[2019-06-04] MEDS: DIFICID PO SCH ×3 (00:04→23:35)
[2019-06-04] MEDS: VANCOCIN PO SCH ×5 (00:05→23:35)
[2019-06-04] MEDS: CULTURELLE PO SCH ×3 (00:05→23:35)
[2019-06-04] MEDS: COLACE PO SCH ×2 (00:05→23:43)
[2019-06-04] MEDS: PRAVACHOL PO SCH ×2 (00:05→23:49)
[2019-06-04] MEDS: VENTOLIN HFA INH SCH ×4 (03:26→22:18)
[2019-06-04] MEDS: PRILOSEC PO SCH (06:16)
[2019-06-04 07:14] LABS: BASO% 0.4 % (0.0-0.8); EOS# 0.49 X1000 (0.0-0.7); HEMATOCRIT 43.9 % (37.0-47.0); HEMOGLOBIN 13.5 g/dL (12.0-16.0); IMM GRAN# 1.05 X1000 (0.0-0.04); IMM GRAN% 4.2 % (0.0-0.5); LYMPH# 1.46 X1000 (1.2-3.4); LYMPH% 5.8 % (20.5-51.1); MCH 29.9 PG (27-31); MCHC 30.8 g/dL (33-37); MCV 97.1 FL (81-99); MONO# 1.75 X1000 (0.11-0.59); MPV 9.8 FL (7.4-10.4); NEUT# 20.15 X1000 (1.4-6.5); NEUT% 80.6 % (42.2-75.2); PLT 450 X1000 (130-400); RBC 4.52 XMIL (4.2-5.4)
[2019-06-04 07:28] LABS: AGAP 12; ALBUMIN 2.3 g/dL (3.5-5.0); BUN 14 mg/dL (8-22); CALCIUM 8.8 mg/dL (8.8-10.2); CHLORIDE 101 mmol/L (98-107); COSMO 275; CREATININE 0.8 mg/dL (0.5-0.9); ESTIMATED GFR > 60; GLUCOSE 120 mg/dL (70-104); POTASSIUM 3.7 mmol/L (3.5-5.1); SODIUM 137 mmol/L (136-145); TCO2 24 mmol/L (25-35)
[2019-06-04 07:30] LABS: EOS 1 % (1-10); LYMPHS 5 % (21-51); MONO 6 % (1-9); SEGS 88 % (42-75)
--- NOTE | 2019-06-04 10:15 | Diag Imaging Result Doc PS360 ---
EXAM: KUB ABDOMEN HISTORY: SBO TECHNIQUE: Two views COMPARISON: 06/01/2019 FINDINGS: No bowel obstruction. No organomegaly. There are pelvic phleboliths. IMPRESSION: No bowel obstruction. Electronically signed by Rafa Garrison 06/04/2019 10:13 AM
[2019-06-04] MEDS: D5 1/2 NS + KCL 20 MEQ 1,000 ML IV SCH ×2 (11:15→23:44)
[2019-06-04] MEDS: CORDARONE PO SCH (11:32)
[2019-06-04] MEDS: VITAMIN B-12 PO SCH (11:32)
[2019-06-04] MEDS: ASPIRIN PO SCH (11:33)
[2019-06-04] MEDS: XARELTO PO SCH (11:33)
[2019-06-04] MEDS: FERROUS SULFATE PO SCH (11:33)
[2019-06-04] MEDS: DULCOLAX PR SCH ×2 (11:33→23:45)
[2019-06-04] MEDS: PERCOCET-10 PO PRN (11:34)
--- NOTE | 2019-06-04 15:45 | PROGRESS NOTE ---
DATE: 06/04/2019 SUBJECTIVE: I have seen and examined Ms. Manzo today. Ms. Manzo refers to be feeling ill. Generalized weakness this morning. She said she continues to have regular bowel movement which continues to be diarrhea. She just feels generalized weakness as well. OBJECTIVE: Vital signs: Blood pressure is 128/46, pulse of 60, respiration is 15, temperature 97.7 degrees. Patient was saturating 98% on room air. General: Ms. Manzo is 84-year-old female. She is in bed. She does not seems to be in any cardiopulmonary distress. HEENT: Mucosa is pink, slightly dry. Anicteric. Acyanotic. Neck: Supple. Chest: Clear to auscultation. There was no crepitations. No rhonchi. Cardiovascular: Regular rate and rhythm. No murmurs, no rubs, no gallops. Gastrointestinal: Abdomen is soft, is protuberant. Bowel sounds are present but hypoactive. There is no guarding or rebound. No hepatosplenomegaly. Extremities: No pedal edema. Central Nervous System: Patient was awake, alert, and oriented. LABORATORY DATA: WBC is down to 25.00. Rest of CBC is unremarkable. Chemistry is completely within normal range. KUB this morning shows no bowel obstruction. ASSESSMENT: 1. Severe Clostridium difficile colitis on presentation. Patient is currently on vancomycin and fidaxomicin. WBC is trending down. 2. History of congestive heart failure currently euvolemic. 3. Paroxysmal atrial fibrillation, currently rate controlled. Patient is on amiodarone. She is also on Xarelto for stroke prophylaxis. 4. History of chronic obstructive pulmonary disease currently not in exacerbation. 5. Hypertension controlled. 6. Morbid obesity with body mass index of 35.4. 7. Cholelithiasis with distended gallbladder. The patient has been evaluated by General surgery. At this point, she remains asymptomatic. She will be followed up on outpatient base. 8. Fatty liver disease, most likely from obesity. 9. Severe atherosclerosis noted on imaging. The patient is on low-dose aspirin and statin. 10. 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 11. Clinical volume depletion. Patient has been started on gentle hydration overnight. In general, Ms. Manzo remains stable. This morning, she did complain of some abdominal discomfort. KUB has been unremarkable. WBC is trending down. We are going to continue the current antimicrobial coverage and re-evaluate her in the morning. The patient is also being evaluated by Physical therapy. We will see how much she is able to do today. So far, her COVID results have been negative. cc: Nolan Reeves MD
[2019-06-05] MEDS: VENTOLIN HFA INH SCH ×4 (03:31→21:20)
[2019-06-05] MEDS: VANCOCIN PO SCH ×3 (05:48→21:31)
[2019-06-05] MEDS: PRILOSEC PO SCH ×2 (05:48→06:05)
[2019-06-05 06:16] LABS: BASO# 0.09 X1000 (0.0-0.2); BASO% 0.4 % (0.0-0.8); EOS# 0.44 X1000 (0.0-0.7); EOS% 1.7 % (0.0-10.0); HEMATOCRIT 43.9 % (37.0-47.0); HEMOGLOBIN 13.5 g/dL (12.0-16.0); IMM GRAN# 0.83 X1000 (0.0-0.04); IMM GRAN% 3.2 % (0.0-0.5); LYMPH# 1.47 X1000 (1.2-3.4); LYMPH% 5.8 % (20.5-51.1); MCH 30.3 PG (27-31); MCHC 30.8 g/dL (33-37); MCV 98.4 FL (81-99); MONO# 1.63 X1000 (0.11-0.59); MONO% 6.4 % (1.7-9.3); MPV 9.7 FL (7.4-10.4); NEUT# 21.08 X1000 (1.4-6.5); NEUT% 82.5 % (42.2-75.2); PLT 404 X1000 (130-400); RBC 4.46 XMIL (4.2-5.4); WBC 25.54 X1000 (4.8-10.8)
[2019-06-05 07:25] LABS: AGAP 18; ALBUMIN 2.4 g/dL (3.5-5.0); BUN 10 mg/dL (8-22); CALCIUM 7.9 mg/dL (8.8-10.2); CHLORIDE 101 mmol/L (98-107); COSMO 273; CREATININE 0.8 mg/dL (0.5-0.9); ESTIMATED GFR > 60; GLUCOSE 126 mg/dL (70-104); POTASSIUM 4.3 mmol/L (3.5-5.1); SODIUM 136 mmol/L (136-145); TCO2 17 mmol/L (25-35)
[2019-06-05] MEDS: CULTURELLE PO SCH ×2 (10:51→21:31)
[2019-06-05] MEDS: PERCOCET-10 PO PRN (10:52)
[2019-06-05] MEDS: ASPIRIN PO SCH (10:52)
[2019-06-05] MEDS: DIFICID PO SCH ×2 (10:52→21:31)
[2019-06-05] MEDS: CORDARONE PO SCH (10:53)
[2019-06-05] MEDS: VITAMIN B-12 PO SCH (10:53)
[2019-06-05] MEDS: XARELTO PO SCH (10:53)
[2019-06-05] MEDS: FERROUS SULFATE PO SCH (10:53)
[2019-06-05] MEDS: D5 1/2 NS + KCL 20 MEQ 1,000 ML IV SCH ×2 (10:54→21:31)
--- NOTE | 2019-06-05 17:46 | PROGRESS NOTE ---
DATE: 06/05/2019 SUBJECTIVE: The patient is complaining. She says it is a bad day today. OBJECTIVE: vital signs: Blood pressure is 129/52, heart rate of 61, respiratory rate 18, temperature 98.3 degrees. Cardiovascular: Regular rate and rhythm. Pulmonary: Bilateral breath sounds. Clear to auscultation. Gastrointestinal: Soft, nontender, nondistended. Bowel sounds were positive, hyperactive. STUDIES: Her plain films show nothing. PROBLEMS: 1. Clostridium difficile colitis which is still persistent as far as being symptomatic. Her white count is coming down, but not much more. I am going to bump up her vancomycin for what it is worth to the full 250. She is already on Dificid. She is on Lactinex. We are just going to have to wait until things stabilize. She is still not controlled though. 2. Congestive heart failure which is stable. We will continue to monitor. 3. Atrial fibrillation. She is on amiodarone. She is on Xarelto. Continue to monitor. 4. Cholelithiasis. Until her Clostridium difficile kind of stabilizes, she has been issues there. DISPOSITION: Pending her clinical status. I may add some Questran tomorrow depending on how things look. We will continue to follow. cc: Taye Cornell MD [facility]
[2019-06-05] MEDS: PRAVACHOL PO SCH (21:31)
[2019-06-06] MEDS: D5 1/2 NS + KCL 20 MEQ 1,000 ML IV SCH ×2 (01:38→10:00)
[2019-06-06] MEDS: VANCOCIN PO SCH ×4 (01:38→22:15)
[2019-06-06] MEDS: VENTOLIN HFA INH SCH ×4 (03:18→21:00)
[2019-06-06] MEDS: PRILOSEC PO SCH (06:25)
[2019-06-06 07:13] LABS: AGAP 11; BUN 8 mg/dL (8-22); CALCIUM 7.9 mg/dL (8.8-10.2); CHLORIDE 102 mmol/L (98-107); COSMO 270; CREATININE 0.7 mg/dL (0.5-0.9); ESTIMATED GFR > 60; GLUCOSE 130 mg/dL (70-104); PHOSPHORUS 2.1 mg/dL (2.7-4.5); POTASSIUM 3.9 mmol/L (3.5-5.1); SODIUM 135 mmol/L (136-145); TCO2 22 mmol/L (25-35)
[2019-06-06 07:16] LABS: BASO# 0.05 X1000 (0.0-0.2); BASO% 0.2 % (0.0-0.8); EOS# 0.41 X1000 (0.0-0.7); EOS% 1.5 % (0.0-10.0); HEMATOCRIT 40.4 % (37.0-47.0); HEMOGLOBIN 12.4 g/dL (12.0-16.0); IMM GRAN# 0.53 X1000 (0.0-0.04); IMM GRAN% 1.9 % (0.0-0.5); LYMPH# 1.29 X1000 (1.2-3.4); LYMPH% 4.7 % (20.5-51.1); MCH 30.2 PG (27-31); MCHC 30.7 g/dL (33-37); MCV 98.3 FL (81-99); MONO# 1.67 X1000 (0.11-0.59); MONO% 6.1 % (1.7-9.3); MPV 9.9 FL (7.4-10.4); NEUT# 23.59 X1000 (1.4-6.5); NEUT% 85.6 % (42.2-75.2); PLT 444 X1000 (130-400); RBC 4.11 XMIL (4.2-5.4); RDW 16.1 % (11.5-14.5); WBC 27.54 X1000 (4.8-10.8)
[2019-06-06 07:50] LABS: EOS 2 % (1-10); LYMPHS 7 % (21-51); MONO 5 % (1-9); SEGS 86 % (42-75)
[2019-06-06] MEDS: DIFICID PO SCH ×2 (08:45→22:15)
[2019-06-06] MEDS: CORDARONE PO SCH (08:45)
[2019-06-06] MEDS: FERROUS SULFATE PO SCH (08:45)
[2019-06-06] MEDS: ASPIRIN PO SCH (08:45)
[2019-06-06] MEDS: XARELTO PO SCH (08:45)
[2019-06-06] MEDS: CULTURELLE PO SCH ×2 (08:45→22:15)
[2019-06-06] MEDS: VITAMIN B-12 PO SCH (08:45)
[2019-06-06] MEDS ORDERED: OXYCONTIN PO PRN ×2 (11:17→11:47)
[2019-06-06] MEDS: FLEXERIL PO SCH ×2 (13:30→22:15)
[2019-06-06] MEDS ORDERED: SODIUM PHOSPHATE 40 MEQ in NS 250 ML IV ONE (15:26)
--- NOTE | 2019-06-06 15:43 | PROGRESS NOTE ---
DATE: 06/06/2019 SUBJECTIVE: She feels better today, less diarrhea. OBJECTIVE: Vital signs: Blood pressure 132/44, heart rate of 59, respiratory rate 18, temperature 97.8 degrees. Cardiovascular: Regular rate and rhythm. Pulmonary: Bilateral breath sounds. Clear to auscultation. GI: Soft, nontender, nondistended. Bowel sounds were positive. Extremities: No clubbing or cyanosis. Lymphatic exam: No peripheral edema. Neurological: Nonfocal. LABORATORY DATA: White count 27, hemoglobin and hematocrit 12 and 40, platelets 444,000. Sodium 135, phosphorus 2.1. PROBLEM LIST: 1. Clostridium difficile colitis. She may be a little better. We will continue vancomycin. She is on Dificid, fidaxomicin, but just waiting really for her to improve. I will add some Questran today. 2. Chronic obstructive pulmonary disease is stable currently. 3. Congestive heart failure. Also appears to be compensated. 4. Atrial fibrillation. She is on amiodarone and Xarelto. DISPOSITION: Home once diarrhea has stabilized. cc: Taye Cornell MD
[2019-06-06] MEDS: QUESTRAN PO SCH (22:15)
[2019-06-06] MEDS: PRAVACHOL PO SCH (22:15)
[2019-06-07] MEDS: VANCOCIN PO SCH ×4 (02:30→20:17)
[2019-06-07] MEDS: VENTOLIN HFA INH SCH ×4 (03:30→22:33)
[2019-06-07] MEDS: FLEXERIL PO SCH ×3 (04:26→20:17)
[2019-06-07] MEDS: PRILOSEC PO SCH (07:05)
[2019-06-07 07:26] LABS: HEMATOCRIT 39.2 % (37.0-47.0); HEMOGLOBIN 12.3 g/dL (12.0-16.0); MCH 30.6 PG (27-31); MCHC 31.4 g/dL (33-37); MCV 97.5 FL (81-99); PLT 476 X1000 (130-400); RBC 4.02 XMIL (4.2-5.4); RDW 16.2 % (11.5-14.5); WBC 25.74 X1000 (4.8-10.8)
[2019-06-07 07:44] LABS: AGAP 14; ALBUMIN 2.4 g/dL (3.5-5.0); BUN 6 mg/dL (8-22); CHLORIDE 103 mmol/L (98-107); COSMO 275; CREATININE 0.6 mg/dL (0.5-0.9); ESTIMATED GFR > 60; GLUCOSE 97 mg/dL (70-104); PHOSPHORUS 3.3 mg/dL (2.7-4.5); POTASSIUM 3.3 mmol/L (3.5-5.1); SODIUM 139 mmol/L (136-145); TCO2 22 mmol/L (25-35)
[2019-06-07 08:12] LABS: EOS 3 % (1-10); LYMPHS 2 % (21-51); MONO 2 % (1-9); SEGS 92 % (42-75)
[2019-06-07] MEDS: VITAMIN B-12 PO SCH (10:17)
[2019-06-07] MEDS: CORDARONE PO SCH (10:18)
[2019-06-07] MEDS: FERROUS SULFATE PO SCH (10:18)
[2019-06-07] MEDS: VITAMIN D PO SCH (10:18)
[2019-06-07] MEDS: XARELTO PO SCH (10:18)
[2019-06-07] MEDS: ASPIRIN PO SCH (10:18)
[2019-06-07] MEDS: DIFICID PO SCH ×2 (10:19→20:17)
[2019-06-07] MEDS: QUESTRAN PO SCH ×2 (10:19→20:17)
[2019-06-07] MEDS: CULTURELLE PO SCH ×2 (10:19→20:17)
[2019-06-07] MEDS: POTASSIUM CHLORIDE 20 MEQ/SWI 20 MEQ/100 ML IVPB IV SCH ×2 (13:04→20:21)
[2019-06-07] MEDS ORDERED: LOMOTIL PO PRN (17:19)
--- NOTE | 2019-06-07 17:43 | PROGRESS NOTE ---
DATE: 06/07/2019 SUBJECTIVE: She is still having diarrhea. She says it is not much better. The only thing recorded is 2 bowel movements and 1 today, so 3. She had 3 yesterday. That is the only thing that has been recorded but according to the nurse taking care of her, she cannot even get up without having sensation of incontinence or things of that nature. OBJECTIVE: Vital Signs: Blood pressure is 119/59, heart rate of 111, respiratory rate 16, temperature 98.2 degrees. Cardiovascular: Regular rate and rhythm, 99% on room air. Pulmonary: Bilateral breath sounds clear to auscultation. GI: Soft, nontender, nondistended. Bowel sounds are positive. DIAGNOSTIC DATA: White count still 25 which is down from 27 yesterday but really not that much improved. Hemoglobin and hematocrit 12 and 39, platelets 476,000. Potassium 3.3, albumin 2.4. PROBLEM LIST: 1. Clostridium difficile colitis. She is on Dificid. She is on vancomycin, which I have increased. I am going to add Flagyl. I cannot imagine that is going to make much of a difference, but it is a very difficult situation because she is not improving. She is on Questran. I am going to give her some Lomotil because at this point we really just need diarrhea control. I do not know, we may need to get a GI opinion. Infectious disease is not an option right now. 2. Chronic obstructive pulmonary disease, stable currently. 3. Congestive heart failure is also compensated. 4. Atrial fibrillation is rate controlled. Amiodarone, Xarelto. DISPOSITION: We are still waiting on getting her C diff under control, which is not been the case now. cc: Taye Cornell MD
[2019-06-07] MEDS: FLAGYL PO SCH (18:59)
[2019-06-07] MEDS ORDERED: CALMOSEPTINE OINTMENT TOP PRN (19:15)
[2019-06-07] MEDS: PRAVACHOL PO SCH (20:17)
[2019-06-08] MEDS: OXY IR PO PRN ×3 (01:52→16:56)
[2019-06-08] MEDS: VANCOCIN PO SCH ×5 (01:52→22:52)
[2019-06-08] MEDS: VENTOLIN HFA INH SCH ×5 (03:50→21:15)
[2019-06-08] MEDS: PRILOSEC PO SCH ×2 (05:33→06:22)
[2019-06-08] MEDS: FLEXERIL PO SCH ×3 (05:34→22:51)
[2019-06-08 06:31] LABS: BASO# 0.05 X1000 (0.0-0.2); BASO% 0.2 % (0.0-0.8); EOS# 0.64 X1000 (0.0-0.7); EOS% 2.6 % (0.0-10.0); HEMATOCRIT 42.2 % (37.0-47.0); HEMOGLOBIN 13.1 g/dL (12.0-16.0); IMM GRAN# 0.25 X1000 (0.0-0.04); LYMPH# 1.72 X1000 (1.2-3.4); MCH 30.5 PG (27-31); MCV 98.4 FL (81-99); MONO# 1.29 X1000 (0.11-0.59); MONO% 5.2 % (1.7-9.3); MPV 9.4 FL (7.4-10.4); NEUT# 20.73 X1000 (1.4-6.5); PLT 541 X1000 (130-400); RBC 4.29 XMIL (4.2-5.4); RDW 16.2 % (11.5-14.5); WBC 24.68 X1000 (4.8-10.8)
[2019-06-08 06:40] LABS: ALBUMIN 2.3 g/dL (3.5-5.0); CALCIUM 8.5 mg/dL (8.8-10.2); CREATININE 0.9 mg/dL (0.5-0.9); PHOSPHORUS 2.5 mg/dL (2.7-4.5); POTASSIUM 3.4 mmol/L (3.5-5.1)
[2019-06-08] MEDS: FERROUS SULFATE PO SCH (10:26)
[2019-06-08] MEDS: FLAGYL PO SCH ×3 (10:26→22:50)
[2019-06-08] MEDS: ASPIRIN PO SCH (10:26)
[2019-06-08] MEDS: CORDARONE PO SCH (10:26)
[2019-06-08] MEDS: DIFICID PO SCH (10:26)
[2019-06-08] MEDS: CULTURELLE PO SCH (10:26)
[2019-06-08] MEDS: VITAMIN D PO SCH (10:26)
[2019-06-08] MEDS: XARELTO PO SCH (10:26)
[2019-06-08] MEDS: VITAMIN B-12 PO SCH (10:27)
[2019-06-08] MEDS: QUESTRAN PO SCH ×2 (10:27→22:50)
[2019-06-08] MEDS ORDERED: NON-FORMULARY BULK MED TOP PRN (12:44)
[2019-06-08] MEDS ORDERED: TYLENOL PO PRN (21:32)
--- NOTE | 2019-06-08 22:15 | PROGRESS NOTE ---
DATE: 06/08/2019 SUBJECTIVE: Patient is still having significant diarrhea. Denies any fevers or chills. PHYSICAL EXAM: Vital signs: Temperature 98 degrees, pulse 60, respiratory rate 18, BP 147/63. General: Patient is pleasant. She is in no distress, lying in the bed. HEENT: Normocephalic. Neck: Supple. Cardiovascular: Regular rate. Chest: Clear. Abdomen: Soft, nondistended. Diffusely tender. Extremities: Moves all extremities. ASSESSMENT: 1. Clostridium difficile colitis. 2. Chronic obstructive pulmonary disease, stable. 3. Atrial fibrillation. 4. Congestive heart failure. 5. Leukocytosis white count 24. 6. Minimal hypokalemia at 3.4. PLAN: She currently is on vancomycin, Flagyl and Dificid. She has been started on Lomotil yesterday. We are going to ask GI for assistance to see if they can help decrease her diarrhea. cc: Gilmar Tovar MD
[2019-06-08] MEDS: PRAVACHOL PO SCH (22:51)
[2019-06-09] MEDS: VENTOLIN HFA INH SCH ×4 (03:15→20:00)
[2019-06-09] MEDS: FLEXERIL PO SCH ×2 (05:18→14:54)
[2019-06-09] MEDS: VANCOCIN PO SCH ×4 (05:18→22:04)
[2019-06-09] MEDS ORDERED: NS 250 ML IV ONE (05:56)
[2019-06-09] MEDS: VITAMIN D PO SCH (10:05)
[2019-06-09] MEDS: VITAMIN B-12 PO SCH (10:05)
[2019-06-09] MEDS: FLAGYL PO SCH ×3 (10:06→16:32)
[2019-06-09] MEDS: CORDARONE PO SCH (10:06)
[2019-06-09] MEDS: XARELTO PO SCH (10:06)
[2019-06-09] MEDS: QUESTRAN PO SCH ×2 (10:06→22:04)
[2019-06-09] MEDS: ASPIRIN PO SCH (10:06)
[2019-06-09] MEDS: OXY IR PO PRN ×2 (10:07→15:00)
--- NOTE | 2019-06-09 14:11 | GASTROENTEROLOGY CONSULTATION ---
DATE: 06/09/2019 REASON FOR CONSULT: Colitis. HISTORY OF PRESENT ILLNESS: Ms. Manzo is an 84-year-old, female, who has been in the hospital since 06/01/2019. The patient was in the hospital due to abdominal pain, nausea, vomiting. She has a history of atrial fibrillation, congestive heart failure, hyperlipidemia, pacemaker placement, hypertension, COPD, duodenal carcinoma. The patient mentioned that prior to her admission to the hospital, she had diarrhea and vomiting, which was going on for more than a week. She has denied any abdominal pain for now. On admission, her blood cultures had shown no growth. Her Clostridium difficile toxin was positive. Stool for occult blood was positive. Stool cultures were negative. The patient's abdomen x-ray on 05/31/2018 showed negative exam. A chest x-ray showed cardiomegaly with mild pulmonary edema. Abdomen and pelvis CT showed diffuse colitis, appendiceal thickening and prominences likely due to the adjacent colitis, cholelithiasis with overly distention of the gallbladder, renal cyst with left renal atrophy and cortical thinning, nonobstructive left renal cyst, fatty infiltrations of the liver, and severe arthrosclerosis. The patient's abdominal x-ray on 06/04/2019 has shown no bowel obstruction. Currently, the patient is receiving Vancocin and Flagyl for her Clostridium difficile. The patient had an EGD done on 02/06/[address] Shaffer, and she had a tumor that was found in the second portion of the duodenum, third portion of the duodenum, and area of the papilla. Chromoscopic procedure was performed. On 02/14/2017, the patient had an EGD with ERCP under fluoroscopy done by Dr. Shaffer, and she had an ulcerated mass in the second portion of the duodenum, across the ampulla, about 2.5 cm in one-third of the circumference. The patient later had resection of the duodenal carcinoma, and had placement of the G-tube on 03/10/2017. PAST MEDICAL HISTORY: Atrial fibrillation, congestive heart failure, hypertension, osteoporosis, macular degeneration, sick sinus syndrome with pacemaker placement, hyperlipidemia, COPD, duodenal carcinoma status post resection and G-tube placement, gallstones and nephrolithiasis. PAST SURGICAL HISTORY: Bilateral knee surgeries, bilateral hip surgeries, left wrist surgery, left duodenal resection and placement of G-tube, permanent pacemaker implantation. SOCIAL HISTORY: The patient is single. She lives with her son. Denies any smoking, alcohol, or illicit drug use. FAMILY HISTORY: Positive for cancer. ALLERGIES: No known drug allergies. HOME MEDICATIONS: Amiodarone 200 mg p.o. daily, vitamin D3 at 2000 units p.o. daily, vitamin B12 at 3000 mcg p.o. daily, iron 325 mg p.o. daily, Lasix 20 mg p.o. daily, Keflex 500 mg p.o. every 12 hours, Xarelto 20 mg p.o. daily, cefpodoxime proxetil 200 mg p.o. twice a day, Flexeril 10 mg p.o. 3 times a day, Colace 100 mg p.o. daily, Zofran 4 mg p.o. every 4 to 6 hours as needed, oxycodone hydrochloride 10 mg p.o. every 4 to 6 hours as needed. REVIEW OF SYSTEMS: As per HPI. Otherwise, 12-point review of systems is negative. PHYSICAL EXAMINATION: Vital Signs: Temperature 97.8, pulse 60, respirations 18, blood pressure 108/43, oxygen saturation 100% on room air. The patient's weight is 205 pounds, BMI is 36.6 kg/m2. General: She is alert and oriented x3, in no acute distress, answering questions appropriately. HEENT: Pale conjunctivae. No icterus. PERRL. Neck: Supple. Lungs: Clear to auscultation. Cardiovascular: The patient is paced. Abdomen: Obese, soft, nontender. Active bowel sounds heard in all 4 quadrants. Extremities: No clubbing, no cyanosis, no edema. Pedal pulse is 2+ present bilaterally. Neurologic: Alert and oriented x3. Nonfocal. Cranial nerves II through XII are grossly intact. LABORATORY DATA: WBCs are 24.68, RBC 4.29, hemoglobin 13.1, hematocrit is 42.2, platelet count is 541,000. Sodium 138, potassium 3.4, chloride 104, carbon dioxide 24, anion gap 10, BUN 8, creatinine is 0.9, glucose is 108, calcium is 8.5, phosphorus is 2.5, albumin is 2.3. IMPRESSION AND PLAN: 1. C-diff colitis 2. Leukocytosis 3. Diarrhea 4. A-fib 5. COPD 6. HTN 7. CHF PLAN: Ms. Manzo is an 84-year-old, female with a history of congestive heart failure and atrial fibrillation. GI has been consulted for her colitis. Currently, the patient's diarrhea is under control. She is receiving vancomycin and Flagyl for her Clostridium difficile. If the patient still continues to have persistent diarrhea, we would recommend changing her p.o. Flagyl to IV Flagyl, but currently the patient has denied having any bowel movements today. We will continue to monitor the patient, and follow the plan of care per PCP. This plan was discussed with Dr. Melgar. Thank you for your consult. Please call us for any further questions or concerns. Dictated by MYRA Reina for Marcelo Melgar MD [facility]
--- NOTE | 2019-06-09 20:50 | PROGRESS NOTE ---
DATE: 06/09/2019 SUBJECTIVE: Patient notes that her diarrhea is actually improving a little. Denies any current fevers or chills. OBJECTIVE: Vital Signs: T-max 100.8 degrees, T current 99, pulse 69, respiratory rate 18, BP 105/68. General: Patient is awake, pleasant. She is in no distress, lying in the bed. HEENT: Normocephalic. Neck: Supple. Cardiovascular: Regular rate. Chest: Clear. Abdomen: Soft diffusely but minimally tender. Positive bowel sounds. Extremities: Moves all extremities. ASSESSMENT: 1. Clostridium difficile colitis. She is still on vancomycin, Flagyl and Dificid. 2. Leukocytosis. White count still 24. 3. Hypokalemia. 4. Fever. 5. Chronic obstructive pulmonary disease, stable. 6. Atrial fibrillation, rate controlled. 7. Congestive heart failure. PLAN: We will continue current medications. Recheck labs. Continue to follow. She is slowly improving. Hopefully to rehab soon. cc: Gilmar Tovar MD
[2019-06-09] MEDS: PRAVACHOL PO SCH (22:04)
[2019-06-10] MEDS: FLEXERIL PO SCH ×4 (00:59→20:58)
[2019-06-10] MEDS: VENTOLIN HFA INH SCH ×4 (03:34→20:30)
[2019-06-10] MEDS: VANCOCIN PO SCH ×4 (04:22→22:06)
[2019-06-10] MEDS: OXY IR PO PRN ×3 (07:50→18:56)
[2019-06-10] MEDS: FLAGYL PO SCH ×2 (07:53→12:28)
[2019-06-10] MEDS: QUESTRAN PO SCH ×3 (07:53→20:59)
[2019-06-10] MEDS: VITAMIN D PO SCH ×2 (07:53→12:27)
[2019-06-10] MEDS: ASPIRIN PO SCH ×2 (07:53→12:26)
[2019-06-10] MEDS: CORDARONE PO SCH ×2 (07:54→12:26)
[2019-06-10] MEDS: VITAMIN B-12 PO SCH ×2 (07:54→12:27)
[2019-06-10] MEDS: XARELTO PO SCH ×2 (07:54→12:28)
[2019-06-10 08:44] LABS: HEMATOCRIT 41.4 % (37.0-47.0); HEMOGLOBIN 12.5 g/dL (12.0-16.0); MCH 29.8 PG (27-31); MCHC 30.2 g/dL (33-37); MCV 98.8 FL (81-99); MPV 9.5 FL (7.4-10.4); RBC 4.19 XMIL (4.2-5.4); RDW 16.1 % (11.5-14.5); WBC 25.23 X1000 (4.8-10.8)
[2019-06-10 09:04] LABS: ALB/GLOB RATIO 0.8; ALBUMIN 2.5 g/dL (3.5-5.0); CREATININE 2.7 mg/dL (0.5-0.9); MAGNESIUM 1.8 mg/dL (1.5-2.7); POTASSIUM 4.6 mmol/L (3.5-5.1); TOTAL BILIRUBIN 0.39 mg/dL (0.20-1.00); TOTAL PROTEIN 5.7 g/dL (6.3-8.3)
[2019-06-10] MEDS: ZOSYN 3.375 GM in NS 50 ML IV SCH ×3 (12:08→20:58)
[2019-06-10] MEDS: CULTURELLE PO SCH ×2 (13:48→20:58)
[2019-06-10] MEDS: FLAGYL 500 MG/NS 500 MG/100 ML IVPB IV SCH ×2 (13:50→18:59)
[2019-06-10 14:23] LABS: CALCIUM 8.7 mg/dL (8.8-10.2); CREATININE 2.9 mg/dL (0.5-0.9)
--- NOTE | 2019-06-10 14:49 | GASTROENTEROLOGY PROGRESS NOTE ---
DATE: 06/10/2019 SUBJECTIVE: Ms. Manzo is an 84-year-old female, resting in bed. The patient was complaining that she is not getting enough rest because too many people are coming in her room. The patient did complain of abdominal tenderness in the upper quadrant. She has denied having any bowel movements today. OBJECTIVE: Vital Signs: Temperature 98.8, pulse 59, respirations 20, blood pressure 97/55, oxygen saturation 98% on 2 L nasal cannula. The patient's weight is 206 pounds. BMI is 37.0 kg/m2. General: She is alert, oriented x2, and in no acute distress. HEENT: Pale conjunctivae. No icterus. PERRL. Neck: Supple. Lungs: Clear to auscultation. Cardiovascular: The patient is bradycardic. Abdomen: Obese, soft. Tender in the upper quadrant. Active bowel sounds heard in all four quadrants. Extremities: No clubbing, no cyanosis, no edema. Pedal pulses 2+ present bilaterally. Neurologic: Alert and oriented x2. Labs: WBCs are 25.23, RBCs 4.19, hemoglobin is 12.5, hematocrit is 21.4, and platelet count is 460,000. Sodium is 131, potassium is 4.6, chloride 96, carbon dioxide 20, anion gap 15, BUN 23, creatinine is 2.7, glucose 138, calcium 9.0. Total bilirubin 1.8, AST is 10, ALT is 6, alkaline phosphatase is 115, albumin is 25. TSH is 0.63. IMPRESSION AND PLAN: 1. Clostridium difficile colitis. 2. Nausea and vomiting. 3. Atrial fibrillation. 4. Congestive heart failure. 5. COPD. 6. Diarrhea. 7. Leukocytosis 8. Fever PLAN: Ms. Manzo is an 84-year-old, female with a history of congestive heart failure and atrial fibrillation. GI is following her for her colitis. Currently, the patient's diarrhea is under control. She has not had any bowel movements yesterday and today. The patient is receiving antibiotic, oral vancomycin 250 mg Q6 hours. We have transitioned her p.o. Flagyl to IV Flagyl and we have started her on Culturelle. The patient is also on Zosyn antibiotic. We recommend putting a hold on the patient's narcotics and antimotility drugs. We will continue to monitor the patient and follow the plan of care as PCP. This plan was discussed with Dr. Mendoza. Please call us for any further questions or concerns. Dictated by MYRA Reina for Nabil Mendoza MD cc: Nabil Mendoza MD I have seen and examined the patient myself and I agree with the above plan of care. Please call us with any further questions or concerns. [facility]
[2019-06-10] MEDS: PRAVACHOL PO SCH (20:58)
--- NOTE | 2019-06-11 00:33 | PROGRESS NOTE ---
DATE: 06/10/2019 SUBJECTIVE: The patient feels better. Diarrhea has improved. OBJECTIVE: VITAL SIGNS: Blood pressure 95/49, heart rate 60, respiratory rate 20, temperature 97.9 degrees. Cardiovascular: Regular rate and rhythm. Pulmonary: Bilateral breath sounds clear auscultation. Gastrointestinal: Soft, nontender, nondistended. Bowel sounds are positive. LABORATORY DATA: White count is still 25,000, hemoglobin and hematocrit 12 and 41, platelets 460,000. Creatinine has jumped up to 2.9. Sodium 132. PROBLEM LIST: 1. Clostridium difficile colitis. She is on vancomycin orally, Flagyl and Dificid and has had some clinical improvement. Gastroenterology has been consulted. Appreciate their assistance. 2. Leukocytosis, which is felt to be secondary to Clostridium difficile. We will continue to monitor. 3. Acute kidney injury. May be due to possible infection versus other issues. We will check urine electrolytes, renal ultrasound and follow. 4. Chronic obstructive pulmonary disease, which appears to be stable currently. 5. Atrial fibrillation is rate controlled and she is also anticoagulated with amiodarone as well as rivaroxaban, which we may need to adjust pending her kidney dysfunction. 6. Fever and urinary tract infection. Her blood is growing gram-negative cirilo. She is currently on Zosyn. We will continue to monitor that very closely. cc: Taye Cornell MD
[2019-06-11] MEDS: FLAGYL 500 MG/NS 500 MG/100 ML IVPB IV SCH ×3 (02:42→17:59)
[2019-06-11] MEDS: VENTOLIN HFA INH SCH ×5 (03:26→20:15)
[2019-06-11] MEDS: VANCOCIN PO SCH ×5 (06:02→23:17)
[2019-06-11] MEDS: FLEXERIL PO SCH ×3 (06:02→20:57)
[2019-06-11 07:37] LABS: BASO# 0.04 X1000 (0.0-0.2); BASO% 0.2 % (0.0-0.8); EOS# 0.28 X1000 (0.0-0.7); EOS% 1.2 % (0.0-10.0); HEMATOCRIT 36.5 % (37.0-47.0); HEMOGLOBIN 11.1 g/dL (12.0-16.0); IMM GRAN# 0.14 X1000 (0.0-0.04); IMM GRAN% 0.6 % (0.0-0.5); LYMPH# 0.65 X1000 (1.2-3.4); LYMPH% 2.9 % (20.5-51.1); MCHC 30.4 g/dL (33-37); MCV 98.6 FL (81-99); MONO# 1.33 X1000 (0.11-0.59); MONO% 5.9 % (1.7-9.3); MPV 9.8 FL (7.4-10.4); NEUT# 20.15 X1000 (1.4-6.5); NEUT% 89.2 % (42.2-75.2); PLT 378 X1000 (130-400); WBC 22.59 X1000 (4.8-10.8)
[2019-06-11 07:54] LABS: CALCIUM 8.2 mg/dL (8.8-10.2); CREATININE 2.7 mg/dL (0.5-0.9); POTASSIUM 4.2 mmol/L (3.5-5.1)
[2019-06-11] MEDS: QUESTRAN PO SCH (09:33)
[2019-06-11] MEDS: ASPIRIN PO SCH (09:34)
[2019-06-11] MEDS: CORDARONE PO SCH (09:34)
[2019-06-11] MEDS: VITAMIN D PO SCH (09:34)
[2019-06-11] MEDS: VITAMIN B-12 PO SCH (09:34)
[2019-06-11] MEDS: CULTURELLE PO SCH ×2 (09:34→20:56)
[2019-06-11] MEDS: ZOSYN 2.25 GM in NS 50 ML IV SCH ×2 (09:35→15:00)
[2019-06-11] MEDS: NS 1,000 ML IV SCH ×2 (09:49→15:03)
--- NOTE | 2019-06-11 10:47 | Diag Imaging Result Doc PS360 ---
EXAM: US RENAL 2 (RETROPER) COMPLETE 06/11/2019 HISTORY: pauly TECHNIQUE: Renal ultrasound COMMENT: There is right hydronephrosis. This appears slightly worse than on the previous study of 06/21/2016. The left renal pelvis is slightly prominent. This is actually less so than on the previous examination. The right kidney measures 10.9 x 6.2 x 6.7 cm, and the left is 9.9 x 5.8 x 4.9 cm. The bladder is not distended. IMPRESSION: Bilateral hydronephrosis right greater than left as described. Electronically signed by Gopi Reyes 06/11/2019 10:44 AM
[2019-06-11] MEDS ORDERED: NS 500 ML IV ONE (13:06)
--- NOTE | 2019-06-11 14:43 | Diag Imaging Result Doc PS360 ---
EXAM: CT RENAL STONE SEARCH 06/11/2019 HISTORY: pauly TECHNIQUE: This exam was performed using automated exposure control, adjustment of mA or kV according to patient size, and/or use of iterative reconstruction technique. COMMENT: The current study is compared with 06/01/2019. There are small bilateral pleural effusions which were not present previously. There is some atelectasis in the lung bases and increased interstitial markings in the right middle lobe and lingula. The latter were present previously and may be related to fibrosis. There is a tiny stone in the lower pole the left kidney with a larger stone in the mid posterior calyx measuring up to 9 mm. There is also a cyst present in the posterior left kidney measuring 4 cm in diameter. There is hydronephrosis on the right as well as hydroureter. There is a 10 mm stone at the UVJ on the right. There is no evidence of bowel obstruction. There are small stones in the dependent portion of the gallbladder. This was also the case previously. There is no evidence of bowel obstruction. There is a fair amount of stool present in the colon. There is presacral edema in the pelvis. There is some subcutaneous edema particularly in the right flank. There has been previous internal fixation of the right femur and left hip arthroplasty. There is vacuum phenomenon in the sacroiliac joints and L5-S1 disc space. IMPRESSION: Pleural effusions and basilar atelectasis. Pulmonary fibrosis. Right hydronephrosis and distal ureterolithiasis. Cholelithiasis. Mild anasarca. Electronically signed by Gopi Reyes 06/11/2019 2:41 PM
[2019-06-11] MEDS: ROCEPHIN 1 GM in NS 50 ML IV SCH (15:04)
--- NOTE | 2019-06-11 15:48 | GASTROENTEROLOGY PROGRESS NOTE ---
DATE: 06/11/2019 SUBJECTIVE: Ms. Manzo is an 84-year-old, female who was resting in bed. The patient complained of not feeling that good. She complained of abdominal tenderness in the upper quadrant. The patient also denied having any bowel movements today. OBJECTIVE: Vital Signs: Temperature 98.6 degrees, pulse 68, respirations 20, blood pressure 97/40, oxygen saturation 100% on 2 L nasal cannula. The patient's weight is 218 pounds. BMI is 38.6 kg/m2. General: She is alert, oriented x3, and in no acute distress. HEENT: Pale conjunctivae, no icterus. PERRLA. Neck: Supple. Lungs: Clear to auscultation. Cardiovascular: Regular rate and rhythm. Abdomen: Obese, soft, tender in the upper quadrant. Active bowel sounds heard in all 4 quadrants. Extremities: No clubbing, no cyanosis, no edema. Pedal pulses 2+ rhythm bilaterally. Neurologic: Alert and oriented x3. LABS: WBC is 22.59, RBC 3.70, hemoglobin 11.1, hematocrit is 36.5, platelet count is 378. Sodium 136, potassium 4.2, chloride 102, carbon dioxide 23, anion gap 11, BUN 27, creatine is 2.7, glucose is 104, calcium is 8.2. IMAGING: Renal ultrasound today showed bilateral hydronephrosis, right greater than the left. Renal CT has shown pleural effusions and bibasilar atelectasis, pulmonary fibrosis, right hydronephrosis and distal ureteral lithiasis, cholelithiasis, mild anasarca IMPRESSION AND PLAN: 1. Clostridium difficile colitis, on antibiotics. 2. Leukocytosis. 3. Diarrhea, resolved. 4. Bacteremia 5. AFIB. 6. Kidney stone PLAN: Ms. Manzo is an 84-year-old, female with a history of congestive heart failure and atrial fibrillation. GI is following her for Clostridium difficile colitis. Currently, the patient's diarrhea is under control. She has not had a bowel movement for the last 3 days onwards. The patient is on vancomycin p.o. and Flagyl IV. She is also receiving Culturelle twice a day. The patient can continue with vancomycin 125 mg for 14 days after completing IV antibiotics for bacteremia. She can follow us up as an outpatient in 4 weeks once she is discharged from the hospital. For now we will sign off. Please call us for any further questions or concerns. This plan was discussed with Dr. Melgar. Dictated by MYRA Reina for Marcelo Melgar MD Physician Attestation I have seen and examined the patient. I have discussed and reviewed the note by Madison RENTERIA and agree with findings and plan as documented. Diarrhea resolved. She is tolerating PO. She has new bacteremia from suspected obstructive uropathy. Recommend continuing vancomycin 125mg PO QID for 14 days after completion of IV antibiotics for bacteremia. Discontinue flagyl IV and decrease vancomycin at primary's team discretion since diarrhea has resolved. Will sign off. Please call with questions. Follow-up with GI in 4-6 weeks. MTDD
[2019-06-11 17:28] LABS: URINE SOURCE CATH
[2019-06-11 17:32] LABS: BILIRUBIN URINE NEGATIVE (NEGATIVE); BLOOD URINE MODERATE (NEGATIVE); COLOR ORANGE; GLUCOSE URINE NEGATIVE (NEGATIVE); KETONE URINE NEGATIVE (NEGATIVE); LEUKOCYTES URINE LARGE (NEGATIVE); NITRITE URINE NEGATIVE (NEGATIVE); PROTEIN URINE 70 mg/dL (NEGATIVE); SP GRAVITY URINE 1.009; TURBIDITY URINE TURBID (CLEAR); UROBILINOGEN URINE NORMAL (NORMAL)
[2019-06-11 17:42] LABS: UR EPITHELIAL CELLS <10 /HPF (<10); URINE BACTERIA 1+ /HPF; URINE CASTS NONE SEEN; URINE CRYSTALS NONE SEEN; URINE RBC TNTC /HPF (<10); URINE SMALL ROUND CELLS NONE SEEN; URINE WBC TNTC /HPF (<10); URINE YEAST PRESENT
--- NOTE | 2019-06-11 17:57 | PROGRESS NOTE ---
DATE: 06/11/2019 SUBJECTIVE: She says diarrhea pretty much has resolved, but of course, now she has bacteremia, which unclear what source that is from. OBJECTIVE: vital signs: Blood pressure is pretty stable 107/57, heart rate of 60, respiratory rate 24, temperature 98.3 degrees. She has not had a temperature since the when I think the blood cultures were drawn and she had 1 gram-negative cirilo. Cardiovascular: Regular rate and rhythm. Pulmonary: Bilateral breath sounds clear to auscultation. Gastrointestinal: Soft, nontender, nondistended. Bowel sounds are positive. PROBLEM LIST: 1. Clostridium difficile colitis. She is on vancomycin and Flagyl and Dificid and she seems fine. GI has seen her, but they feel like her bowels have gotten better pretty much since consulted. CT scan now shows she is constipated, so that is one issue. 2. Gram-negative cirilo bacteremia. This looks like it is associated with a kidney stone at least that would be my interpretation. I am going to get a urology consult. It looks like she has had this before, but it was not dealt with before. I am not sure when they did this CT. I guess she had a CT on May 31, but they did not comment on the hydro at that time, actually it said no hydro, but they are saying today, there is a 10 mm stone at the UPJ junction and then she has got stones in her kidney in the calices, but it looks like she has a 10 mm stone and she may be bacteremic from that, so we will get a urology consult. I guess we will make her NPO after midnight. She is on Xarelto so we will stop that and follow. 3. She has Clostridium difficile colitis. We are treating that actively. 4. Atrial fibrillation is under control. DISPOSITION: I think it is pending the kidney stone issues. I anticipate possibly that she should go home soon or rehab. They have a bed ready for her today, but we will continue to follow. cc: Taye Cornell MD
[2019-06-11 18:11] LABS: UR CREAT RANDOM 39.3 mg/dL (11-20); UR PROT RANDOM 50.4 mg/dL
[2019-06-11] MEDS: PRAVACHOL PO SCH (20:57)
[2019-06-12] MEDS: FLAGYL 500 MG/NS 500 MG/100 ML IVPB IV SCH ×3 (02:11→17:45)
[2019-06-12] MEDS: NS 1,000 ML IV SCH ×2 (02:14→06:14)
[2019-06-12] MEDS: VENTOLIN HFA INH SCH ×3 (03:45→21:49)
[2019-06-12] MEDS: VANCOCIN PO SCH ×4 (06:13→21:54)
[2019-06-12] MEDS: FLEXERIL PO SCH ×3 (06:14→21:55)
[2019-06-12 07:15] LABS: BASO# 0.03 X1000 (0.0-0.2); BASO% 0.2 % (0.0-0.8); EOS# 0.35 X1000 (0.0-0.7); EOS% 2.3 % (0.0-10.0); HEMATOCRIT 34.5 % (37.0-47.0); HEMOGLOBIN 10.5 g/dL (12.0-16.0); IMM GRAN# 0.06 X1000 (0.0-0.04); IMM GRAN% 0.4 % (0.0-0.5); LYMPH# 0.88 X1000 (1.2-3.4); LYMPH% 5.9 % (20.5-51.1); MCH 30.1 PG (27-31); MCHC 30.4 g/dL (33-37); MCV 98.9 FL (81-99); MONO# 1.17 X1000 (0.11-0.59); MONO% 7.8 % (1.7-9.3); MPV 9.7 FL (7.4-10.4); NEUT# 12.48 X1000 (1.4-6.5); NEUT% 83.4 % (42.2-75.2); PLT 376 X1000 (130-400); RBC 3.49 XMIL (4.2-5.4); RDW 16.3 % (11.5-14.5); WBC 14.97 X1000 (4.8-10.8)
[2019-06-12 07:51] LABS: CALCIUM 7.8 mg/dL (8.8-10.2); POTASSIUM 3.5 mmol/L (3.5-5.1)
[2019-06-12] MEDS ORDERED: XYLOCAINE-MPF 2% ONE (09:16)
[2019-06-12] MEDS ORDERED: DIPRIVAN 1% ONE (09:16)
--- NOTE | 2019-06-12 09:25 | CONSULTATION ---
DATE OF CONSULTATION: 06/12/2019 CONSULTING PHYSICIAN: Dr. Cornell with the Hospitalist Service. REASON FOR CONSULTATION: Right ureteral stone, hydroureteronephrosis, urosepsis. HISTORY OF PRESENT ILLNESS: An 84-year-old female who is known to me secondary to a history of left ureteropelvic junction stone in 2019. At that time, she underwent cystoscopy with stent placement followed by left extracorporeal shockwave lithotripsy and cystoscopy with stent removal. She had not followed up in clinic. She has been admitted with feeling bad and abdominal pain, leukocytosis. She did have a CT scan on 06/01/2019, which did not report hydronephrosis or ureteral stones. She had been slow to progress and underwent renal ultrasound on 06/11/2019, which revealed bilateral hydronephrosis. This was followed up by renal stone search CT scan on 06/11/2019 which revealed left renal stones as well as a 10 mm right ureterovesical junction stone with significant hydroureteronephrosis. She reports she has abdominal pain. She denies gross hematuria. She has had urinary tract infections with documented cultures in November with E coli and most recently on 06/08/2019, culture documented blood with Enterobacter with the urinalysis concerning for the same bacteria. PAST MEDICAL HISTORY: Atrial fibrillation, hypertension, CHF, macular degeneration, hyperlipidemia, COPD, small-bowel tumor, gallstones, ureterolithiasis. PAST SURGICAL HISTORY: Right hip arthroplasty, left knee arthroplasty, left wrist surgery, duodenal resection, pacemaker, ESWL. ALLERGIES: No known drug allergies. HOME MEDICATIONS: Amiodarone, vitamin D, iron, Lasix, Zofran, oxycodone, Xarelto. SOCIAL HISTORY: Denies tobacco, alcohol or illicit drug use. FAMILY HISTORY: Negative for malignancies. REVIEW OF SYSTEMS: Reviewed and 12 systems negative except for the HPI. PHYSICAL EXAMINATION: Vital signs: Temperature 98.4 degrees, pulse 69, blood pressure 93/39. General: No acute distress. Pleasant female. HEENT: Normocephalic, atraumatic. Cardiovascular: Regular rate and rhythm. Pulmonary: Bilateral breath sounds. Abdomen: Soft, protuberant, nontender to palpation. Back: Mild right CVA tenderness. Genitourinary: Bladder is nontender to palpation. Normal external female genitalia. Atrophic vaginitis noted. Dermatologic: No skin rashes noted. Lymphatic: No cervical lymphadenopathy. No groin lymphadenopathy. Musculoskeletal: Moves all extremities well. Neurologic: Alert and oriented x3. Psychiatric: Appropriate mood and affect. PERTINENT LABORATORY DATA: White cell count is 15,000 today, it was 23,000 yesterday, creatinine is 2, down from 2.7. Her urinalysis on 06/11/2019 revealing bacteria, leukocytes, blood. PERTINENT IMAGES: CT renal stone search on 06/11/2019 revealed a 4 cm left renal cyst, 9 mm and 1 mm left renal stones, and hydroureteronephrosis on the right with a 10 mm stone in the right distal ureter. ASSESSMENT AND PLAN: An 84-year-old female with previous history of ureterolithiasis who has an obstructing stone at the distal ureter which is very sizable, causing severe hydroureteronephrosis and ureteral obstruction. She basically has urosepsis with Enterobacter growing in her blood. She has been on Rocephin and vancomycin. I have discussed with the patient that a large obstructing stone is likely the source of her urosepsis. We discussed intervention with cystoscopy, right ureteroscopy, laser lithotripsy, stone basket extraction, and likely ureteral stent. Risks of the procedure including but not limited to bleeding, infection, injury to the kidney, injury to adjacent structures, inability remove the entire stone, need for additional interventions were explained. Ms. Manzo asked me to call Joe, her son. I have done so and explained to him the situation. He states that he fully supports his mom having a procedure to have the ureteral stone removed. We also discussed that at a later outpatient setting, we could look into 24 urine studies to see why she keeps making stones at this rate. PLAN: 1. N.p.o. now. 2. To operating room for cystoscopy, right ureteroscopy, laser lithotripsy, stone basket extraction, placement of right ureteral stent. cc: Conrad Mike MD
[2019-06-12] MEDS ORDERED: DECADRON ONE (10:20)
[2019-06-12] MEDS ORDERED: ZOFRAN ONE (10:20)
[2019-06-12] MEDS ORDERED: LR 500 ML ONE (10:57)
[2019-06-12] MEDS: LASIX ONE ×2 (11:06→16:27)
[2019-06-12] MEDS ORDERED: DUONEB (A & A) ONE (11:09)
--- NOTE | 2019-06-12 11:53 | OPERATIVE NOTE ---
PROCEDURE DATE: 06/12/2019 SURGEON: Dr. Conrad Mike. PREOPERATIVE DIAGNOSES: 1. Right obstructing ureteral stone. 2. Hydronephrosis. 3. Urosepsis. POSTOPERATIVE DIAGNOSES: 1. Right obstructing ureteral stone. 2. Hydronephrosis. 3. Urosepsis. PROCEDURE NAME: Cystoscopy, right ureteroscopy, laser lithotripsy, stone basket extraction, placement of 6-Congolese-22 cm ureteral stent. INDICATIONS: An 84-year-old female with previous history of ureterolithiasis who has been in the hospital with bacteremia and now apparent urosepsis. She had imaging, but on repeat imaging with CT scan on 06/11/2019, she was found to have a 10 mm right distal ureteral stone with hydronephrosis. She was counseled on intervention. FINDINGS: Obstructing stone, significant proximal hydroureteronephrosis. Successful stent placement. The stone fragments were sent off for analysis. PROCEDURE: After obtaining informed consent, the patient was brought to the operating room. Preoperative antibiotics and laryngeal mask anesthesia were administered. She was placed in lithotomy position and prepped and draped in sterile fashion. A 21-Congolese rigid cystoscope was introduced into the bladder. There was quite a bit of cloudy urine which was copiously irrigated. Attention was turned to the right ureteral orifice. The PTFE wire was used to cannulate the orifice and resistance was met 3 to 4 cm away from the orifice. Hence, I switched to a rigid ureteroscope and was able to negotiate the scope into the distal right ureter. The stone was seen. The PTFE wire was advanced alongside the stone to the level of the renal pelvis. Following that, the 0 Nitinol basket was used to secure the stone. A 365 micron Holmium laser fiber was used to break the stone up into multiple smaller fragments. The fragments were retrieved and sent off for analysis. Repeat ureteroscopy to the level of proximal ureter showed no evidence of ureteral injury and no evidence of sizable residual stones remaining. Given significant mucosal edema, we placed a ureteral stent. In standard fashion, a 6-Congolese-22 cm ureteral stent was advanced over the wire via cystoscope with the proximal coil position confirmed fluoroscopically, distal coil directly visualized. The string was left attached to the stent. The bladder was emptied, she was extubated and taken to PACU for further recovery. ESTIMATED BLOOD LOSS: None. COMPLICATIONS: None. DRAINS: 6-Congolese-22 cm stent. SPECIMENS: Right ureteral stone fragments which were sent off for analysis. DISPOSITION: To PACU and subsequently floor with directions to have ureteral stent removed on 06/15/2019. cc: Conrad Mike MD
[2019-06-12] MEDS: CULTURELLE PO SCH ×2 (12:07→21:54)
[2019-06-12] MEDS: VITAMIN B-12 PO SCH (12:07)
[2019-06-12] MEDS: CORDARONE PO SCH (12:08)
[2019-06-12] MEDS: VITAMIN D PO SCH (12:08)
[2019-06-12] MEDS: ASPIRIN PO SCH (12:08)
[2019-06-12] MEDS: ROCEPHIN 1 GM in NS 50 ML IV SCH (12:13)
[2019-06-12] MEDS: MAXIPIME 1 GM in NS 50 ML IV SCH (17:38)
--- NOTE | 2019-06-12 20:24 | PROGRESS NOTE ---
DATE: 06/12/2019 INTERVAL HISTORY: Urology had evaluated the patient and she underwent cystoscopy, right ureteroscopy, laser lithotripsy and right ureteral stent placement, which she tolerated well. SUBJECTIVE: Ms. Manzo denies any chest pain, shortness of breath or cough. She denies abdominal pain, nausea or vomiting. Review of system: Positive for loose stool. Negative for dysuria. Negative for headache. Negative for fever or chills. OBJECTIVE: Currently vital signs suggestive of temperature of 97.4 degrees, pulse 60, respiratory rate 18, blood pressure 107/44, saturating 100% on 2 L nasal cannula. On physical examination she is morbidly obese, not in acute distress. Oral cavity is moist. Air entry bilaterally equal. No wheeze or rhonchi. She has crackles, infrascapular region. S1, S2 normal, appears regular. No murmur, rub or gallop. Abdomen is obese, soft, nontender. She has bilateral lower extremity edema. She is alert and oriented x3. LABORATORY DATA: Labs suggestive of WBC 14,000, hemoglobin 10.5, platelets 376,000. BUN is 29, creatinine 2. Her calcium is 7.8. Microbiology: Blood cultures are in lab. Initial blood cultures were growing Enterobacter cloacae, which was resistant to ceftriaxone and sensitive to cefepime. ASSESSMENT AND PLAN: 1. Acute Clostridium difficile colitis associated with antibiotic use for urinary tract infection outpatient. Continue oral vancomycin, intravenous Flagyl as per recommendations from Gastroenterology. 2. Sepsis due to acute pyelonephritis by Enterobacter cloacae, with Enterobacter cloacae bacteremia. Change antibiotics to intravenous cefepime. Repeat blood cultures have been ordered. 3. Obstructive hydronephrosis of right due to ureteral stone, status post cystoscopy, right ureteroscopy, laser lithotripsy, stone basket extraction, and ureteral stent placement on 06/11 by Urology. Appreciate postoperative recommendations. 4. Acute kidney injury, likely due to obstructive renal failure. I will follow up with renal function closely. I will stop intravenous fluids. 5. History of atrial fibrillation and congestive heart failure with preserved ejection fraction, as well as pulmonary hypertension. She currently does appear to have features of cor pulmonale. I will stop intravenous fluids. In the future I will consider starting her on diuretics. I will continue her amiodarone, pravastatin, aspirin. 6. History of sick sinus syndrome, status post pacemaker; chronic obstructive pulmonary disease. Currently stable. I will resume her home Xarelto when appropriate. 7. Disposition: Continue to monitor the patient inside the hospital. Plan of care discussed with her. Her questions have been answered. Time spent: 35 minutes. cc: Mynor Colunga MD MTDD
[2019-06-12] MEDS: PRAVACHOL PO SCH (21:54)
[2019-06-12] MEDS: PERIDEX MT SCH (21:54)
[2019-06-13] MEDS: VANCOCIN PO SCH ×6 (00:45→22:09)
[2019-06-13] MEDS: NS 1,000 ML IV SCH (00:47)
[2019-06-13] MEDS: FLAGYL 500 MG/NS 500 MG/100 ML IVPB IV SCH ×3 (02:38→19:52)
[2019-06-13] MEDS: VENTOLIN HFA INH SCH ×5 (03:40→21:17)
[2019-06-13] MEDS: MAXIPIME 1 GM in NS 50 ML IV SCH ×2 (04:15→17:25)
[2019-06-13] MEDS: FLEXERIL PO SCH ×3 (05:05→21:51)
[2019-06-13 07:05] LABS: BASO# 0.01 X1000 (0.0-0.2); BASO% 0.1 % (0.0-0.8); HEMATOCRIT 34.1 % (37.0-47.0); HEMOGLOBIN 10.6 g/dL (12.0-16.0); IMM GRAN# 0.03 X1000 (0.0-0.04); IMM GRAN% 0.3 % (0.0-0.5); LYMPH# 0.63 X1000 (1.2-3.4); LYMPH% 7.3 % (20.5-51.1); MCHC 31.1 g/dL (33-37); MCV 96.6 FL (81-99); MONO# 0.42 X1000 (0.11-0.59); MONO% 4.8 % (1.7-9.3); MPV 9.7 FL (7.4-10.4); NEUT# 7.58 X1000 (1.4-6.5); NEUT% 87.5 % (42.2-75.2); PLT 457 X1000 (130-400); RBC 3.53 XMIL (4.2-5.4); RDW 15.9 % (11.5-14.5); WBC 8.67 X1000 (4.8-10.8)
[2019-06-13 07:27] LABS: LYMPHS 2 % (21-51); MONO 4 % (1-9); SEGS 92 % (42-75)
[2019-06-13 07:32] LABS: CALCIUM 7.9 mg/dL (8.8-10.2); CREATININE 1.6 mg/dL (0.5-0.9); POTASSIUM 3.6 mmol/L (3.5-5.1)
[2019-06-13] MEDS: VITAMIN D PO SCH (12:36)
[2019-06-13] MEDS: ASPIRIN PO SCH (12:37)
[2019-06-13] MEDS: CULTURELLE PO SCH ×2 (12:37→21:51)
[2019-06-13] MEDS: CORDARONE PO SCH ×2 (12:37→12:51)
[2019-06-13] MEDS: VITAMIN B-12 PO SCH (12:37)
[2019-06-13] MEDS: PERIDEX MT SCH ×2 (12:37→21:51)
[2019-06-13] MEDS: OXY IR PO PRN ×2 (12:54→21:55)
[2019-06-13] MEDS ORDERED: LASIX PO ONE (15:25)
--- NOTE | 2019-06-13 15:46 | PROGRESS NOTE ---
DATE: 06/13/2019 INTERVAL HISTORY: No acute events overnight. Ms. Manzo' vitals were unremarkable. Her leukocytosis has resolved. She continues to have loose stools. However, the frequency is decreasing. SUBJECTIVE: She denies chest pain, shortness of breath, or cough. She denies nausea, vomiting, abdominal pain. We discussed about continuing her on antibiotics, waiting for final blood culture results. VITALS: Temperature 98.3 degrees, pulse 60, respiratory rate 20, blood pressure 110/52, saturating 99% on nasal cannula at 3 L. PHYSICAL EXAMINATION: Morbidly obese. Not in any acute distress. Oral cavity is moist. Lungs: Air entry bilaterally equal. No wheeze or rhonchi. Mild crackles in infrascapular region. S1, S2 normal. Systolic ejection murmur affecting right second intercostal space, without any rub or gallop. Abdomen: Obese, soft, nontender. She has a urine catheter which is connected to suction cannula. She has bilateral lower extremity edema. She is alert and oriented x3. Input and output suggest -1000 mL yesterday. LABS: Suggestive of WBC 8.6, hemoglobin 10.6, platelets 457,000. BUN is 28, creatinine 1.6. MICROBIOLOGY: Repeat blood cultures are in lab, has not shown any growth. IMAGING: No new imaging. ASSESSMENT AND PLAN: 1. Acute Clostridium difficile colitis associated with antibiotic use outpatient for urinary tract infection, improving. Continue oral vancomycin, intravenous Flagyl, as per gastroenterology recommendation for a total of 10 days. Her diarrhea frequency is decreasing. I will keep her on Culturelle capsules. 2. Enterobacter cloacae sepsis due to acute pyelonephritis associated with a right ureteric stone. Continue intravenous cefepime. Follow up repeat blood culture data. She may need up to 14 days of antibiotics after negative blood cultures. Levaquin orally could be an option. 3. Acute hydronephrosis of right side due to ureteric obstruction, status post cystoscopy, right ureteroscopy, lithotripsy, stone basket extraction, and stent placement on June 11 by urology. Her postoperative course has been unremarkable. I will start her on enoxaparin for deep venous thrombosis prophylaxis. 4. Acute kidney injury due to obstructive renal failure, now improving. Continue to monitor BMP closely. I will give the patient gentle diuresis for her lower extremity edema. 5. History of atrial fibrillation and congestive heart failure with preserved ejection fraction, pulmonary hypertension, sick sinus syndrome, status post pacemaker, are currently stable. I will continue her home amiodarone, aspirin, pravastatin. Eventually, I will resume her Xarelto for primary cerebrovascular accident prophylaxis. Currently, I am keeping her on enoxaparin for deep venous thrombosis prophylaxis. 6. Disposition. Continue physical therapy, the evaluation of which is pending. The patient agrees to go to rehab. Social work, rehab consult has been placed. I will keep her on oxycodone as needed for chronic pain. I will continue to monitor patient inside the hospital as I await final blood culture results to confirm they are negative. Based on them, I would anticipate discharge to rehab in the next 24 to 48 hours if a bed becomes available. Plan of care discussed with Ms. Manzo. She was allowed to ask questions. Her questions have been answered. cc: Mynor Colunga MD MTDD
[2019-06-13] MEDS: LOVENOX SUBQ SCH (17:26)
[2019-06-13] MEDS: PRAVACHOL PO SCH (21:51)
[2019-06-14] MEDS: FLAGYL 500 MG/NS 500 MG/100 ML IVPB IV SCH ×3 (03:22→18:39)
[2019-06-14] MEDS: VENTOLIN HFA INH SCH ×5 (03:36→23:31)
[2019-06-14] MEDS: VANCOCIN PO SCH ×5 (05:04→22:19)
[2019-06-14] MEDS: OXY IR PO PRN ×3 (05:04→18:39)
[2019-06-14] MEDS: MAXIPIME 1 GM in NS 50 ML IV SCH ×2 (05:05→18:39)
[2019-06-14] MEDS: FLEXERIL PO SCH ×3 (05:31→20:31)
[2019-06-14 07:12] LABS: INR 1.18; PROTIME 15.2 Seconds (11.0-16.0)
[2019-06-14 07:43] LABS: CALCIUM 8.1 mg/dL (8.8-10.2); CREATININE 1.4 mg/dL (0.5-0.9); POTASSIUM 3.2 mmol/L (3.5-5.1)
--- NOTE | 2019-06-14 09:12 | Diag Imaging Result Doc PS360 ---
EXAM: FLUOROSCOPY CYSTO INDICATION: RT STONE REMOVAL/STENT PLACEMENT TECHNIQUE: COMPARISON: None. FINDINGS: Nine spot fluoroscopic images were provided, which were performed during right ureteral stent placement by Dr. Conrad Mike. On the final image, the newly placed right ureteral stent is identified in the expected position. IMPRESSION: As above. Please correlate with live fluoroscopic imaging. Electronically signed by Sandeep Patel 06/14/2019 9:10 AM
[2019-06-14] MEDS: PERIDEX MT SCH ×2 (10:47→20:30)
[2019-06-14] MEDS: VITAMIN B-12 PO SCH (10:47)
[2019-06-14] MEDS: VITAMIN D PO SCH (10:48)
[2019-06-14] MEDS: CULTURELLE PO SCH ×2 (10:48→20:31)
[2019-06-14] MEDS: ASPIRIN PO SCH (10:48)
[2019-06-14] MEDS: CORDARONE PO SCH (10:51)
[2019-06-14] MEDS ORDERED: KLOR-CON PO ONE (12:40)
[2019-06-14] MEDS ORDERED: NS 250 ML ONE (14:46)
--- NOTE | 2019-06-14 17:48 | PROGRESS NOTE ---
DATE: 06/14/2019 SUBJECTIVE: She seems to be doing okay. Now she describes loose stools, but her imaging showed constipation, so I am not entirely sure, but she is here for Clostridium difficile colitis. OBJECTIVE: Vital Signs: Blood pressure is 118/55, heart rate 68, respiratory rate 16, temperature 98.2 degrees, 99 percent on 2 L. Cardiovascular: Regular rate and rhythm. Pulmonary: Bilateral breath sounds clear to auscultation. GI: Soft, nontender, nondistended. Bowel sounds are positive. Potassium 3.2, creatinine 1.4. PROBLEM LIST: 1. Clostridium difficile colitis. She is on vancomycin and Flagyl, and I think we stopped this. 2. Enterobacter cloacae sepsis due to a right ureteral stone with impaction. She is on antibiotics. We are going to do Levaquin and not do IV antibiotics since it is susceptible to Levaquin. 3. Ureteral stone obstruction with hydronephrosis. Appreciate Urology input. 4. Acute kidney injury. That is slowly improving. 5. Atrial fibrillation, is stable currently. DISPOSITION: Pending her clinical status, we are looking at going back to rehab, however, unfortunately, she will need Covid testing which was accomplished today, because I anticipate that hopefully nothing else will go wrong prior to discharge. cc: Taye Cornell MD
[2019-06-14] MEDS: LOVENOX SUBQ SCH (18:39)
[2019-06-14] MEDS: PRAVACHOL PO SCH (20:31)
[2019-06-15] MEDS: FLAGYL 500 MG/NS 500 MG/100 ML IVPB IV SCH ×2 (02:39→12:28)
[2019-06-15] MEDS: VENTOLIN HFA INH SCH ×4 (03:40→15:30)
[2019-06-15] MEDS: VANCOCIN PO SCH ×2 (05:06→12:29)
[2019-06-15] MEDS: MAXIPIME 1 GM in NS 50 ML IV SCH (05:06)
[2019-06-15] MEDS: FLEXERIL PO SCH ×2 (06:00→12:29)
[2019-06-15 07:44] LABS: BASO# 0.05 X1000 (0.0-0.2); BASO% 0.6 % (0.0-0.8); EOS# 0.42 X1000 (0.0-0.7); EOS% 5.3 % (0.0-10.0); HEMATOCRIT 37.8 % (37.0-47.0); HEMOGLOBIN 11.5 g/dL (12.0-16.0); IMM GRAN# 0.02 X1000 (0.0-0.04); IMM GRAN% 0.3 % (0.0-0.5); LYMPH# 1.55 X1000 (1.2-3.4); LYMPH% 19.4 % (20.5-51.1); MCH 29.8 PG (27-31); MCHC 30.4 g/dL (33-37); MCV 97.9 FL (81-99); MONO# 0.83 X1000 (0.11-0.59); MONO% 10.4 % (1.7-9.3); MPV 9.8 FL (7.4-10.4); PLT 485 X1000 (130-400); RBC 3.86 XMIL (4.2-5.4); RDW 16.1 % (11.5-14.5); WBC 7.97 X1000 (4.8-10.8)
[2019-06-15 08:38] LABS: CALCIUM 8.2 mg/dL (8.8-10.2); CREATININE 1.1 mg/dL (0.5-0.9); POTASSIUM 4.4 mmol/L (3.5-5.1)
[2019-06-15] MEDS: VITAMIN B-12 PO SCH (08:49)
[2019-06-15] MEDS: VITAMIN D PO SCH (08:49)
[2019-06-15] MEDS: CORDARONE PO SCH (08:49)
[2019-06-15] MEDS: PERIDEX MT SCH (08:50)
[2019-06-15] MEDS: CULTURELLE PO SCH (08:50)
[2019-06-15] MEDS: ASPIRIN PO SCH (08:50)
--- NOTE | 2019-06-15 15:28 | DISCHARGE SUMMARY ---
ADMISSION DATE: 06/02/2019 DISCHARGE DATE: 06/15/2019 ADMISSION DIAGNOSES: 1. Clostridium difficile colitis. 2. Acute congestive heart failure. 3. Atrial fibrillation. 4. Chronic obstructive pulmonary disease. 5. History of pacemaker implantation. 6. History of osteoporosis. 7. Hypertension. 8. History of macular degeneration. DISCHARGE DIAGNOSES: 1. Clostridium difficile colitis. 2. Enterobacter cloacae sepsis due to a right ureteral stone with impaction. 3. Ureteral stone obstruction with hydronephrosis. 4. Acute kidney injury, slowly improving. 5. Atrial fibrillation, stable. CONSULTATIONS: 1. Dr. Bridges. 2. Dr. Marcelo Melgar. 3. Conrad Mike MD. 4. nursing surgical services director. SURGERIES OR PROCEDURES: On 06/12/2019, performed by Dr. Mike, for right obstructive ureteral stone, hydronephrosis., he performed a cystoscopy, right ureteroscopy, laser lithotripsy, stone basket extraction, and placement of a 6-Bruneian, 22 cm ureteral stent. HOSPITAL COURSE: Deanna Manzo is an 84-year-old female with a medical history of atrial fibrillation, congestive heart failure, pacemaker, and COPD, who came in with complaints of nausea, vomiting, and abdominal pain. Apparently had been going on for at least 6 days with diarrhea twice a day. Significantly elevated white count at 42,000, positive for C. difficile and during this time, she was found to have a right obstructing ureteral stone with hydronephrosis. This in turn caused her to have a bacteremia with Enterobacter which was resistant to cefazolin, ceftazidime, ceftriaxone, and Zosyn. Dr. Bridges had been consulted. He felt like the symptoms were for the C. difficile and that her gallstones were asymptomatic, and she was not needed for surgery on that. She was initiated on oral vancomycin. She had a renal CT on the which is what showed the right hydronephrosis and the distal ureterolithiasis. Dr. Mike, on the , was consulted and performed stone basket extraction with lithotripsy and stent placement. Gastroenterology had also been consulted for the C. difficile. Flagyl was also added during her stay. Eventually, the GI symptoms improved. She developed acute kidney injury on the , which improved. Urine was clear. Eventually, the oral vancomycin and the Flagyl were stopped. Antibiotic therapy was Levaquin for the Enterobacter and the acute kidney injury started to improve. Atrial fibrillation remained stable. DISCHARGE VITAL SIGNS: Temperature 97.6 degrees, heart rate 60, respiratory rate 14, blood pressure 99/44, O2 saturation 100% on room air. DISCHARGE LABORATORY DATA: White blood cells 7000, hemoglobin 11, hematocrit 37, platelet count 485,000. Sodium 141, potassium 4.4, BUN 25, creatinine is 1.1, glucose 90, calcium 8.2. Coronavirus testing undetected. PERTINENT IMAGING: On the , abdominal x-ray is negative exam. Chest x-ray, cardiomegaly with mild pulmonary edema. Abdominopelvic CT showed diffuse colitis, cholelithiasis, distended gallbladder, renal cyst, left renal atrophy and cortical thinning, fatty infiltration of liver, and severe atherosclerosis. Abdominal x-ray, no bowel obstruction. On the , a renal ultrasound, bilateral hydronephrosis, right greater than left. Renal CT on the showed pleural effusions and basilar atelectasis, pulmonary fibrosis, right hydronephrosis and distal urolithiasis, cholelithiasis, mild anasarca. EKG on the showed atrial paced rhythm, rate 63. DISCHARGE MEDICATIONS: 1. Vitamin B12 with 3000 mcg p.o. daily. 2. Colace 100 mg p.o. daily. 3. Amiodarone 200 mg p.o. daily. 4. Vitamin D3 with 2000 units p.o. daily. 5. Flexeril 10 mg p.o. t.i.d. 6. Iron 325 mg p.o. daily. 7. Lasix 20 mg p.o. daily. 8. Oxycodone 10 mg p.o. q.4-6 hours p.r.n. 9. Zofran 4 mg p.o. every 4 to 6 hours p.r.n. 10. Levaquin 500 mg p.o. daily for 14 days. 11. Vancomycin 250 mg p.o. t.i.d. for 42 doses. 12. Xarelto 20 mg p.o. daily. PHYSICIAN FOLLOWUP: Dr. Rodgers, probably Dr. Mike as well. ACTIVITY: Weigh daily and record weights. Activity as tolerated. Do not drive while taking pain medication. DIET: Regular. DISCHARGE INSTRUCTIONS: If your condition changes, contact physician and/or return to the emergency department. Changes may include, but are not limited to shortness of breath, increased fatigue, excessive bleeding, unexplained weight loss or gain, unmanageable pain, signs or symptoms of infection. Notify MD for fever of 101 or greater, shortness of breath, chest pain, swelling in your feet or ankles, weight gain of 4 pounds or more a week, worsening of symptoms, or other concerns. DISCHARGE DISPOSITION: [facility]. Dictated by MYRA Hawk for Taye Cornell MD cc: MYRA Hawk MD
--- NOTE | 2019-06-15 15:51 | DISCHARGE SUMMARY ---
ADMISSION DATE: 06/01/2019 DISCHARGE DATE: 06/15/2019 The day of discharge, she is looking well. No major complaints. Diarrhea has stopped. OBJECTIVE: Vital Signs: Blood pressure 99/44, heart rate of 60, respiratory rate 14, temperature 97.6 degrees, 100% on 2 L. Cardiovascular: Regular rate and rhythm. Pulmonary: Bilateral breath sounds clear to auscultation. GI: Soft, nontender, nondistended. Bowel sounds are positive. PROBLEM LIST: 1. Clostridium difficile. She is stable. We will discharge her on vancomycin as long as she is on the other antibiotic. 2. Enterobacter cloacae sepsis due to a ureterolithiasis which required stent. We will continue Levaquin, it seems to be susceptible to that, for total of 2 weeks. 3. Ureteral stone obstruction with hydronephrosis. She is status post JJ stent. She will need follow up with Urology. 4. Acute kidney injury, is essentially resolved so this stone probably had been a developing issue because she had normal kidney function and then overnight, somewhere between June 07 and June 09 suddenly had a bump in her creatinine and she did not have the stone on admission, at least it was not seen on her kidney. DISPOSITION: We will discharge today and see how she does. cc: Taye Cornell MD
[2019-06-15 16:24] VITALS: BP 113/44
== END 2019-06-15 17:24 | DRG 854 ==
LOC: ED 14:56 → 4N 23:11 → SUATTDRO 23:11 → 4N 06-02 14:36
PROVIDERS: ATTEND Internal Medicine